=== PATIENT | female | born 1940 | race Caucasian/White ===

== ENCOUNTER 2018-09-21 09:15 | Outpatient (RCR) | payer MEDICARE, SELFPAY ==
[2018-07-20 11:05] VITALS: BMI 21.4
--- NOTE | 2018-12-14 12:04 | HP.SP.DC_ITS ---
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 The Patient participated in intervention sessions consisting of training and implementation of a Trismus based exercise program to promote improved (karin-irradiation) and sustained (post-irradiation) mandibular functioning; diet texture management; training, implementation of a home oral care protocol to reduce the effects of xerostomia and improve / maintain the integrity of the oral mucosa reducing the risk of aspiration related pulmonary complications; and Patient / caregiver education regarding karin and post- irradiation dysphagia and associated symptomology. The Patient demonstrated excellent comprehension and insight into the above mentioned intervention targets, with a high likelihood for compliance regarding all therapeutic recomm endations. Will discharge from the skilled speech-language pathology caseload at this time, as all intervention goals have been achieved, though would gladly re- initiate intervention as needed moving forward.
--- OUTSIDE RECORDS SUMMARY | 2018-12-17 18:46 | XMS RPT_ITS ---
:1940 Author Organization OHIP Support Name Relationship Address Phone TASNEEM ROTH Unavailable Unavailable + JOHN RTOH Unavailable [address] + [place] [address] ARNRACH TASNEEM Unavailable Unavailable + R Unavailable Unavailable Unavailable ARNOLD, TASNEEM Unavailable Unavailable + R Unavailable Unavailable Unavailable ARNOLD, TASNEEM Unavailable Unavailable + ARNOLD, TASNEEM Unavailable Unavailable + ARNOLD, TASNEEM Unavailable Unavailable + R Unavailable Unavailable Unavailable ARNOLD, TASNEEM Unavailable Unavailable + R Unavailable Unavailable Unavailable ARNOLD, TASNEEM Unavailable Unavailable + R Unavailable Unavailable Unavailable ARNOLD, TASNEEM Unavailable Unavailable + R Unavailable Unavailable Unavailable ARNOLD, TASNEEM Unavailable Unavailable + R Unavailable Unavailable Unavailable ARNOLD, TASNEEM Unavailable Unavailable + R Unavailable Unavailable Unavailable ARNOLD, TASNEEM Unavailable Unavailable + R Unavailable Unavailable Unavailable ARNOLD, TASNEEM Unavailable Unavailable + ARNOLD, TASNEEM Unavailable Unavailable + R Unavailable Unavailable Unavailable ARNOLD, TASNEEM Unavailable Unavailable + R Unavailable Unavailable Unavailable ARNOLD, TASNEEM Unavailable Unavailable Unavailable ARNOLD, TASNEEM Unavailable Unavailable + R Unavailable Unavailable Unavailable ARNOLD, TASNEEM Unavailable Unavailable + R Unavailable Unavailable Unavailable ARNOLD, TASNEEM Unavailable Unavailable + ARNOLD, TASNEEM Unavailable Unavailable Unavailable ARNOLD, TASNEEM Unavailable Unavailable + BILL ROTHW Unavailable [address] + [place] [address] BILL ROTHW Unavailable [address] + [place] [address] ARNOLD, TASNEEM Unavailable Unavailable + ARNOLD, TASNEEM Unavailable Unavailable + ARNOLD, TASNEEM Unavailable Unavailable + ARNOLD, TASNEEM Unavailable Unavailable + ARNOLD, TASNEEM Unavailable Unavailable + ARNOLD, TASNEEM Unavailable Unavailable + ARNOLD, TASNEEM Unavailable Unavailable + ARNOLD, TASNEEM Unavailable Unavailable Unavailable BILL ROTHW Unavailable [address] + [place] [address] ARNOLD, TASNEEM Unavailable Unavailable Unavailable JOHN ROTH Unavailable [address] + [place] [address] IRA, JOHN Unavailable [address] + [place] [address] Care Team Providers Name Role Phone Wayne Garcia Attending Unavailable Radha, Wayne Referring Unavailable GIN RYDER Primary Care Unavailable Radha, Wayne Attending Unavailable Lopez, Sharad Referring Unavailable GIN RYDER Primary Care Unavailable Radha, Wayne Attending Unavailable Lopez, Sharad Referring Unavailable GIN RYDER Primary Care Unavailable Radha, Wayne Consulting Unavailable Radha, Wayne Attending Unavailable Lopez, Sharad Referring Unavailable GIN RYDER Primary Care Unavailable Radha, Wayne Consulting Unavailable Radha, Wayne Attending Unavailable Lopez, Sharad Referring Unavailable GIN RYDER Primary Care Unavailable Radha, Wayne Consulting Unavailable Radha, Wayne Attending Unavailable Radha, Wayne Referring Unavailable Radha, Wayne Attending Unavailable Radha, Wayne Referring Unavailable Radha, Wayne Attending Unavailable Lopez, Sharad Referring Unavailable GIN RYDER Primary Care Unavailable Radha, Wayne Consulting Unavailable Radha, Wayne Attending Unavailable Lopez, Sharad Referring Unavailable GIN RYDER Primary Care Unavailable Radha, Wayne Consulting Unavailable Radha, Wayne Attending Unavailable Lopez, Sharad Referring Unavailable GIN RYDER Primary Care Unavailable Radha, Wayne Consulting Unavailable Radha, Wayne Attending Unavailable Lopez, Sharad Referring Unavailable GIN RYDER Primary Care Unavailable Radha, Wayne Consulting Unavailable Radha, Wayne Attending Unavailable Lopez, Sharad Referring Unavailable GIN RYDER Primary Care Unavailable Radha, Wayne Consulting Unavailable Radha, Wayne Attending Unavailable Lopez, Sharad Referring Unavailable GIN RYDER Primary Care Unavailable Radha, Wayne Consulting Unavailable Donna, Dr. Ileana Seymour Admitting Unavailable Exten, Dr. Ileana Seymour Attending Unavailable Alvarez, Arcadio K Admitting Unavailable Alvarez, Arcadio K Attending Unavailable Alvarez, Arcadio K Admitting Unavailable Alvarez, Arcadio K Attending Unavailable Exten, Dr. Ileana Seymour Admitting Unavailable Exten, Dr. Ileana Seymour Attending Unavailable Miscellaneous, Doctor Admitting Unavailable Miscellaneous, Doctor Attending Unavailable Kelli Kim Admitting Unavailable Kelli Kim Attending Unavailable ILEANA THOMPSON Attending Unavailable ALVAREZ, ARCADIO K Primary Care Unavailable DIPTI DUMAS Attending Unavailable EXTENILEANA Referring Unavailable ALVAREZ, ARCADIO K Primary Care Unavailable EXTENILEANA Attending Unavailable ALVAREZ, ARCADIO K Primary Care Unavailable EXTENILEANA Attending Unavailable ALVAREZ, ARCADIO K Primary Care Unavailable John Pedraza Admitting Unavailable John Pedraza Attending Unavailable No Doctor Assigned, Nodr Primary Care Unavailable Lopez, Sharad Admitting Unavailable Lopez, Sharad Attending Unavailable Alvarez, Arcadio K Primary Care Unavailable GHAZOUL, THOMAS Attending Unavailable SELF, SELF Referring Unavailable GHAZOUL, THOMAS Admitting Unavailable GHAZOUL, THOMAS Attending Unavailable GHAZOUL, THOMAS Referring Unavailable GHAZOUL, THOMAS Attending Unavailable GHAZOUL, THOMAS Referring Unavailable GHAZOUL, THOMAS Attending Unavailable SELF, SELF Referring Unavailable GHAZOUL, THOMAS Attending Unavailable SELF, SELF Referring Unavailable ABHISHEKAZOUL, THOMAS Attending Unavailable ILEANA THOMPSON JR. Referring Unavailable Dr. Sharad Lopez Attending Unavailable John Pedraza Sr Referring Unavailable ALVAREZ, ARCADIO L Primary Care Unavailable Lopez, Dr. Sharad Rapp Attending Unavailable ALVAREZ, ARCADIO L Primary Care Unavailable Lopez, Dr. Sharad Rapp Attending Unavailable ALVAREZ, ARCADIO L Primary Care Unavailable Lopez, Dr. Sharad Rapp Attending Unavailable Lopez, Dr. Sharad Rapp Referring Unavailable ALVAREZ, ARCADIO L Primary Care Unavailable Santoyo, Ms. Kiarra Carnes Attending Unavailable Francis, Dr. Kelli Benjamin Referring Unavailable ALVAREZ, ARCADIO L Primary Care Unavailable Francis, Dr. Kelli Benjamin Attending Unavailable Lopez, Dr. Sharad Rapp Referring Unavailable ALVAREZ, ARCADIO L Primary Care Unavailable Lopez, Dr. Sharad Rapp Admitting Unavailable Lopez, Dr. Sharad Rapp Attending Unavailable Ileana Thompson Referring Unavailable ALVAREZ, ARCADIO L Primary Care Unavailable Lopez, Dr. Sharad Rapp Attending Unavailable Lopez, Dr. Sharad Rapp Referring Unavailable ALVAREZ, ARCAIDO L Primary Care Unavailable ALVAREZ, ARCADIO L Primary Care Unavailable Lopez, Dr. Sharad Rapp Attending Unavailable Lopez, Dr. Sharad Rapp Referring Unavailable ALVAREZ, ARCADIO L Primary Care Unavailable Francis, Dr. Kelli Benjamin Attending Unavailable ALVAREZ, ARCADIO L Referring Unavailable ALVAREZ, ARCADIO L Primary Care Unavailable Lopez, Dr. Sharad Rapp Attending Unavailable Lopez, Dr. Sharad Rapp Referring Unavailable ALVAREZ, ARCADIO L Primary Care Unavailable Lopez, Dr. Sharad Rapp Attending Unavailable Lopez, Dr. Sharad Rapp Referring Unavailable ALVAREZ, ARCADIO L Primary Care Unavailable PROBLEMS PROBLEMS DATE TYPE CONDITION / CODE ATTENDING STATUS SOURCE Unknown Z51.0 - Encounter for Wayne Garcia antineoplastic Community radiation therapy / Hospital Z51.0(ICD-10) Repository Unknown C44.320 - Squamous Wayne Garcia cell carcinoma of skin Community of unspecified parts Hospital of face / Repository C44.320(ICD-10) Unknown C44.300 - Unspecified Radha, Wayne Active [facility] malignant neoplasm of Community skin of unspecified Hospital part of face / Repository C44.300(ICD-10) Unknown R25.2 - Cramp and Wayne Garcia Active [facility] spasm / R25.2(ICD-10) Community Hospital Repository Unknown K12.33 - Oral Radha Wayne Active [facility] mucositis (ulcerative) Community due to radiation / Hospital K12.33(ICD-10) Repository Unknown C44.92 - Squamous cell Radha Wayne Active [place] 8 carcinoma of skin, Community unspecified / Hospital C44.92(ICD-10) Repository Admitting Basal cell carcinoma Dr. Jessica [facility] 8 diagnosis skin/ r ear and [facility] external auric canal / [facility] Repository C44.212(ICD-10) Final Basal cell carcinoma Dr. Jessica [facility] 8 diagnosis skin/ r ear and [facility] (discharge) external auric canal / [facility] Repository C44.212(ICD-10) Final Malignant neoplasm of Dr. Jessica [facility] 8 diagnosis parotid gland / [facility] (discharge) C07(ICD-10) [facility] Repository Final Personal history of Dr. Jessica [facility] 8 diagnosis [facility] / Z85.72(ICD-10) [facility] Repository Final Personal history of Dr. Jessica [facility] 8 diagnosis irradiation / [facility] (dis[facility]) Z92.3(ICD-10) [facility] Repository Final Unspecified hearing Dr. Jessica [facility] 8 diagnosis loss, right ear / [facility] (discharge) H91.91(ICD-10) [facility] Repository Final Essential (primary) Dr. Jessica Active [place] 8 diagnosis hypertension / [facility] (discharge) I10(ICD-10) [facility] Repository Final Hyperlipidemia, Dr. Jessica Active [place] 8 diagnosis unspecified / [facility] (discharge) E78.5(ICD-10) [facility] Repository Final Gastro-esophageal Dr. [facility] 8 diagnosis reflux disease without [facility] (discharge) esophagitis / [facility] Repository K21.9(ICD-10) Final Snsrnrl hear loss, [place], Ms. [place] [address] diagnosis uni, l ear, with [facility] (discharge) rstrcd hear cntra side Repository / H90.A22(ICD-10) Final Mix cndct/snrl hear Santoyo, Ms. [place] [address] diagnosis loss,uni,r ear w [facility] (discharge) rstrcd hear cntra side Repository / H90.A31(ICD-10) Final Encounter for other Dr. Jessica [place] [address] diagnosis preprocedural [facility] (discharge) examination / [facility] Repository Z01.818(ICD-10) Final Basal cell carcinoma Dr. 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, lymph nodes [facility] of multiple sites / Repository C83.38(ICD-10) Admitting Neoplasm of uncertain [facility] [place] [address] Diagnosis behavior of skin / [facility] ([place]) D48.5(ICD-10) Repository Admitting Personal history of GHAZOUL, [facility] 8 Diagnosis other malignant [facility] neoplasm of skin / Repository Z85.828(ICD-10) PROCEDURES PROCEDURES DATE CODE DESCRIPTION STATUS SOURCE 06/20/2018 [id number](ICD10- [id number] [facility] Repository 06/20/2018 [id number](ICD10- [id number] Completed [facility] Hospitals Repository 06/20/2018 [id number](ICD10- [id number] Completed [facility] Hospitals Repository 06/20/2018 [id number](ICD10- [id number] Completed [facility] Hospitals Repository 06/20/2018 [id number](ICD10- 07MN0JX Completed [facility] Hospitals Repository 06/20/2018 [id number](ICD10- 49L957B Completed [facility] Hospitals Repository 06/20/2018 [id number](ICD10- [id number] Completed [facility]) Hospitals Repository RESULTS RESULTS ESTABLISHED VISIT Observed: 12/10/2018 Status: UNK Source: [place] (OTOLARYNGOLOGY) 11:11 PM HOSPITALS REPOSITORY Chief Complaint cancer follow up History of Present Illness Ms. 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 She completed adjuvant radiation therapy 09/21/18. Right facial nerve weakness continues t o improve with full eye closure. Overall she is continuing to improve. She is tolerating regular diet. Denies odynophagia, dysphagia or otalgia. Denies weight loss. No fevers/chills. No night sweats. 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 Pedraza +BCC 06/20/18: S/p radical resection of her right facial skin, measuring 6 x 4.5cm, right parotidectomy with facial nerve dissection and preservation, right submental island flap, complex facial closure measu ring 20 cm, mastoid obliteration, right partial auriculectomy, right-sided lateral temporal bone excision with Dr. Kim and myself. Final pathology with +inv SCCa negative but close margin. 07/31/18: PET scan with 1.2cm nodule within the parotid space (SUV 2.5), no FDG avid lymph node metastasis or distant metastasis 08/10/18: Started postoperative adjuvant radiation 09/21/18: completed radiation therapy at [facility] with Dr. Garcia SH: Tob: Never ETOH: Denies Here with son Review of Systems ENT and Constitutional systems have been reviewed and are negative for complaint except what is stated in the HPI and/or Past Medical History. all other systems have been reviewed and are negative for complaint. 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) Past Medical History History of BPH (V13.89) (Z87.438) History of gastroesophageal reflux (GERD) (V12.79) (Z87.19) History of high cholesterol (V12.29) (Z86.39) Surgical History History of Craniotomy Excision Of Benign Cranial Bone Tumor History of Tonsillectomy Social History Caffeine use (V49.89) (Z78.9) Never a smoker No alcohol use No illicit drug use Person living alone (V60.3) (Z60.2) Retired (V61.07) (Z63.4) Allergies No Known Drug Allergies Recorded By: Tracey Kaur; 05/10/2018 1:48:36 PM Egg White Recorded By: Tracey Kaur; 05/10/2018 1:47:45 PM Current Meds TraMADol HCl - 50 MG Oral Tablet; TAKE 1 TABLET EVERY 4 TO 6 HOURS NEEDED FOR PAIN; Therapy: [id number] to (Evaluate:[id number]); Last Rx:[id number] Ordered Rx By: Kelli Kim; Dispense: 5 Days ; #:30 Tablet; Refill: 0;For: Pain, cancer; NILESH = N; Print Rx AmLODIPine Besylate 5 MG Oral Tablet; Therapy: 20Sep2017 to Recorded Dispense: 90 Days ; #:90; Refill: 0; NILESH = N; Record; Last Updated By: Tracey aKur; 05/10/2018 1:42:29 PM Artificial Tears 0.1-0.3 % Ophthalmic Solution; Therapy: 03Jul2018 to Recorded Dispense: 0 Days ; #: Sufficient ML; Refill: 0; NILESH = N; Record; Last Updated By: Gifty Chacon; 07/03/2018 1:49:26 PM Cmfzfxl-Litvkjzl-Gzfhixvgi-HC 1 % Ophthalmic Ointment; Therapy: 03Jul2018 to Recorded Dispense: 0 Days ; #: Sufficient GM; Refill: 0; NILESH = N; Record; Last Updated By: Gifty Chacon; 07/03/2018 1:49:26 PM Gabapentin 300 MG Oral Capsule; Therapy: 15Aug2017 to Recorded Dispense: 90 Days ; #:90; Refill: 0; NILESH = N; Record; Last Updated By: Tracey Kaur; 05/10/2018 1:42:50 PM Gemfibrozil 600 MG Oral Tablet; Therapy: 26Jul2017 to Recorded Dispense: 90 Days ; #:180; Refill: 0; NILESH = N; Record; Last Updated By: Tracey Kaur; 05/10/2018 1:43:23 PM Omeprazole 20 MG Oral Capsule Delayed Release; Therapy: 26Jul2017 to Recorded Dispense: 90 Days ; #:90; Refill: 0; NILESH = N; Record; Last Updated By: Tracey Kaur; 05/10/2018 1:43:35 PM Rosuvastatin Calcium 5 MG Oral Tablet; Therapy: 23Sep2017 to Recorded Dispense: 90 Days ; #:90; Refill: 0; NILESH = N; Record; Last Updated By: Tracey Kaur; 05/10/2018 1:44:09 PM Vitals Vital Signs Recorded: 04Dec2018 02:12PM Rybpwcgacfv89.6 F [id number] Zidtndiwe14 Height5 ft 9 in Rooxlz800 lb BMI Dyhawbjxpq33.15 BSA Calculated1.83 Physical Exam Constitutional: General appearance: Appears stated age, well-nourished, well groomed. No acute distress. Much improved right facial weakness. Strong midface movement. She does have complete eye closure on the right. Sh e is weak over the forehead and corner of the mouth but improved compared to previous Communication: Normal communication without aids or christian education director, normal voice quality. No hoarseness, stridor or stertor. Psychiatric: Oriented to person, place and time. Normal mood and affect. Neurologic: Cranial nerves II-XII grossly intact and symmetric bilaterally except for her right facial nerve which is HBII, she has complete eye closure now with no asymmetry at rest, no lagophthalmos Head and Face: Head: Atraumatic with no masses, lesions or scarring. Face: Abnormal, +asymmetry s/p right radical facial resection with partial auriculectomy and submental flap reconstruction but her appearance is much improved and more symmetric. The submental island fl ap is healthy and pink. Viable with good capillary refill. All incisions well healed. Right cheek edema is consistent with lymphedema and is soft to palpation. Salivary glands: S/p right parotidectomy with submental island flap reconstruction. TMJ: Normal, no trismus. Eyes: Right eye much improved. Full eye closure. No erythema or injection. No epiphora or erythema. Left conjunctiva not edematous or erythematous Ears: Submental island flap overlying right ear very healthy, pink, soft and good capillary refill. Remaining right helix intact without evidence of hematoma or necrosis. Preauricular area soft, nontender. Nose: External inspection of nose: No nasal lesions, lacerations or scars. Septum midline. No inferior turbinate hypertrophy. Patent with good air entry bilaterally. Oral Cavity/Mouth: No masses, lesions or ulcers along the lips, gingival or buccal mucosa. Floor of the mouth is soft without edema or masses. Teeth in fair condition. No masses, lesions or ulcers along the tongue. Hypoglossal weakness improved on the right. Oral cavity and oropharynx mucosa moist. Hard and soft palate intact and symmetric with no masses or lesions. Posterior oropharynx patent. Palate , posterior pharyngeal bee and tonsils normal, symmetric with no masses, lesions or ulcers. Neck: Right neck incision clean, dry and intact. Neck has right sided lymphedema collecting in the right cheek and jowl. Soft without fluctuance or hematoma. Submental incision well healed. Lymphatic: No palpable cervical lymphadenopathy, no submandibular lymphadenopathy, no supraclavicular lymphadenopathy. Cardiovascular: Examination of peripheral vascular system shows no clubbing or cyanosis. Respiratory: No respiratory distress increased work of breathing. Inspection of the chest with symmetric chest expansion and normal respiratory effort. 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 She is d oing well. Her facial nerve continues to improve on the right. She has mild xerostomia. She is tolerating full po. Follow up in 1-2 months with 3 month post-tx PET scan. Signatures Electronically signed by : Sharad Lopez MD; Dec 10 2018 11:11PM EST (Author) CBC WITH DIFF Collected: 11/17/2018 Status: F Source: [facility] 11:10 AM [facility] REPOSITORY TYPE CODE TESTS RESULT OUT OF RANGE REFERENCE UNITS LAB WBC 3.4-10.6 K/mcL WBC Normal 3.7 LAB RBC 3.7-5.0 M/mcL RBC Normal 4.42 LAB HGB 11.6-15.4 g/dL Normal Hemoglobin 13.1 LAB HCT 34.4-44.8 % Normal Hematocrit 37.4 LAB MCV 82.6-98.9 FL MCV Normal 84.6 LAB MCH 27.9-33.9 pg MCH Normal 29.7 LAB MCHC 33.1-35.1 g/dL MCHC Normal 35.1 LAB RDW 10.0-14.4 % High RDW 16.2 LAB PLT 162-402 K/mcL Low Platelet Count 101 LAB MPV 7.0-10.6 FL MPV Normal 7.0 LAB NEUT# 1.2-6.9 K/mcL Normal Neutrophil # 2.3 LAB LYMPH# 1.0-3.7 K/mcL Low Lymphocyte # 0.9 LAB MONO# 0.1-0.6 K/mcL Monocyte Normal # 0.2 LAB EOS# 0-0.5 K/mcL Normal Eosinophil # 0.2 LAB BASO# 0-0.2 K/mcL Basophil Normal # 0.0 LAB SEGNEU% % Normal Segmented Neut % 62.4 LAB LYMP% % Normal Lymphocyte% 24.2 LAB MO% % Monocyte Normal % 6.3 LAB EO% % Normal Eosinophil % 6.1 LAB BA% % Basophil Normal % 1.0 Performed By: #### LIPID, CBCDIF, HEPF, CHEM8, TSH #### Unless otherwise noted, all testing performed by [place] [address] CLIA: [id number] Local Truck Driver: Alvino Chandler M.D. TSH Collected: 11/17/2018 Status: F Source: [facility] 11:10 AM [facility] TYPE CODE TESTS RESULT OUT OF RANGE REFERENCE UNITS LAB TSH 0.270-4.200 uIU/mL Normal TSH 3.29 Result Comment: Samples from patients routinely receiving high dose biotin therapy (100-300 mg/day) may show falsely decreased results. Please correlate clinically. Please note reference range change as of 09/12/18. Performed By: #### LIPID, CBCDIF, HEPF, CHEM8, TSH #### Unless otherwise noted, all testing performed by [place] [address] CLIA: [id number] Local Truck Driver: Alvino Chandler M.D. HEPATIC FUNCTION Collected: 11/17/2018 Status: F Source: [facility] PANEL 11:10 AM [facility] REPOSITORY TYPE CODE TESTS RESULT OUT OF RANGE REFERENCE UNITS LAB AST 0-45 U/L Normal AST 14 (SGOT) Result Comment: This test result might be falsely depressed or falsely elevated on samples drawn from patients taking Sulfasalazine and Sulfapyridine. Venipuncture should occur prior to taking either of these drugs. LAB ALT 14-65 U/L Normal ALT (SGPT) 24 Result Comment: This test result might be falsely depressed or falsely elevated on samples drawn from patients taking Sulfasalazine and Sulfapyridine. Venipuncture should occur prior to taking either of these drugs. LAB ALKP 40-150 U/L Normal Alkaline Phosphatase 66 LAB BILIT 0.3-1.2 mg/dL Normal Bilirubin,Total 0.6 LAB BILID 0.0-0.4 mg/dL Normal Bilirubin, Direct 0.2 LAB PROT 6.0-8.0 g/dL Normal Protein, Total 6.6 LAB ALB 3.2-5.2 g/dL Normal Albumin 3.6 Performed By: #### LIPID, CBCDIF, HEPF, CHEM8, TSH #### Unless otherwise noted, all testing performed by [facility] [address]. [place], [place] [address] CLIA: [id number] Local Truck Driver: Alvino Chandler M.D. BASIC METABOLIC PANEL Collected: 11/17/2018 Status: F Source: [facility] 11:10 AM [facility] REPOSITORY TYPE CODE TESTS RESULT OUT OF REFERENCE UNITS RANGE LAB GLU 70-99 mg/dL High Glucose 103 Result Comment: This test result might be falsely depressed or falsely elevated on samples drawn from patients taking Sulfasalazine and Sulfapyridine. Venipuncture should occur prior to taking either of these drugs. LAB BUN 8-25 mg/dL BUN High 29 LAB CREA 0.60-1.20 mg/dL Creatinine 0.92 LAB eGFR >60 ml/min/1.73s Low q.m eGFR,NonAfrican-Am erican 59 Result Comment: Non- GFR Calc eGFR is an estimated Glomerular Filtration Rate based on the value of the patient's serum creatinine. In outpatients, eGFR should be used as a helpful tool in screening for CKD. In inpatients or patients with acute renal failure, eGFR represents the GFR at the moment of the draw and should be used with caution. LAB eGFRB ml/min/1.73sq.m eGFR, -Romanian >=60 Result Comment: GFR Calc LAB CALCM 8.4-10.2 mg/dL Calcium 8.4 LAB NA 135-145 mmol/L Sodium 140 LAB K 3.5-5.1 mmol/L Potassium 3.9 LAB CL 98-108 mmol/L Chloride 107 LAB CO2 21-32 mmol/L CO2 27 Performed By: #### LIPID, CBCDIF, HEPF, CHEM8, TSH #### Unless otherwise noted, all testing performed by [address] [address] CLIA: [id number] Local Truck Driver: Alvino Chandler M.D. LIPID PANEL Collected: 11/17/2018 Status: F Source: [facility] 11:10 AM [facility] REPOSITORY TYPE CODE TESTS RESULT OUT OF REFERENCE UNITS RANGE LAB CHOL 100-199 mg/dL Cholesterol Normal 170 LAB TRIG 30-150 mg/dL Triglycerides High 172 LAB HDL 40-59 mg/dL HDL Normal 55 LAB LDL 10-150 mg/dL LDL Normal 80 LAB VLDL 5-40 mg/dL VLDL Normal 34 LAB CHOL/HDL 3.2-5.0 Low CHOL/HDL Ratio 3.1 Result Comment: Female Coronary Heart Disease Risk Factor (CHDRF): Average risk= 4.4 1/2 Average risk= 3.3 2 times Average risk= 7.1 Performed By: #### LIPID, CBCDIF, HEPF, CHEM8, TSH #### Unless otherwise noted, all testing performed by [address] [address] CLIA: [id number] Local Truck Driver: Alvino Chandler M.D. ONCOLOGY FOLLOW-UP Observed: 10/19/2018 Status: F Source: [facility] 10:44 AM [facility] REPOSITORY [facility] Medical Records Department [address] [place] [address] Oncology Follow-Up Visit 10/19/18 1028 MR#: [id number] Acct: [id number] Name: ARCADIO ROTH Rep #: [id number] : 1940 78 From: Wayne Garcia DO PCP: OUT OF TOWN DOCTOR Status: REG RCR Y Location: [facility] Date of Service: 10/19/18 Last Clinic Visit: 09/21/18 Diagnosis: Arcadio Roth is a 77-year-old female who was previously diagnosed with non-Hodgkin's lymphoma treated with surgery, chemotherapy, and radiation therapy (2001) then again with chemotherapy for lymphoma recurrence (2011). She was then diagnosed with a basal cell carcinoma of the right cheek which was resected (12/09/16) and then in March 2018 she developed a firm mass in the previously resected area and she underwent a radical resection of the facial skin on the right measuring 6 x 4.5 cm, right parotidectomy with facial nerve dissection and preservation in a right submental eyelid flap with complex facial closure, mastoid obliteration, and right harsh auriculectomy (06/20/18) with pathology revealing high-grade squamous cell carcinoma. She completed adjuvant radiation therapy from 07/29/18 - 09/21/18. History of Present Illness: 2001: Patient had a tonsillectomy was diagnosed with non-Hodgkin's lymphoma. 05/08/2002: Patient completed 8 cycles of chemotherapy for large cell lymphoma -07/2002: Patient received adjuvant radiation therapy which included 4140 cGy in 23 fractions delivered to the tonsillar area and upper neck with a wedge pair technique using 3D conformal planning and a supraclavicular area was treated with a left anterior oblique field calculated to 3 cm depth. Treatment ports were then cone down to the primary tumor and right upper cervical lymph node areas with the same wedge pair technique and she received 900 centigray in 5 fractions. Examination at that time showed residual lymph nodes in the right upper neck and she received an 9 MeV electron boost consisting of 800 cGy in 2 fractions bringing the total dose to 5840 cGy in 30 fractions in 6 weeks. On August 29, 2002 she return for reevaluation in the right cervical mass was still palpable, it was decided to add 600 cGy delivered into fractions using 9 MeV electrons bringing the total dose up to 6440 cGy in 32 fractions over a total of 52 days. 2011: Patient had a recurrence of lymphoma and was treated with chemotherapy alone 12/09/2016: Patient underwent excision of the right cheek lesion with intermediate closure due to there being an ulcerated lesion involving the right cheek. Pathology demonstrated basal cell carcinoma with negative margins, deep margin is 0.1 cm. 10/31/2017: CT neck, chest, abdomen, and pelvis with IV and oral contrast was performed. 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 No adenopathy is noted in the chest, abdomen, or pelvis. No abnormalities noted. When reviewed by radiology in March 2018 it was noted that the CT scan (10/31/17) of the neck demonstrated a 1.3 x 1.0 x 1.2 cm subcutaneous heterogeneous nodule with ill-defined margins near the external ear canal and superior portion of the parotid gland. 03/08: Patient presented with increased right-sided facial pain as well as having a preauricular mass. 04/06/2018: CT neck was performed which demonstrated a right neck subcutaneous heterogeneous nodule with ill-defined margins abutting the anterior margin of the external ear, lateral margin of the temporomandibular joint, and superior margin of the parotid gland. This lesion measures about 3 x 2.1 x 1.4 cm. When compared to the previous examination dated October 2017 this lesion has clearly increased in size. There is hypoplastic appearance to the right thyroid. Otherwise no abnormalities are noted. 05/01/2018: Biopsy of the right preauricular mass was performed and pathology demonstrated incompletely excised basal cell carcinoma with inked margins positive for involvement. 05/10/2018: Evaluated by ENT and recommended to undergo surgical resection with reconstruction. 06/20/2018: Patient underwent radical resection of the right facial skin measuring 6 x 4.5 cm, right parotidectomy with facial nerve dissection and preservation, right submental island flap, complex fascial closure measuring 20 cm, mastoid obliteration, and right harsh auriculectomy. Also completed was right sided lateral temporal bone excision with preservation of the facial nerve. Pathology demonstrated within the right facial skin excision and parotidectomy and EAC resection there was invasive poorly differentiated squamous cell carcinoma with a maximal depth of invasion of 2.6 cm with carcinoma invading cartilage. Invasive carcinoma is present at the superior medial, inferior medial, and superior lateral margins with a section from the shaved inferior lateral margin showing a focus of invasive carcinoma and deemed her permanent sections but not in the original frozen section indicating the carcinoma is likely less than 1 mm from the margin in this area. The bony and deep soft tissue margins are uninvolved. Additional medial margins were re-excised and not shown to have any malignancy, additional lateral superior margins also re-excised with no evidence of malignancy. From 07/29/18 - 09/21/18: received 6996 cGy to the mildly PET avid nodule within the surgical region, 6600 cGy of 6 MV photons to the area of concern for very close margin, and 6000 cGy of 6 MV photons to the remaining post-op bed. All those regions were treated concurrently in 33 fractions using a simultaneous integrated boost technique with a VMAT plan. 09/21/2018: patient completed [employer] OPERATOR management for PO intake and mild trismus. Instructions provided for further self management and will contact [employer]OR[employer] CRANE OPERATOR if any new problems arise. Radiation Treatment History: 1) : Patient received adjuvant radiation therapy which included 4140 cGy in 23 fractions delivered to the tonsillar area and upper neck with a wedge pair technique using 3D conformal planning and a supraclavicular area was treated with a left anterior oblique field calculated to 3 cm depth. Treatment ports were then cone down to the primary tumor and right upper cervical lymph node areas with the same wedge pair technique and she received 900 centigray in 5 fractions. Examination at that time showed residual lymph nodes in the right upper neck and she received an 9 MeV electron boost consisting of 800 cGy in 2 fractions bringing the total dose to 5840 cGy in 30 fractions in 6 weeks. On August 29, 2002 she return for reevaluation in the right cervical mass was still palpable, it was decided to add 600 cGy delivered into fractions using 9 MeV electrons bringing the total dose up to 6440 cGy in 32 fractions over a total of 52 days. 2) From 07/29/18 - 09/21/18: received 6996 cGy to the mildly PET avid nodule within the surgical region, 6600 cGy of 6 MV photons to the area of concern for very close margin, and 6000 cGy of 6 MV photons to the remaining post-op bed. All those regions were treated concurrently in 33 fractions using a simultaneous integrated boost technique with a VMAT plan. Interval History: Patient returns for one-month follow-up after completing adjuvant radiation therapy to the right auricular region. She reports healing very well from treatment denies having current skin erythema or peeling. She reports dry mouth is at her baseline. Mouth opening is stable and she is able to swallow all foods except she struggles some with meats. With swallowing she has had choking one time but otherwise swallows without much difficulty. She has completed all speech therapy and has been discharged from their care. She reports sometimes doing the recommended exercises for swallowing and trismus prevention/treatment but does not do this consistently. She is consuming a mostly soft diet and is not using any supplemental nutrition at this time. She denies having pain in her oral cavity or pain with swallowing. She denies having current taste change. She reports no changes in left ear hearing and no changes in vision in either eye, right ear deafness present since surgery. She denies having alopecia or scalp irritation. She believes she has maintained her weight and is continuing to be active. She denies having any shortness of breath, chest pain, or extremity weakness/numbness. She completes all activities of daily living at home without any difficulty. I have reviewed the medical, surgical, and other pertinent history in details and have updated medication and allergy information in the electronic medical record. Review of Systems: A 12-point review of systems was completed and was negative except for what is noted in the HPI/Interval History and by the nurse. Height/Weight/BMI: Height: 5 ft 9 in Weight: 145.2 lbs (weight at end of treatment 143.9 lbs) Vital Signs Temperature 98.4 F 10/19/18 10:04 Temperature Source Oral 10/19/18 10:04 Pulse Rate 60 10/19/18 10:04 Respiratory Rate 16 10/19/18 10:04 Physical Exam: ECO KARNOFSKY SCORE: 90% CONSTITUTIONAL: Well-developed, well-nourished, and in no apparent distress. HEENT: Right facial droop very mild, mostly resolved. No facial numbness (other than post-surgical). Right eye closing completely without much difficulty. There is a well-healed flap involving the right preauricular and auricular region which measures approximately 6 cm x 4 cm. Partially resected external ear with the superior portion intact. There is no evidence of wound dehiscence or oozing, wound appears well-healed. No skin erythema or desquamation. Patient is edentulous. Two finger trismus present and stable. There are no lesions within the oral cavity or visualized oropharynx. Mucous membranes are moist and there is no thrush present. Pupils are equal, round, and reactive to light and accommodation. Extraocular movements are intact. Sclerae are anicteric. NECK: Supple,with no thyromegaly, and non-tender. Trachea midline. There is a firm nodular mass noted in the right level 2-3 lymph node region in the neck from previous surgery. No evidence for cervical adenopathy is appreciated. CARDIAC: Regular rate and rhythm. Normal S1, S2. No murmurs, rubs, or gallops. PULMONARY/CHEST: Lungs are clear to auscultation and percussion bilaterally. No wheezes, rhonchi, or crackles noted. No increased work of breathing. ABDOMINAL: Abdomen soft, non-tender, non-distended. No hepatomegaly. Normoactive bowel sounds in all four quadrants. No guarding, rebound. BACK: Straight and aligned. No CVA tenderness. Axial skeleton non-tender to percussion. EXTREMITIES: Full range of motion in all four extremities, with normal strength equally and symmetrically. No evidence of edema. No clubbing. NEUROLOGICAL EXAM: Alert and oriented x 3. Cranial nerves II through XII are grossly intact. Speech is fluent. Muscle strength is 5/5 in all muscle groups. Gait and posture are steady. PSYCHIATRIC: Appropriate mood and affect for the clinical situation. Imaging: As per HPI Laboratory Data: No new labs to review Assessment/Plan: Arcadio Roth is a 77-year-old female who was previously diagnosed with non-Hodgkin's lymphoma treated with surgery, chemotherapy, and radiation therapy (2001) then again with chemotherapy for lymphoma recurrence (2011). She was then diagnosed with a basal cell carcinoma of the right cheek which was resected (12/09/16) and then in March 2018 she developed a firm mass in the previously resected area and she underwent a radical resection of the facial skin on the right measuring 6 x 4.5 cm, right parotidectomy with facial nerve dissection and preservation in a right submental eyelid flap with complex facial closure, mastoid obliteration, and right harsh auriculectomy (06/20/18) with pathology revealing high-grade squamous cell carcinoma. She completed adjuvant radiation therapy from 07/29/18 - 09/21/18. Patient returns for a one-month follow-up after completing adjuvant radiation therapy to the right auricular region. She has healed very well from all radiation related toxicities. I reviewed skin care recommendations including lotion use in the treated area as well as sun protection. There is no evidence for disease recurrence on exam and clinically the patient is doing very well. She has stable swallowing and mild trismus and has been discharged from speech therapy, I recommended that she continue the exercises provided by speech therapy. Recommend completing PET scan for disease surveillance in 2 months (3 months post treatment) and I will discuss this with her ENT physician whom she saw last week. I will have her follow-up in clinic following the PET scan and she was instructed to call with any further questions or concerns in the interim. Wayne Garcia DO, MS [employer], Department of Radiation Oncology [facility] 10/19/18 1044 <Electronically signed by Wayne Garcia DO> Date Wayne Garcia DO CC: Sharad Lopez MD Signed ESTABLISHED VISIT Observed: 10/02/2018 Status: UNK Source: [facility] ([facility]NGOLOG[facility]) 2:31 PM [facility]ALS REPOSITORY Chief Complaint cancer follow up History of Present Illness Ms. 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 She completed adjuvant radiation therapy 09/21/18. Right facial nerve weakness continues t o improve. She now has full eye closure. No more issues drooling and she has restored oral competence on the right. She feels there is still some cheek swelling on the right. She is tolerating regular d iet. Denies odynophagia, dysphagia or otalgia. Denies weight loss. No fevers/chills. No night sweats. 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 Pedraza +BCC 06/20/18: S/p radical resection of her right facial skin, measuring 6 x 4.5cm, right parotidectomy with facial nerve dissection and preservation, right submental island flap, complex facial closure measu ring 20 cm, mastoid obliteration, right partial auriculectomy, right-sided lateral temporal bone excision with Dr. Kim and myself. Final pathology with +inv SCCa negative but close margin. 08/10/18: Started postoperative adjuvant radiation 09/21/18: completed radiation therapy at [facility] with Dr. Garcia SH: Tob: Never ETOH: Denies Here with son Review of Systems ENT and Constitutional systems have been reviewed and are negative for complaint except what is stated in the HPI and/or Past Medical History. all other systems have been reviewed and are negative for complaint. 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) Past Medical History History of BPH (V13.89) (Z87.438) History of gastroesophageal reflux (GERD) (V12.79) (Z87.19) History of high cholesterol (V12.29) (Z86.39) Surgical History History of Craniotomy Excision Of Benign Cranial Bone Tumor History of Tonsillectomy Social History Caffeine use (V49.89) (Z78.9) Never a smoker No alcohol use No illicit drug use Person living alone (V60.3) (Z60.2) Retired (V61.07) (Z63.4) Allergies No Known Drug Allergies Recorded By: Tracey Kaur; 05/10/2018 1:48:36 PM Egg White Recorded By: Tracey Kaur; 05/10/2018 1:47:45 PM Current Meds TraMADol HCl - 50 MG Oral Tablet; TAKE 1 TABLET EVERY 4 TO 6 HOURS NEEDED FOR PAIN; Therapy: [id number] to (Evaluate:[id number]); Last Rx:[id number] Ordered Rx By: Kelli Kim; Dispense: 5 Days ; #:30 Tablet; Refill: 0;For: Pain, cancer; NILESH = N; Print Rx AmLODIPine Besylate 5 MG Oral Tablet; Therapy: 20Sep2017 to Recorded Dispense: 90 Days ; #:90; Refill: 0; NILESH = N; Record; Last Updated By: Tracey Kaur; 05/10/2018 1:42:29 PM Artificial Tears 0.1-0.3 % Ophthalmic Solution; Therapy: 03Jul2018 to Recorded Dispense: 0 Days ; #: Sufficient ML; Refill: 0; NILESH = N; Record; Last Updated By: Gifty Chacon; 07/03/2018 1:49:26 PM Lgrrjga-Lbrklygn-Xwvytnnnb-HC 1 % Ophthalmic Ointment; Therapy: 03Jul2018 to Recorded Dispense: 0 Days ; #: Sufficient GM; Refill: 0; NILESH = N; Record; Last Updated By: Gifty Chacon; 07/03/2018 1:49:26 PM Gabapentin 300 MG Oral Capsule; Therapy: 15Aug2017 to Recorded Dispense: 90 Days ; #:90; Refill: 0; NILESH = N; Record; Last Updated By: Tracey Kaur; 05/10/2018 1:42:50 PM Gemfibrozil 600 MG Oral Tablet; Therapy: 26Jul2017 to Recorded Dispense: 90 Days ; #:180; Refill: 0; NILESH = N; Record; Last Updated By: Tracey Kaur; 05/10/2018 1:43:23 PM Omeprazole 20 MG Oral Capsule Delayed Release; Therapy: 26Jul2017 to Recorded Dispense: 90 Days ; #:90; Refill: 0; NILESH = N; Record; Last Updated By: Tracey Kaur; 05/10/2018 1:43:35 PM Rosuvastatin Calcium 5 MG Oral Tablet; Therapy: 23Sep2017 to Recorded Dispense: 90 Days ; #:90; Refill: 0; NILESH = N; Record; Last Updated By: Tracey Kaur; 05/10/2018 1:44:09 PM Vitals Vital Signs Recorded: 02Oct2018 01:55PM Heart Rate66 Ojcsnibtwip36 Hxpzqieo319 Apaotcyhw34 Height5 ft 9 in Nhkusj276 lb 12.00 oz BMI Ijyqmtjwgz63.23 BSA Calculated1.8 Physical Exam Constitutional: General appearance: Appears stated age, well-nourished, well groomed. No acute distress. Much improved right facial weakness. Strong midface movement. She does have complete eye closure on the right. Sh e is weak over the forehead and corner of the mouth but improved compared to previous Communication: Normal communication without aids or christian education director, normal voice quality. No hoarseness, stridor or stertor. Psychiatric: Oriented to person, place and time. Normal mood and affect. Neurologic: Cranial nerves II-XII grossly intact and symmetric bilaterally except for her right facial nerve which is HBII, she has complete eye closure now with no asymmetry at rest, no lagophthalmos Head and Face: Head: Atraumatic with no masses, lesions or scarring. Face: Abnormal, +asymmetry s/p right radical facial resection with partial auriculectomy and submental flap reconstruction but her appearance is much improved and more symmetric. The submental island fl ap is healthy and pink. Viable with good capillary refill. All incisions well healed. Right cheek edema is consistent with lymphedema and is soft to palpation. Salivary glands: S/p right parotidectomy with submental island flap reconstruction. TMJ: Normal, no trismus. Eyes: Right eye much improved. Full eye closure. No erythema or injection. No epiphora or erythema. Left conjunctiva not edematous or erythematous Ears: Submental island flap overlying right ear very healthy, pink, soft and good capillary refill. Remaining right helix intact without evidence of hematoma or necrosis. Preauricular area soft, nontender. Nose: External inspection of nose: No nasal lesions, lacerations or scars. Septum midline. No inferior turbinate hypertrophy. Patent with good air entry bilaterally. Oral Cavity/Mouth: No masses, lesions or ulcers along the lips, gingival or buccal mucosa. Floor of the mouth is soft without edema or masses. Teeth in fair condition. No masses, lesions or ulcers along the tongue. Hypoglossal weakness improved on the right. Oral cavity and oropharynx mucosa moist. Hard and soft palate intact and symmetric with no masses or lesions. Posterior oropharynx patent. Palate , posterior pharyngeal bee and tonsils normal, symmetric with no masses, lesions or ulcers. Neck: Right neck incision clean, dry and intact. Neck has right sided lymphedema collecting in the right cheek and jowl. Soft without fluctuance or hematoma. Submental incision well healed. Lymphatic: No palpable cervical lymphadenopathy, no submandibular lymphadenopathy, no supraclavicular lymphadenopathy. Cardiovascular: Examination of peripheral vascular system shows no clubbing or cyanosis. Respiratory: No respiratory distress increased work of breathing. Inspection of the chest with symmetric chest expansion and normal respiratory effort. 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 She is d oing well. Her facial nerve continues to improve on the right. Her hypoglossal weakness is now resolved. She has mild xerostomia. She is tolerating full po although with taste disturbance as expected. Follow up in 8 weeks. PET scan 12/22/17. Patient Discussion/Summary Dr. Lopez evaluated you today. Your care plan is outlined below: -- Follow up with Dr. Lopez in 2 months. This appointment was scheduled at the end of your visit today. If you need to reschedule, please call the office at [phone]. Please keep in mind that last minute cancellations often result in delayed follow-up appointments. Dr. Lopez makes every effort to run on time for your appointments. Therefore, if you are more than 30 minutes late for your appointment, unrelated to a scan or another appointment such as chemotherapy or radiation, your appointment will need to be rescheduled to another day. We appreciate your understanding. Signatures Electronically signed by : Sharad Lopez MD; Oct 02 2018 2:31PM EST (Author) ESTABLISHED VISIT Observed: 09/27/2018 Status: UNK Source: [facility] ([facility]) 4:12 PM HOSPITALS REPOSITORY Chief Complaint 1. Right-sided lateral temporal bone excision with preservation of the facial nerve. 2. Facial nerve monitoring. 3. Microsurgical add-on. History of Present Illness 78 year old woman here today post op s/p Right-sided lateral temporal bone excision with preservation of the facial nerve. She denies any dizziness. She has been completing facial physical therapy and repots improvement of facial nerve paralysis. Review of Systems ENT and Constitutional systems have been reviewed and are negative for complaint except what is stated in the HPI and/or Past Medical History. 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) Past Medical History History of BPH (V13.89) (Z87.438) History of gastroesophageal reflux (GERD) (V12.79) (Z87.19) History of high cholesterol (V12.29) (Z86.39) Surgical History History of Craniotomy Excision Of Benign Cranial Bone Tumor History of Tonsillectomy Social History Caffeine use (V49.89) (Z78.9) Never a smoker No alcohol use No illicit drug use Person living alone (V60.3) (Z60.2) Retired (V61.07) (Z63.4) Allergies No Known Drug Allergies Recorded By: Tracey Kaur; 05/10/2018 1:48:36 PM Egg White Recorded By: Tracey Kaur; 05/10/2018 1:47:45 PM Current Meds TraMADol HCl - 50 MG Oral Tablet; TAKE 1 TABLET EVERY 4 TO 6 HOURS NEEDED FOR PAIN; Therapy: [id number] to (Evaluate:[id number]); Last Rx:[id number] Ordered Rx By: Kelli Kim; Dispense: 5 Days ; #:30 Tablet; Refill: 0;For: Pain, cancer; NILESH = N; Print Rx AmLODIPine Besylate 5 MG Oral Tablet; Therapy: [id number] to Recorded Dispense: 90 Days ; #:90; Refill: 0; NILESH = N; Record; Last Updated By: Tracey Kaur; 05/10/2018 1:42:29 PM Artificial Tears 0.1-0.3 % Ophthalmic Solution; Therapy: [id number] to Recorded Dispense: 0 Days ; #: Sufficient ML; Refill: 0; NILESH = N; Record; Last Updated By: Gifty Chacon; 07/03/2018 1:49:26 PM Irdtehb-Sxpvfnmg-Qomdextzp-HC 1 % Ophthalmic Ointment; Therapy: [id number] to Recorded Dispense: 0 Days ; #: Sufficient GM; Refill: 0; NILESH = N; Record; Last Updated By: Gifty Chacon; 07/03/2018 1:49:26 PM Gabapentin 300 MG Oral Capsule; Therapy: [id number] to Recorded Dispense: 90 Days ; #:90; Refill: 0; NILESH = N; Record; Last Updated By: Tracey Kaur; 05/10/2018 1:42:50 PM Gemfibrozil 600 MG Oral Tablet; Therapy: 26Jul2017 to Recorded Dispense: 90 Days ; #:180; Refill: 0; NILESH = N; Record; Last Updated By: Tracey Kaur; 05/10/2018 1:43:23 PM Omeprazole 20 MG Oral Capsule Delayed Release; Therapy: 26Jul2017 to Recorded Dispense: 90 Days ; #:90; Refill: 0; NILESH = N; Record; Last Updated By: Tracey Kaur; 05/10/2018 1:43:35 PM Rosuvastatin Calcium 5 MG Oral Tablet; Therapy: 23Sep2017 to Recorded Dispense: 90 Days ; #:90; Refill: 0; NILESH = N; Record; Last Updated By: Tracey Kaur; 05/10/2018 1:44:09 PM Physical Exam Constitutional General appearance: Healthy-appearing, well-nourished, well groomed, in no acute distress. Ability to communicate: Normal communication without aids, normal voice quality. Head and face: Atraumatic. Grade 2 radiation skin burn. Submental island flap healing well. 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 Ears Otoscopic examination:[] No right ear canal. Auricle looks good. External inspection of ears: Ears normally formed and free of lesions. Nose: Dorsum symmetric with no visible or palpable deformities. External inspection of nose: No nasal lesions, lacerations, or scars. Nasal tip symmetrical with normal nasal valves. 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 She is here today s/p Right-sided lateral temporal bone excision with preservation of the facial nerve. On exam her submental island flap is healing well. 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 No right ear canal. Auricle looks good. - She is not interested in any hearing devices that were offered at any time. - RTC as needed, follow up with Dr. Lopez with head and neck cancer Patient Discussion/Summary Welcome to Dr. Nunn clinic. We are here to assist you through your ENT care at [facility]. Dr. Kim is an Ear surgeon. This means that she specializes in taking care of patients with complex ear problems. Dr. Kim's office number is [phone]. While you may see her at a satellite office, she has a team committed to help meet your healthcare needs at [facility]'s main campus. This number is t he most direct way to communicate with the office. Cindi is Dr. Nunn secretary to the vice president and she answers the office phone from 8am-4pm Tue-Tue. She can help you with many general questions and information. Questions that she cannot answer will be directed to [facility] appropriate staff. You may need to leave a message. In this case, someone from the team will call you back. Donna is Dr. Nunn primary nurse and can be reached by calling the office. Donna is in clinic with Dr. Nunn on Mondays, Tuesdays, most Wednesdays, and . Non-urgent calls will be returned o n non-clinic days typically Fridays. Sometimes, other team members will also be involved in your care. These people may include dieticians, social workers, speech therapists, fish hatchery supervisor, neurologist, and physical therapist. Dr. Kim will provide these referrals as needed. Please let her know if you would like to request a specific referral. For your convenience, Dr. Kim sees patients at several [facility] locations including [facility], [facility], and [facility] at the main [facility]. While we try to make your appointments as convenient as possible, occasionally a visit to another location may be necessary to provide the best care for you. We look forward to working with you to meet your healthcare goals. Dr. Kim makes every effort to run on time for your appointments. Therefore, if you are more than 30 minutes late unrelated to a scan or another appointment such therapy or audio This note is prepared by Rochelle Givens acting as Kelli Kim MD. All medical record entries made by the Scribe were at my direction and personally dictated by me. I have reviewed the chart and agree that the record accurately reflects my personal performance of the h istory, physical exam, assessment, plan, and diagnosis. I have also personally directed, reviewed, and agree with the discharge instructions. Kelli Kim MD. Signatures Electronically signed by : Kelli Kim MD; Sep 27 2018 4:12PM EST (Author) D/C SUMMARY- SP Observed: 09/21/2018 Status: F Source: [place] 6:44 PM [facility] REPOSITORY [facility] Speech Pathology [facility] 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 The Patient participated in intervention sessions targeting training and implementation of a Trismus based exercise program to promote improved (karin-irradiation) and sustained (post-irradiation) mandibular functioning; diet texture management; training, implementation of a home oral care protocol to reduce the effects of xerostomia and improve / maintain the integrity of the oral mucosa reducing the risk of aspiration related pulmonary complications; and Patient / caregiver education regarding karin and post- irradiation dysphagia and associated symptomology. The Patient is currently placed on a soft textured, thin liquid diet with the following recommended aspiration precautions in place: reduced bolus volume, multiple smaller meals as currently implemented, seated upright at 90 degrees during PO intake, frequent oral care and hydration maintenance; with no issues regarding diet texture tolerance reported, overall sustained intake levels. With the Patient appearing to manage PO intake and both home based oral care and recommended mandibular range of motion stretching and exercise / trismus program without complication, it is appropriate to proceed with discharge from the skilled speech-language caseload. Both the Patient and the Patient's family were encouraged to contact her medical team if any changes arise necessitating further skilled speech-language intervention. <Electronically signed by Lance Arshad M.A., CFY-MONORAIL CRANE OPERATOR> 09/21/18 1844 CC: Sharad Lopez MD; OUT OF TOWN DOCTOR; Wayne Garcia DO [facility] Signed END OF TREATMENT Observed: 09/21/2018 Status: F Source: [place] SUMMARY 3:13 PM [facility] REPOSITORY [facility] [address] [place] [address] End of Treatment Summary Date of Service: 09/21/18 1450 MR#: [id number] Acct: [id number] Name: ARCADIO ROTH Rep #: [id number] : 1940 From: Wayne Garcia DO Age/Sex: 78/F Location: [facility] Status: Signed End of Treatment Summary: Diagnosis: Arcadio Roth is a 77-year-old female who was previously diagnosed with non-Hodgkin's lymphoma treated with surgery, chemotherapy, and radiation therapy (2001) then again with chemotherapy for lymphoma recurrence (2011). She was then diagnosed with a basal cell carcinoma of the right cheek which was resected (12/09/16) and then in March 2018 she developed a firm mass in the previously resected area and she underwent a radical resection of the facial skin on the right measuring 6 x 4.5 cm, right parotidectomy with facial nerve dissection and preservation in a right submental eyelid flap with complex facial closure, mastoid obliteration, and right harsh auriculectomy (06/20/18) with pathology revealing high-grade squamous cell carcinoma. Oncologic History: 2001: Patient had a tonsillectomy was diagnosed with non-Hodgkin's lymphoma. 05/08/2002: Patient completed 8 cycles of chemotherapy for large cell lymphoma : Patient received adjuvant radiation therapy which included 4140 cGy in 23 fractions delivered to the tonsillar area and upper neck with a wedge pair technique using 3D conformal planning and a supraclavicular area was treated with a left anterior oblique field calculated to 3 cm depth. Treatment ports were then cone down to the primary tumor and right upper cervical lymph node areas with the same wedge pair technique and she received 900 centigray in 5 fractions. Examination at that time showed residual lymph nodes in the right upper neck and she received an 9 MeV electron boost consisting of 800 cGy in 2 fractions bringing the total dose to 5840 cGy in 30 fractions in 6 weeks. On August 29, 2002 she return for reevaluation in the right cervical mass was still palpable, it was decided to add 600 cGy delivered into fractions using 9 MeV electrons bringing the total dose up to 6440 cGy in 32 fractions over a total of 52 days. 2011: Patient had a recurrence of lymphoma and was treated with chemotherapy alone 12/09/2016: Patient underwent excision of the right cheek lesion with intermediate closure due to there being an ulcerated lesion involving the right cheek. Pathology demonstrated basal cell carcinoma with negative margins, deep margin is 0.1 cm. 10/31/2017: CT neck, chest, abdomen, and pelvis with IV and oral contrast was performed. 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 No adenopathy is noted in the chest, abdomen, or pelvis. No abnormalities noted. When reviewed by radiology in March 2018 it was noted that the CT scan (10/31/17) of the neck demonstrated a 1.3 x 1.0 x 1.2 cm subcutaneous heterogeneous nodule with ill-defined margins near the external ear canal and superior portion of the parotid gland. 03/08: Patient presented with increased right-sided facial pain as well as having a preauricular mass. 04/06/2018: CT neck was performed which demonstrated a right neck subcutaneous heterogeneous nodule with ill-defined margins abutting the anterior margin of the external ear, lateral margin of the temporomandibular joint, and superior margin of the parotid gland. This lesion measures about 3 x 2.1 x 1.4 cm. When compared to the previous examination dated October 2017 this lesion has clearly increased in size. There is hypoplastic appearance to the right thyroid. Otherwise no abnormalities are noted. 05/01/2018: Biopsy of the right preauricular mass was performed and pathology demonstrated incompletely excised basal cell carcinoma with inked margins positive for involvement. 05/10/2018: Evaluated by ENT and recommended to undergo surgical resection with reconstruction. 06/20/2018: Patient underwent radical resection of the right facial skin measuring 6 x 4.5 cm, right parotidectomy with facial nerve dissection and preservation, right submental island flap, complex fascial closure measuring 20 cm, mastoid obliteration, and right harsh auriculectomy. Also completed was right sided lateral temporal bone excision with preservation of the facial nerve. Pathology demonstrated within the right facial skin excision and parotidectomy and EAC resection there was invasive poorly differentiated squamous cell carcinoma with a maximal depth of invasion of 2.6 cm with carcinoma invading cartilage. Invasive carcinoma is present at the superior medial, inferior medial, and superior lateral margins with a section from the shaved inferior lateral margin showing a focus of invasive carcinoma and deemed her permanent sections but not in the original frozen section indicating the carcinoma is likely less than 1 mm from the margin in this area. The bony and deep soft tissue margins are uninvolved. Additional medial margins were re-excised and not shown to have any malignancy, additional lateral superior margins also re-excised with no evidence of malignancy. Radiation History: 1) -07/2002: Patient received adjuvant radiation therapy which included 4140 cGy in 23 fractions delivered to the tonsillar area and upper neck with a wedge pair technique using 3D conformal planning and a supraclavicular area was treated with a left anterior oblique field calculated to 3 cm depth. Treatment ports were then cone down to the primary tumor and right upper cervical lymph node areas with the same wedge pair technique and she received 900 centigray in 5 fractions. Examination at that time showed residual lymph nodes in the right upper neck and she received an 9 MeV electron boost consisting of 800 cGy in 2 fractions bringing the total dose to 5840 cGy in 30 fractions in 6 weeks. On August 29, 2002 she return for reevaluation in the right cervical mass was still palpable, it was decided to add 600 cGy delivered into fractions using 9 MeV electrons bringing the total dose up to 6440 cGy in 32 fractions over a total of 52 days. Due to having many high risk pathologic features following surgery including recurrent disease, 2.6 cm depth of invasion, cartilage and bone invasion, high- grade disease, angiolymphatic invasion, and very close margins, plan was made to complete adjuvant radiation therapy and this treatment was delivered for curative intent. Treatment was given according to the following parameters: ARCADIO ROTH received 6996 cGy of 6 MV photons to the mildly PET avid nodule within the surgical region, 6600 cGy of 6 MV photons to the area of concern for very close margin, and 6000 cGy of 6 MV photons to the remaining post-op bed. All those regions were treated concurrently in 33 fractions using a simultaneous integrated boost technique with a VMAT plan consisting of [address] beam [address] imaging was used for image guidance. The patient did not receive concurrent chemotherapy. Date of First Treatment: 08/08/18 Date of Last Treatment: 09/21/18 Total Elapsed Days (including weekend and holidays): 44 Missed Treatments: none Response and Tolerance: The patient tolerated this course of radiotherapy well overall. The following radiation related toxicities developed during the course of radiation therapy: * Grade 2 skin erythema with patchy dry desquamation which was treated with Remedy and Aquaphor * Grade 1 fatigue * Patient had trismus at baseline and was continually evaluated by MONORAIL CRANE OPERATOR, provided instructions on various exercises to continue to improve opening. * Mild Dysgeusia * Diet consisted of more soft foods and supplements as appetite decreased Total weight change during therapy: 5 lbs weight loss At the end of therapy the physical examination showed no evidence visible or palpable disease. Disposition: The patient tolerated the planned course of radiation therapy well without unexpected toxicity in an appropriate time course. I will have the patient follow- up in about 4 weeks for a routine visit to assess resolution of radiation toxicity. The patient will maintain scheduled follow-up visits with the other providers. Patient was instructed to call with any further questions or concerns in the interim. If we can provide any further information on this patient's course of care, please do not hesitate to ask. We would like to thank you very much for allowing us to participate in the care of this patient. Sincerely, Wayne Garcia DO, MS Roadway Designer, Department of Radiation Oncology [facility] 09/21/18 3223 <Electronically signed by Wayne Garcia DO> Date Wayne Garcia DO Cosigner Signature: Date (if applicable) CC: Sharad Lopez MD; OUT OF TOWN DOCTOR RADIATION ONCOLOGY Observed: 09/20/2018 Status: F Source: [place] VISIT 10:11 AM [facility] [address] [place] [id number] OFFICE VISIT Date of Service: 09/20/18 1008 MR#: [id number] Acct: [id number] Name: ARCADIO ROTH Rep #: [id number] : 1940 From: Wayne Garcia DO Age/Sex: 78/F Location: [facility] Status: Signed Date of Service: 09/20/18 Diagnosis: Arcadio Roth is a 77-year-old female who was previously diagnosed with non-Hodgkin's lymphoma treated with surgery, chemotherapy, and radiation therapy (2001) then again with chemotherapy for lymphoma recurrence (2011). She was then diagnosed with a basal cell carcinoma of the right cheek which was resected (12/09/16) and then in March 2018 she developed a firm mass in the previously resected area and she underwent a radical resection of the facial skin on the right measuring 6 x 4.5 cm, right parotidectomy with facial nerve dissection and preservation in a right submental eyelid flap with complex facial closure, mastoid obliteration, and right harsh auriculectomy (06/20/18) with pathology revealing high-grade squamous cell carcinoma. Due to the very high risk of local regional recurrence and concern by her surgeon plan was made to complete adjuvant radiation therapy consisting of 6996 cGy to the small nodule in the resection cavity demonstrated on the PET scan, 6600 cGy delivered to the areas of concern for very close or positive margin and 6000 cGy delivered to the entire remaining portion of the postop bed. All treatment will be completed within 33 fractions using simultaneous integrated boost technique. Treatment Data: Treatment Site: Right preauricular region and neck Current total dose/Total dose planned: 6784 cGy / 6996 cGy Fraction number: Chemotherapy: None Subjective: Doing well overall Edema: mild Pain: 2-3 Swallowing: no odynophagia or dysphagia Diet: more soft foods Mucositis: mild on right lateral cheek Skin: mild erythema right preauricular area and neck, patchy desquamation Energy: stable Hearing: deaf in right, normal in left Eye: closing well, no conjunctival irritation Taste: decreased Xerostomia: denies Mouth Opening: mild decrease and stiffness/soreness, eating softer foods Height/Weight/BMI: Height: 5 ft 9 in Weight: Baseline: 145 lbs, 08/09/18: 148.1 lbs, 08/16/18: 146.8 lbs, 08/23/18: 147.2 lbs, 08/30/18: 144.4 lbs, 09/06/18: 145 lbs, 09/13/18: 145.3 lbs, 09/20/18: 143.9 lbs) Vital Signs Temperature 98 F 09/20/18 10:01 Temperature Source Oral 09/20/18 10:01 Pulse Rate 74 09/20/18 10:01 Respiratory Rate 16 09/20/18 10:01 Objective: Gen: NAD ENT: Right Auricular flap healed well, no evidence of disease. Continued difficulty closing right eye but improving and can completely close, no conjunctival erythema. Mild Trismus. Edentulous, no mucositis or oral lesions. Skin: mild erythema involving pre-auricular/parotid area. patchy dry desquamation Assessment: Tolerating treatment well overall. All treatment related imaging has been reviewed and approved Skin: Grade 2 erythema Mild trismus at baseline Plan: Continue radiation therapy as planned, will finish tomorrow Skin: will use aquaphor Continue MMW. Continue soft diet, increase supplements as needed to maintain weight MONORAIL CRANE OPERATOR evaluating to prevent worsening trismus, exercises given. Recommended using baking soda/salt rinses and green tea rinses Follow-up in one month or sooner if needed. Thank you for allowing me to participate in the management and care of your patient. If I may answer any questions in the interim, please do not hesitate to contact me at any time. Wayne Garcia DO, MS Roadway Designer, Department of Radiation Oncology [facility] 09/20/18 1011 <Electronically signed by Wayne Garcia DO> Date Wayne Garcia DO [facility] Signature: Date (if applicable) CC: RADIATION ONCOLOGY Observed: 09/13/2018 Status: F Source: [place] VISIT 10:21 AM [facility] REPOSITORY [facility] [place] [address] OFFICE VISIT Date of Service: 09/13/18 1018 MR#: [id number] Acct: [id number] Name: ARCADIO RTOH Rep #: [id number] : 1940 From: Wayne Garcia DO Age/Sex: 78/F Location: [facility] Status: Signed Date of Service: 09/13/18 Diagnosis: Arcadio Roth is a 77-year-old female who was previously diagnosed with non-Hodgkin's lymphoma treated with surgery, chemotherapy, and radiation therapy (2001) then again with chemotherapy for lymphoma recurrence (2011). She was then diagnosed with a basal cell carcinoma of the right cheek which was resected (12/09/16) and then in March 2018 she developed a firm mass in the previously resected area and she underwent a radical resection of the facial skin on the right measuring 6 x 4.5 cm, right parotidectomy with facial nerve dissection and preservation in a right submental eyelid flap with complex facial closure, mastoid obliteration, and right harsh auriculectomy (06/20/18) with pathology revealing high-grade squamous cell carcinoma. Due to the very high risk of local regional recurrence and concern by her surgeon plan was made to complete adjuvant radiation therapy consisting of 6996 cGy to the small nodule in the resection cavity demonstrated on the PET scan, 6600 cGy delivered to the areas of concern for very close or positive margin and 6000 cGy delivered to the entire remaining portion of the postop bed. All treatment will be completed within 33 fractions using simultaneous integrated boost technique. Treatment Data: Treatment Site: Right preauricular region and neck Current total dose/Total dose planned: 5724 cGy / 6996 cGy Fraction number: Chemotherapy: None Subjective: Doing well overall Edema: mild Pain: 2-3 / 10 Swallowing: no odynophagia or dysphagia Diet: normal Mucositis: mild on right lateral cheek Skin: mild erythema right preauricular area and neck Energy: stable Hearing: deaf in right, normal in left Eye: closing well, no conjunctival irritation Taste: decreased Xerostomia: denies Mouth Opening: mild decrease and stiffness/soreness, eating softer foods Height/Weight/BMI: Height: 5 ft 9 in Weight: Baseline: 145 lbs, 08/09/18: 148.1 lbs, 08/16/18: 146.8 lbs, 08/23/18: 147.2 lbs, 08/30/18: 144.4 lbs, 09/06/18: 145 lbs, 09/13/18: 145.3 lbs Vital Signs Temperature 97.8 F 09/13/18 09:50 Temperature Source Oral 09/13/18 09:50 Pulse Rate 73 09/13/18 09:50 Respiratory Rate 16 09/13/18 09:50 Objective: Gen: NAD ENT: Right Auricular flap healed well, no evidence of disease. Continued difficulty closing right eye but improving and can completely close, no conjunctival erythema. Mild Trismus. Edentulous, no mucositis or oral lesions. Skin: mild erythema involving pre-auricular/parotid area. No desquamation Assessment: Tolerating treatment well overall. All treatment related imaging has been reviewed and approved Skin: Grade 1 erythema Mild trismus at baseline Plan: Continue radiation therapy as planned Skin: Continue remedy twice daily Continue MMW. Continue soft diet, increase supplements as needed to maintain weight MONORAIL CRANE OPERATOR evaluating to prevent worsening trismus, exercises given. Recommended using baking soda/salt rinses and green tea rinses Follow-up next week or sooner if needed. Thank you for allowing me to participate in the management and care of your patient. If I may answer any questions in the interim, please do not hesitate to contact me at any time. Wayne Garcia DO, MS Roadway Designer, Department of Radiation Oncology [facility] 09/13/18 1021 <Electronically signed by Wayne Garcia DO> Date Wayne Garcia DO Cosigner Signature: Date (if applicable) CC: ADULT EVALUATION - SP Observed: 09/06/2018 Status: F Source: HILL 4:33 PM [facility] REPOSITORY [facility] Speech [facility] [address] [place] [address]. [address] [place], [place] [id number] Fax REHABILITATION SERVICES INITIAL EVALUATION MR#: [id number] Acct: [id number] Name: ARCADIO ROTH Rep #: [id number] : 1940 78 From: Lance Arshad M.A., CFY-MONORAIL CRANE OPERATOR Referring Dr.: Wayne Garcia DO Status: REG RCR Insurance: [employer]ARE PPO SELF PAY INSURANCE History - History Date of Eval: 09/06/18 Medical Diagnosis (from RX): Basal cell carcinoma of the skin (C44.41); radiation therapy (z51.0) Date of Onset of Diagnosis: May 2018 Previous speech therapy: No Smoking Status: Never smoker - Pain Is pain an issue with your current prescribed condition?: No - Personal Right Hearing Abillity: Deaf Left Hearing Abillity: Normal Patients Living Arrangements: Alone Patient Allergies - Allergies Allergies EGGS Allergy (Uncoded 09/06/18 10:55) Nausea HAYFEVER Allergy (Uncoded 09/06/18 10:55) Itching Subjective Dysphagia - Comments REASON FOR REFERRAL: -: The Patient is a 78 year old female referred for an outpatient speech-language evaluation due to progressive difficulties with mandibular functioning secondary to adjuvant radiation therapy for high-grade squamous cell carcinoma. The Patient reports symptoms initially appeared after 06/20/2018 radical resection of the right facial skin with facial nerve dissection and initiation of adjuvant radiation therapy to the right preauricular region and neck, with reported difficulties with masticatory power and endurance, necessitating placement on a soft textured diet. The Patient reports very mild changes in weight (no more than 4lbs, with supplementation assisting to re-gain 2lbs this week), with a slight decrease in appetite since initiation of adjuvant radiation therapy (denies early satiety); further reports reduced intake durations, though has combated this with increased meal frequency (small meals at least every 2 hours). The Patient reports persistent xerostomia along with dysgeusia with development of a metallic taste to a majority of foods (with the exception of chocolate) treated with Magic mouthwash , intermittent diurnal and nocturnal sialorrhea (associated with structural changes following facial nerve dissection). Denies odynophagia, globus sensation, and substernal discomfort. All deny any prior issues with PO intake, deny any prior diet texture alterations, and deny any objective workup targeting dysphagia. The Patient is fully ambulatory with maintained cognition / orientation, lives at home, is independent for all ADL s and IADL s. PAST MEDICAL HISTORY: -: Non-Hodgkin's lymphoma status post-surgical intervention, chemotherapy, and radiation therapy (2001) with recurrence (2011) treated with chemotherapy; basal cell carcinoma of the right cheek status post radical resection of the right facial skin (12/09/2016) and right parotidectomy with facial nerve dissection and preservation, mastoid obliteration, and right harsh auriculectomy (06/20/2018) with resulting right facial paresis and right sided hearing loss (deaf), status post benign brain tumor resection (11/21/1997), history of shingles, status post tonsillectomy (2001). ORAL MOTOR ASSESSMENT AND MODIFIED CRANIAL NERVE ASSESSMENT: -: CNVII impaired; right facial asymmetry at rest / upon contraction; right labial asymmetry at rest and upon retraction / protrusion; insufficient labial seal; CNIX impaired; left palatal asymmetry with uvula deviated to the right; CNXII impaired; mild right lingual drift; CNV and X appear grossly within functional limits. Suboptimal mandibular range of motion (trismus, see below for further details). Upper / lower dentures in place, easily displaced. Xerostomia (dry mouth) with slight redness to the oral mucosa, cheilitis (dry / cracked lips), dry lingual surface without geographic appearance. Sufficient volitional cough intensity. OBJECTIVE DYSPHAGIA ASSESSMENT RESULTS: -: Repetitive Saliva Swallowing Test (RSST): Pass; > 2 dry swallows within 30 seconds; MASA Dysphagia Severity Score: 168 (Mild); MASA Aspiration Severity Score: 168 (Mild); MASA Dysphagia Risk Rating: Probable; moderate evidence for disorder requiring intervention or further investigation; Performance Status Scale for Head AND Neck Cancer Patients (PSS-HN): (250/300); Total Dysphagia Risk Score (TDRS): 11 intermediate risk (TDRS = 10 18) SUPPLEMENTARY DYSPHAGIA ASSESSMENT RESULTS: -: Sialorrhea Scoring Scale (SSS): 4 moderate, occasionally wet on the lips and chin; Malnutrition Screening Tool (MST): 2 at risk (currently managed by medical team) SUBJECTIVE AND OBJECTIVE TRISMUS ASSESSMENT RESULTS: -: Inter-incisor Distance (IID): 2.7 - Grade 2 (between 2.9 and 2 cm); Mandibular Function Impairment Questionnaire (MFIQ): sum score 42; functional impairment rating 3 (moderate) ORAL PREPARATORY PHASE FINDINGS: -: Oral preparatory phase marked by mastication inefficiency with prolonged mastication with reduced mandibular movement (grade II trismus (lockjaw) ORAL TRANSITIONAL PHASE FINDINGS: -: Oral transit phase marked by impaired anterior oral containment with intermittent right sided anterior bolus loss; sufficient oral clearance post deglutition; competent bolus manipulation without fragmented swallowing (piecemeal deglutition), though self-imposed reduction in bolus volume noted (appropriate); no lingual discoordination (no tremor / undulations) noted upon digital palpation; no signs of premature posterior bolus loss. PHARYNGEAL PHASE FINDINGS: -: Pharyngeal phase marked by mild reductions in hyolaryngeal excursion and duration upon digital palpation that may suggest suboptimal laryngeal vestibule closure / pressure / duration, though in isolation this may lack clinical significance; no signs of pharyngeal dyssynchrony; no signs or symptoms of pharyngeal dysmotility or velopharyngeal insufficiency; no signs or symptoms of penetration / aspiration throughout trials. DIET TEXTURE RECOMMENDATIONS: -: Will recommend continued soft textured, thin liquid diet with the following recommended aspiration precautions in place: reduced bolus volume, multiple smaller meals as currently implemented, seated upright at 90 degrees during PO intake, frequent oral care and hydration maintenance. Subjective Voice - Weight Weight:: 65.771 kg Plan - Plan Plan: Patient presents with mild oral dysphagia with grade II trismus (IID 2.7 cm). Cannot definitively rule out silent aspiration at bedside; would consider objective assessment of the oropharyngeal swallow function if silent aspiration is suspected (no current clinical suspicions). Patient would be considered at higher risk of malnutrition and dehydration throughout the irradiation process, though appears to be maintaining weight at current juncture despite changes in appetite and dysgeusia; medical team aware with supplemental approaches effective to date. Provided extensive Patient and family education regarding recommended mandibular range of motion stretching and exercise to reduce the effects of trismus and facilitate improved / maintained mandibular functioning, with handouts provided; further training is indicated. Provided Patient and family education regarding the importance of oral care throughout the irradiation process and post-irradiation, with recommendations for an aggressive oral care program that includes pre-rinse use prior to water intake; routine oral care / denture care in the a.m., prior to oral intake, after oral intake, and prior to bed via toothbrush / swab / rinse; frequent dental checkups post-irradiation. The Patient requires intensive skilled speech-language intervention 1-2x per week for 4 weeks targeting training and implementation of a Trismus based exercise program to promote improved (karin-irradiation) and sustained (post-irradiation) mandibular functioning; diet texture management; training, implementation of a home oral care protocol to reduce the effects of xerostomia and improve / maintain the integrity of the oral mucosa reducing the risk of aspiration related pulmonary complications; and Patient / caregiver education regarding karin and post-irradiation dysphagia and associated symptomology. - Prognosis Prognosis: Excellent - Goal #1-5 Goal #1: The Patient will tolerate the least restrictive means of nutrition to facilitate adequate hydration/nutrition with optimum safety and efficiency of the Patient s swallowing function during P.O. intake without overt signs and symptoms of aspiration across 3 consecutive sessions Goal #2: The Patient will demonstrate and utilize recommended mandibular range of motion stretching and exercise within the Patients clinical and home based program to improve and maintain overall mandibular functioning and oral preparatory functioning reducing the effects of trismus, with minimal cueing and prompting provide by the clinician, across 2 out of 3 sessions. Goal #3: The Patient will participate in a home based oral care program established during intervention sessions to facilitate improved and maintained integrity of the oral mucosa throughout the irradiation process with complete independence. Goal #4: Goal adjustment as needed. Education - Patient has Indicated that the Following Identified Educational Needs: None, Hearing/Vision/Speech Impaired The Patient has indicated that they have no educational or learning abilities that may effect their care.: Yes - Patient Instruction Patient Education: Diagnosis, Treatment Plan, Goals, Home Exercise Program Person Taught: Patient, Family Teaching Method: Discussion, Demonstration, Handout, Teach back Response to teaching: Return demonstration, Verbalize understanding, Reinforcement needed <Electronically signed by Lance Arshad M.A., CFY-MONORAIL CRANE OPERATOR> 09/06/18 1633 CC: Sharad Lopez MD; OUT OF TOWN DOCTOR; Wayne Garcia DO [facility] Signed For Medicare only, by signing this I certify the plan of care. Physicians Signature Date RADIATION ONCOLOGY Observed: 09/06/2018 Status: F Source: HILL VISIT 10:59 AM [facility] REPOSITORY [facility] [place] [address] OFFICE VISIT Date of Service: 09/06/18 1055 MR#: [id number] Acct: [id number] Name: ARCADIO ROTH Rep #: [id number] : 1940 From: Wayne Garcia DO Age/Sex: 78/F Location: OMD Status: Signed Date of Service: 09/06/18 Diagnosis: Arcadio Roth is a 77-year-old female who was previously diagnosed with non-Hodgkin's lymphoma treated with surgery, chemotherapy, and radiation therapy (2001) then again with chemotherapy for lymphoma recurrence (2011). She was then diagnosed with a basal cell carcinoma of the right cheek which was resected (12/09/16) and then in March 2018 she developed a firm mass in the previously resected area and she underwent a radical resection of the facial skin on the right measuring 6 x 4.5 cm, right parotidectomy with facial nerve dissection and preservation in a right submental eyelid flap with complex facial closure, mastoid obliteration, and right harsh auriculectomy (06/20/18) with pathology revealing high-grade squamous cell carcinoma. Due to the very high risk of local regional recurrence and concern by her surgeon plan was made to complete adjuvant radiation therapy consisting of 6996 cGy to the small nodule in the resection cavity demonstrated on the PET scan, 6600 cGy delivered to the areas of concern for very close or positive margin and 6000 cGy delivered to the entire remaining portion of the postop bed. All treatment will be completed within 33 fractions using simultaneous integrated boost technique. Treatment Data: Treatment Site: Right preauricular region and neck Current total dose/Total dose planned: 4664 cGy / 6996 cGy Fraction number: Chemotherapy: None Subjective: Doing well overall Edema: mild Pain: 2-3 / 10 Swallowing: no odynophagia or dysphagia Diet: normal Mucositis: mild on right lateral cheek Skin: mild erythema right preauricular area and neck Energy: stable Hearing: deaf in right, normal in left Eye: closing well, no conjunctival irritation Taste: decreased Xerostomia: denies Mouth Opening: mild decrease and stiffness/soreness, eating softer foods Height/Weight/BMI: Height: 5 ft 9 in Weight: Baseline: 145 lbs, 08/09/18: 148.1 lbs, 08/16/18: 146.8 lbs, 08/23/18: 147.2 lbs, 08/30/18: 144.4 lbs, 09/06/18: 145 lbs Vital Signs Temperature 97.7 F L 09/06/18 10:30 Temperature Source Oral 09/06/18 10:30 Pulse Rate 78 09/06/18 10:30 Respiratory Rate 16 09/06/18 10:30 Objective: Gen: NAD ENT: Right Auricular flap healed well, no evidence of disease. Continued difficulty closing right eye but improving and can completely close, no conjunctival erythema. Mild Trismus. Edentulous, no mucositis or oral lesions. Skin: mild erythema involving pre-auricular/parotid area. No desquamation Assessment: Tolerating treatment well overall. All treatment related imaging has been reviewed and approved Skin: Grade 1 erythema Mild trismus at baseline Plan: Continue radiation therapy as planned Skin: Continue remedy twice daily Continue MMW. Continue soft diet, increase supplements as needed to maintain weight Evaluated by MONORAIL CRANE OPERATOR today to provide further instructions about trismus Recommended using baking soda/salt rinses and green tea rinses Follow-up next week or sooner if needed. Thank you for allowing me to participate in the management and care of your patient. If I may answer any questions in the interim, please do not hesitate to contact me at any time. Wayne Garcia DO, MS Roadway Designer, Department of Radiation Oncology [facility] 09/06/18 1059 <Electronically signed by Wayne Garcia DO> Date Wayne [facility] DO [facility] Signature: Date (if applicable) CC: RADIATION ONCOLOGY Observed: 08/30/2018 Status: F Source: HILL VISIT 10:24 AM [facility] REPOSITORY [facility] [address] [place] [address]. [place] [address] OFFICE VISIT Date of Service: 08/30/18 1020 MR#: [id number] Acct: [id number] Name: ARCADIO ROTH Crow Rep #: [id number] : 1940 From: Wayne Garcia DO Age/Sex: 78/F Location: OMD Status: Signed Date of Service: 08/30/18 Diagnosis: Arcadio Roth is a 77-year-old female who was previously diagnosed with non-Hodgkin's lymphoma treated with surgery, chemotherapy, and radiation therapy (2001) then again with chemotherapy for lymphoma recurrence (2011). She was then diagnosed with a basal cell carcinoma of the right cheek which was resected (12/09/16) and then in March 2018 she developed a firm mass in the previously resected area and she underwent a radical resection of the facial skin on the right measuring 6 x 4.5 cm, right parotidectomy with facial nerve dissection and preservation in a right submental eyelid flap with complex facial closure, mastoid obliteration, and right harsh auriculectomy (06/20/18) with pathology revealing high-grade squamous cell carcinoma. Due to the very high risk of local regional recurrence and concern by her surgeon plan was made to complete adjuvant radiation therapy consisting of 6996 cGy to the small nodule in the resection cavity demonstrated on the PET scan, 6600 cGy delivered to the areas of concern for very close or positive margin and 6000 cGy delivered to the entire remaining portion of the postop bed. All treatment will be completed within 33 fractions using simultaneous integrated boost technique. Treatment Data: Treatment Site: Right preauricular region and neck Current total dose/Total dose planned: 3604 cGy / 6996 cGy Fraction number: Chemotherapy: None Subjective: Doing well overall Edema: mild Pain: 2-3 / 10 Swallowing: no odynophagia or dysphagia Diet: normal Mucositis: mild on right lateral cheek, has small sore in right lateral cheek which was present prior to XRT Skin: no irritation Energy: stable Hearing: deaf in right, normal in left Eye: closing well, no conjunctival irritation Taste: decreased Xerostomia: denies Mouth Opening: mild decrease and stiffness/soreness, eating softer foods Height/Weight/BMI: Height: 5 ft 9 in Weight: Baseline: 145 lbs, 08/09/18: 148.1 lbs, 08/16/18: 146.8 lbs, 08/23/18: 147.2 lbs, 08/30/18: 144.4 lbs Vital Signs Temperature 97.5 F L 08/30/18 09:55 Temperature Source Oral 08/30/18 09:55 Pulse Rate 68 08/30/18 09:55 Respiratory Rate 16 08/30/18 09:55 Objective: Gen: NAD ENT: Right Auricular flap healed well, no evidence of disease. Continued difficulty closing right eye but improving and can completely close, no conjunctival erythema. Mild Trismus. Edentulous, no mucositis or oral lesions. Skin: mild erythema involving pre-auricular/parotid area. No desquamation Assessment: Tolerating treatment well overall. All treatment related imaging has been reviewed and approved Skin: Grade 1 erythema Plan: Continue radiation therapy as planned Skin: Continue remedy twice daily MMW instructions provided. Continue soft diet, increase supplements to maintain weight Recommended using baking soda/salt rinses and green tea rinses Follow-up next week or sooner if needed. Thank you for allowing me to participate in the management and care of your patient. If I may answer any questions in the interim, please do not hesitate to contact me at any time. Wayne Garcia DO, MS Roadway Designer, Department of Radiation Oncology [facility] 08/30/18 1024 <Electronically signed by Wayne Garcia DO> Date Wayne [facility] DO [facility] Signature: Date (if applicable) CC: RADIATION ONCOLOGY Observed: 08/23/2018 Status: F Source: HILL VISIT 10:37 AM [facility] REPOSITORY [facility] [address] [place], [place] [address], [place] [address] OFFICE VISIT Date of Service: 08/23/18 1033 MR#: [id number] Acct: [id number] Name: ARCADIO ROTH Rep #: [id number] : 1940 From: Wayne Garcia DO Age/Sex: 78/F Location: OMD Status: Signed Date of Service: 08/23/18 Diagnosis: Arcadio Roth is a 77-year-old female who was previously diagnosed with non-Hodgkin's lymphoma treated with surgery, chemotherapy, and radiation therapy (2001) then again with chemotherapy for lymphoma recurrence (2011). She was then diagnosed with a basal cell carcinoma of the right cheek which was resected (12/09/16) and then in March 2018 she developed a firm mass in the previously resected area and she underwent a radical resection of the facial skin on the right measuring 6 x 4.5 cm, right parotidectomy with facial nerve dissection and preservation in a right submental eyelid flap with complex facial closure, mastoid obliteration, and right harsh auriculectomy (06/20/18) with pathology revealing high-grade squamous cell carcinoma. Due to the very high risk of local regional recurrence and concern by her surgeon plan was made to complete adjuvant radiation therapy consisting of 6996 cGy to the small nodule in the resection cavity demonstrated on the PET scan, 6600 cGy delivered to the areas of concern for very close or positive margin and 6000 cGy delivered to the entire remaining portion of the postop bed. All treatment will be completed within 33 fractions using simultaneous integrated boost technique. Treatment Data: Treatment Site: Right preauricular region Current total dose/Total dose planned: 2544 cGy / 6996 cGy Fraction number: Chemotherapy: None Subjective: Doing well overall Edema: mild Pain: 2-3 / 10 Swallowing: no odynophagia or dysphagia Diet: normal Mucositis: mild on right lateral cheek, has small sore in right lateral cheek which was present prior to XRT Skin: no irritation Energy: stable Hearing: deaf in right, normal in left Eye: closing well, no conjunctival irritation Taste: no changes Xerostomia: denies Height/Weight/BMI: Height: 5 ft 9 in Weight: Baseline: 145 lbs, 08/09/18: 148.1 lbs, 08/16/18: 146.8 lbs, 08/23/18: 147.2 lbs Vital Signs Temperature 97.5 F L 08/23/18 09:55 Temperature Source Oral 08/23/18 09:55 Pulse Rate 66 08/23/18 09:55 Respiratory Rate 16 08/23/18 09:55 Objective: Gen: NAD ENT: Right Auricular flap healed well, no evidence of disease. Continued difficulty closing right eye but improving and can completely close, no conjunctival erythema. No Trismus. Edentulous, no mucositis or oral lesions. Skin: no erythema or desquamation Assessment: Tolerating treatment well overall. All treatment related imaging has been reviewed and approved Reviewed potential treatment related toxicities and their management Mucositis on right Plan: Continue radiation therapy as planned Skin: Continue remedy twice daily MMW Rx and instructions provided. Recommended continued normal diet, recommended using baking soda/salt rinses and green tea rinses Follow-up next week or sooner if needed. Thank you for allowing me to participate in the management and care of your patient. If I may answer any questions in the interim, please do not hesitate to contact me at any time. Wayne Garcia DO, MS Roadway Designer, Department of Radiation Oncology [facility] 08/23/18 1037 <Electronically signed by Wayne Garcia DO> Date Wayne Garcia DO Cosigner Signature: Date (if applicable) CC: RADIATION ONCOLOGY Observed: 08/16/2018 Status: F Source: HILL VISIT 10:32 AM [facility] REPOSITORY [facility] [address] [place] [address] OFFICE VISIT Date of Service: 08/16/18 1028 MR#: [id number] Acct: [id number] Name: ARCADIO ROTH Rep #: [id number] : 1940 From: Wayne Garcia DO Age/Sex: 78/F Location: OMD Status: Signed Date of Service: 08/16/18 Diagnosis: Arcadio Roth is a 77-year-old female who was previously diagnosed with non-Hodgkin's lymphoma treated with surgery, chemotherapy, and radiation therapy (2001) then again with chemotherapy for lymphoma recurrence (2011). She was then diagnosed with a basal cell carcinoma of the right cheek which was resected (12/09/16) and then in March 2018 she developed a firm mass in the previously resected area and she underwent a radical resection of the facial skin on the right measuring 6 x 4.5 cm, right parotidectomy with facial nerve dissection and preservation in a right submental eyelid flap with complex facial closure, mastoid obliteration, and right harsh auriculectomy (06/20/18) with pathology revealing high-grade squamous cell carcinoma. Due to the very high risk of local regional recurrence and concern by her surgeon plan was made to complete adjuvant radiation therapy consisting of 6996 cGy to the small nodule in the resection cavity demonstrated on the PET scan, 6600 cGy delivered to the areas of concern for very close or positive margin and 6000 cGy delivered to the entire remaining portion of the postop bed. All treatment will be completed within 33 fractions using simultaneous integrated boost technique. Treatment Data: Treatment Site: Right preauricular region Current total dose/Total dose planned: 1484 cGy / 6996 cGy Fraction number: Chemotherapy: None Subjective: Doing well overall Edema: mild Pain: 0 / 10 Swallowing: no odynophagia or dysphagia Diet: normal Mucositis: none, has small sore in right lateral cheek which was present prior to XRT Skin: no irritation Energy: stable Hearing: deaf in right, normal in left Eye: closing well, no conjunctival irritation Height/Weight/BMI: Height: 5 ft 9 in Weight: Baseline: 145 lbs, 08/09/18: 148.1 lbs, 08/16/18: 146.8 lbs Vital Signs Temperature 98.4 F 08/16/18 10:05 Temperature Source Temporal Artery 08/16/18 10:05 Pulse Rate 68 08/16/18 10:05 Respiratory Rate 16 08/16/18 10:05 Objective: Gen: NAD ENT: Right Auricular flap healed well, no evidence of disease. Continued difficulty closing right eye but improving and can completely close, no conjunctival erythema. No Trismus. Edentulous, no mucositis or oral lesions. Skin: no erythema or desquamation Assessment: Tolerating treatment well overall. All treatment related imaging has been reviewed and approved Reviewed potential treatment related toxicities and their management Plan: Continue radiation therapy as planned Skin: Continue remedy twice daily Recommended continued normal diet, recommended using baking soda/salt rinses and green tea rinses Follow-up next week or sooner if needed. Thank you for allowing me to participate in the management and care of your patient. If I may answer any questions in the interim, please do not hesitate to contact me at any time. Wayne Garcia DO, MS [employer]way Designer, Department of Radiation Oncology [facility] 08/16/18 1032 <Electronically signed by Wayne Garcia DO> Date Wayne Garcia DO Cosigner Signature: Date (if applicable) CC: ESTABLISHED VISIT Observed: 08/14/2018 Status: UNK Source: [place] (OTOLARYNGOLOGY) 2:22 PM [facility]OSPITALS REPOSITORY Chief Complaint cancer follow up History of Present Illness Ms. ARCADIO ROTH, is a 78 year old female following up today s/p radical resection of her right facial skin, measuring 6 x 4.5cm, right parotidectomy with facial nerve dissection and preservation, right submental island flap, complex facial closure measuring 20 cm, mastoid obliteration, right partial auriculectomy, right-sided lateral temporal bone excision with Dr. Kim and myself on 06/20/2018. Overall, she is doing well. She just finished radiation treatments today. She has a weakness of the facial nerve on the right. She is continuing to use ointment in the right eye; however, she would like to stop using it as it makes her vision blurry. She has issues drooling and oral competence on the right. She is concerned above swelling over her right cheek. 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 Pedraza +BCC 06/20/18: S/p radical resection of her right facial skin, measuring 6 x 4.5cm, right parotidectomy with facial nerve dissection and preservation, right submental island flap, complex facial closure measu ring 20 cm, mastoid obliteration, right partial auriculectomy, right-sided lateral temporal bone excision with Dr. Kim and myself. Final pathology with negative but possible close margin. 08/10/18: Started postoperative adjuvant radiation SH: Tob: Never ETOH: Denies Here with family member Review of Systems ENT and Constitutional systems have been reviewed and are negative for complaint except what is stated in the HPI and/or Past Medical History. all other systems have been reviewed and are negative for complaint. 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) Past Medical History History of BPH (V13.89) (Z87.438) History of gastroesophageal reflux (GERD) (V12.79) (Z87.19) History of high cholesterol (V12.29) (Z86.39) Surgical History History of Craniotomy Excision Of Benign Cranial Bone Tumor History of Tonsillectomy Social History Caffeine use (V49.89) (Z78.9) Never a smoker No alcohol use No illicit drug use Person living alone (V60.3) (Z60.2) Retired (V61.07) (Z63.4) Allergies No Known Drug Allergies Recorded By: Tracey Karu; 05/10/2018 1:48:36 PM Egg White Recorded By: Tracey Kaur; 05/10/2018 1:47:45 PM Current Meds TraMADol HCl - 50 MG Oral Tablet; TAKE 1 TABLET EVERY 4 TO 6 HOURS NEEDED FOR PAIN; Therapy: [id number] to (Evaluate:[id number]); Last Rx:[id number] Ordered Rx By: Kelli Kim; Dispense: 5 Days ; #:30 Tablet; Refill: 0;For: Pain, cancer; NILESH = N; Print Rx AmLODIPine Besylate 5 MG Oral Tablet; Therapy: 20Sep2017 to Recorded Dispense: 90 Days ; #:90 TABS; Refill: 0; NILESH = N; Record; Last Updated By: Tracey Kaur; 05/10/2018 1:42:29 PM Artificial Tears 0.1-0.3 % Ophthalmic Solution; Therapy: 03Jul2018 to Recorded Dispense: 0 Days ; #: Sufficient ML; Refill: 0; NILESH = N; Record; Last Updated By: Gifty Chacon; 07/03/2018 1:49:26 PM Qwrbmlk-Umrabzrm-Cteocwuko-HC 1 % Ophthalmic Ointment; Therapy: 03Jul2018 to Recorded Dispense: 0 Days ; #: Sufficient GM; Refill: 0; NILESH = N; Record; Last Updated By: Gifty Chacon; 07/03/2018 1:49:26 PM Gabapentin 300 MG Oral Capsule; Therapy: 15Aug2017 to Recorded Dispense: 90 Days ; #:90 CAPS; Refill: 0; NILESH = N; Record; Last Updated By: Tracey Kaur; 05/10/2018 1:42:50 PM Gemfibrozil 600 MG Oral Tablet; Therapy: 26Jul2017 to Recorded Dispense: 90 Days ; #:180 TABS; Refill: 0; NILESH = N; Record; Last Updated By: Tracey Kaur; 05/10/2018 1:43:23 PM Omeprazole 20 MG Oral Capsule Delayed Release; Therapy: 26Jul2017 to Recorded Dispense: 90 Days ; #:90 CPDR; Refill: 0; NILESH = N; Record; Last Updated By: Tracey Kaur; 05/10/2018 1:43:35 PM Rosuvastatin Calcium 5 MG Oral Tablet; Therapy: 23Sep2017 to Recorded Dispense: 90 Days ; #:90 TABS; Refill: 0; NILESH = N; Record; Last Updated By: Tracey Kaur; 05/10/2018 1:44:09 PM Vitals Vital Signs Recorded: 14Aug2018 01:04PM Heart Rate68 Qsdcfudcjhl76 Lrbaquwv005 Qqmhofbuh12 Height5 ft 9 in Lzcgdm451 lb BMI Rkgcsqktny58.86 BSA Calculated1.82 Physical Exam Constitutional: General appearance: Appears stated age, well-nourished, well groomed. No acute distress. Stable right facial weakness. Strong midface movement. She does have complete eye closure on the right. She is we ak over the forehead and corner of the mouth. Communication: Normal communication without aids or christian education director, normal voice quality. No hoarseness, stridor or stertor. Psychiatric: Oriented to person, place and time. Normal mood and affect. Neurologic: Cranial nerves II-XII grossly intact and symmetric bilaterally except for her right facial nerve which is HBIII, she has complete eye closure but there is asymmetry at rest, +lagophthalmos ( mild) with pooling of tears as well as deviation of her tongue to the right consistent with right hypoglossal nerve weakness. Head and Face: Head: Atraumatic with no masses, lesions or scarring. Face: Abnormal, +asymmetry s/p right radical facial resection with partial auriculectomy and submental flap reconstruction with current FN weakness in all divisions. The submental island flap is erythem atous with good capillary refill. There is no drainage or dehiscence. All incisions intact. There is good blanching with palpation. No surrounding erythema. No seroma or hematoma. Right cheek edema is c onsistent with lymphedema and is soft to palpation. Salivary glands: S/p right parotidectomy with submental island flap reconstruction. TMJ: Normal, no trismus. Eyes: Right eye with visible asymmetry at rest, +lagophthalmos but full eye closure. No erythema or injection. No epiphora or erythema. Left conjunctiva not edematous or erythematous Ears: Submental island flap overlying right ear mildly erythematous, soft and good capillary refill. Remaining right helix intact without evidence of hematoma or necrosis. Preauricular area soft, nontender. Nose: External inspection of nose: No nasal lesions, lacerations or scars. Septum midline. No inferior turbinate hypertrophy. Patent with good air entry bilaterally. Oral Cavity/Mouth: No masses, lesions or ulcers along the lips, gingival or buccal mucosa. Floor of the mouth is soft without edema or masses. Teeth in fair condition. No masses, lesions or ulcers along the tongue. There is weakness of hypoglossal on the right. Oral cavity and oropharynx mucosa moist. Hard and soft palate intact and symmetric with no masses or lesions. Posterior oropharynx patent. Pal ate, posterior pharyngeal bee and tonsils normal, symmetric with no masses, lesions or ulcers. Neck: Right neck incision clean, dry and intact. Neck has right sided lymphedema collecting in the right cheek and jowl. Soft without fluctuance or hematoma. Submental incision well healed. Lymphatic: No palpable cervical lymphadenopathy, no submandibular lymphadenopathy, no supraclavicular lymphadenopathy. Cardiovascular: Examination of peripheral vascular system shows no clubbing or cyanosis. Respiratory: No respiratory distress increased work of breathing. Inspection of the chest with symmetric chest expansion and normal respiratory effort. Skin: No rashes in the head or neck Results/Data I personally reviewed available pathology with my findings as documented above in the HPI. 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 ARCADIO ROTH, is s/p radical resection of her right facial skin, measuring 6 x 4.5cm, right parotidectomy with facial nerve dissection and preservation, right submental island flap, complex facial c losure measuring 20 cm, mastoid obliteration. right partial auriculectomy, right- sided lateral temporal bone excision with Dr. Kim and myself on 06/20/2018 for basal cell carcinoma. - I recommend the patient continue to use the eye drops in her right eye as well as the opthalmic ointment at night. Patient okay to cut back on ointment use. However, she is aware she needs to use the ointment more frequently if she experiences any dryness or foreign body sensation. - We discussed that all of the branches of the facial nerve were intact after surgery, and the function of the face will return with time but can be delayed due to her radiation therapy. - Education was provided regarding incision care and lymphedema including massage, elevation, and moisturization. - I have recommended she direct food towards the left side or use a straw while eating. - Patient to follow up 1 week post treatment or sooner if any concerns. End of Encounter Meds AmLODIPine Besylate 5 MG Oral Tablet; Therapy: 20Sep2017 to Recorded Artificial Tears 0.1-0.3 % Ophthalmic Solution; Therapy: [id number] to Recorded Uyglyuj-Emojxsuj-Sueinknsx-HC 1 % Ophthalmic Ointment; Therapy: 46Kpb7011 to Recorded Gabapentin 300 MG Oral Capsule; Therapy: 15Aug2017 to Recorded Gemfibrozil 600 MG Oral Tablet; Therapy: 26Jul2017 to Recorded Omeprazole 20 MG Oral Capsule Delayed Release; Therapy: 26Jul2017 to Recorded Rosuvastatin Calcium 5 MG Oral Tablet; Therapy: 23Sep2017 to Recorded TraMADol HCl - 50 MG Oral Tablet; TAKE 1 TABLET EVERY 4 TO 6 HOURS NEEDED FOR PAIN; Therapy: [id number] to (Evaluate:[id number]); Last Rx:[id number] Ordered Signatures Electronically signed by : Sharad Lopez MD; Aug 14 2018 2:22PM EST (Author) RADIATION ONCOLOGY Observed: 08/09/2018 Status: F Source: [place] V[facility] 2:34 PM [facility] REPOSITORY [facility] [address] [place] [address] OFFICE VISIT Date of Service: 08/09/18 1347 MR#: [id number] Acct: [id number] Name: ARCADIO ROTH Rep #: [id number] : 1940 From: Wayne Garcia DO Age/Sex: 78/F Location: OMD Status: Signed Date of Service: 08/09/18 Diagnosis: Arcadio Roth is a 77-year-old female who was previously diagnosed with non-Hodgkin's lymphoma treated with surgery, chemotherapy, and radiation therapy (2001) then again with chemotherapy for lymphoma recurrence (2011). She was then diagnosed with a basal cell carcinoma of the right cheek which was resected (12/09/16) and then in March 2018 she developed a firm mass in the previously resected area and she underwent a radical resection of the facial skin on the right measuring 6 x 4.5 cm, right parotidectomy with facial nerve dissection and preservation in a right submental eyelid flap with complex facial closure, mastoid obliteration, and right harsh auriculectomy (06/20/18) with pathology revealing high-grade squamous cell carcinoma. Due to the very high risk of local regional recurrence and concern by her surgeon plan was made to complete adjuvant radiation therapy consisting of 6996 cGy to the small nodule in the resection cavity demonstrated on the PET scan, 6600 cGy delivered to the areas of concern for very close or positive margin and 6000 cGy delivered to the entire remaining portion of the postop bed. All treatment will be completed within 33 fractions using simultaneous integrated boost technique. Treatment Data: Treatment Site: Right preauricular region Current total dose/Total dose planned: 424 cGy / 6996 cGy Fraction number: Chemotherapy: None Subjective: Doing well overall Edema: mild Pain: 0 / 10 Swallowing: no odynophagia or dysphagia Diet: normal Mucositis: none Skin: no irritation Energy: stable Hearing: deaf in right, normal in left Height/Weight/BMI: Height: 5 ft 9 in Weight: Baseline: 145 lbs Vital Signs Temperature 96.7 F L 08/09/18 12:45 Temperature Source Axillary 08/09/18 12:45 Pulse Rate 61 08/09/18 12:45 Respiratory Rate 16 08/09/18 12:45 Objective: Gen: NAD ENT: Right Auricular flap healed well, no evidence of disease. Continued difficulty closing right eye, no conjunctival erythema. No Trismus. Edentulous, no mucositis or oral lesions. Skin: no erythema or desquamation Assessment: Tolerating treatment well overall. All treatment related imaging has been reviewed and approved Reviewed potential treatment related toxicities and their management Plan: Continue radiation therapy as planned Skin: Continue remedy twice daily Recommended continued normal diet, recommended using baking soda/salt rinses and green tea rinses Follow-up next week or sooner if needed. Thank you for allowing me to participate in the management and care of your patient. If I may answer any questions in the interim, please do not hesitate to contact me at any time. Wayne Garcia DO, MS [employer]way Designer, Department of Radiation Oncology [facility] 08/09/18 1977 <Electronically signed by Wayne Garcia DO> Date Wayne Garcia DO Cosigner Signature: Date (if applicable) CC: PET/CT TUMOR BASE Observed: 07/31/2018 Status: F Source: [facility] -THIGH INIT 11:20 AM [facility] REPOSITORY [facility] Imaging Services [address] [address] PET/CT Tumor Base -Thigh Init MR#: [id number] Acct: [id number] Name: ARCADIO ROTH Rep #: [id number] : 1940 F 77 From: Nicolas Lund DO PCP: OUT OF TOWN DOCTOR Status: REG RCR Study: PET/CT Tumor Base -Thigh Init Date of Exam: 07/31/18 Exam# [id number] Ordering Dr: Wayne Garcia DO EXAMINATION: FDG PET CT INDICATIONS: A 77-year-old female with history of head and neck carcinoma presenting for initial staging examination, status post resection and remote history of lymphoma. COMPARISON EXAMINATION: None available. INDEX LESION SIZE SUV INTERPRETATION Right lateral neck, parotid space nodular component 12.1 mm (frame 303) 2.5 Fulfills quantitative criteria for viable neoplasm TECHNIQUE: Following the intravenous administration of 14.27 mCi of F-18 deoxyglucose via the MediPort, multiplanar image acquisitions of the neck, chest, abdomen and pelvis to level of mid thigh, obtained at one hour post radiopharmaceutical administration contemporaneously interpreted with the current CT of the neck, chest, abdomen and pelvis to level of mid thigh, dated 07/31/18 via coregistration reveal: SERUM GLUCOSE LEVEL: 101 mg/dl. HEIGHT: 69 inches. WEIGHT: 148 lbs. FINDINGS: 1. There is no quantitative scintigraphic evidence of abnormal increased glucose metabolism on meticulous inspection of whole body acquisitions to include all three axis reconstructions. 2. A circumferential increase in glucose concentration noted in the right lateral neck-anatomic parotid space with a nodular component superiorly generating a calculated maximum standard uptake value of 2.5. The maximal axial diameter of the nodular abnormality is approximately 12.1 mm. 3. Normal physiologic distribution of the radiopharmaceutical is apparent in the hepatic (3.3) and splenic parenchyma, both renal units, bladder and visualized intestinal tract. There is uniform distribution of the radiopharmaceutical concentration defined in the visualized cerebellar hemispheres and cerebral cortical structures.? Diffuse intestinal tract activity is noted throughout all four quadrants of the abdominal-pelvic retroperitoneum, mesentery consistent with normal physiologic distribution of the radiopharmaceutical. Prominent glucose metabolism is noted in the anterior neck, laryngeal structures, which appear contiguous to the cricopharyngeus musculature most consistent with physiologic distribution of the radiopharmaceutical. Prominent glucose concentration is observed in the descending thoracic, as well as abdominal aorta. Pertinent CT findings are as follows. CHEST: Mais-B-Wfxt-MediPort placement is noted. Atherosclerotic calcification is defined in the thoracic aorta without evidence of dilatation, aneurysm formation. Bilateral subcentimeter axillary soft tissue densities are non-glucose avid. There are no parenchymal densities-nodules noted in the right-left hemithorax demonstrating discernible increased glucose metabolism. A calcified parenchymal density noted in the right lower lateral lung zone is ametabolic. ABDOMEN AND PELVIS: Atherosclerotic calcification is defined in the abdominal aorta without evidence of dilatation, aneurysm formation. Pelvic arterial calcification is observed. A uterine pessary device is defined. Dense calcification and/or postsurgical change are manifest in the bilateral lower hemipelvis. A fat-containing right inguinal hernia is noted. Right-left inguinal soft tissue densities demonstrate no evidence of increased glucose metabolism. Colonic diverticulosis is defined. SKELETAL: Degenerative changes defined in the cervical, thoracic and lumbar spine demonstrate no evidence for glucose hypermetabolism. PET/PET/CT Tumor Base -Thigh Init IMPRESSION: 1. ABNORMAL EXAMINATION INDICATIVE OF MALIGNANT VIABLE NEOPLASM. 2. Increased circumferential-ovoid glucose concentration noted in the right lateral neck, parotid space fulfills quantitative criteria for viable neoplasm at the level of the superior border, which appears to correspond to the positive margin defined on the surgical specimen histologic examination dated 06/20/18. 3. No other quantitatively significant hypermetabolic abnormalities are noted. There is no definitive scintigraphic evidence of distant metastatic disease. 4. Prominent glucose concentration observed in the descending thoracic, as well as abdominal aorta is commensurate with activated leukocytes associated with atherosclerotic plaque formation. (Haniff et al, Clinical Nuclear Medicine 29:93, 2004). Electronic Signature Nicolas Lund D.O. Electronically Signed: Nicolas Lund DO at 23:31 EDT Tel , Service support , CC: OUT OF TOWN DOCTOR; Wayne Garcia DO Station Attendant: Signed CBC WITH DIFF Collected: 07/28/2018 Status: F Source: [facility] 11:37 [facility] REPOSITORY TYPE CODE TESTS RESULT OUT OF RANGE REFERENCE UNITS LAB WBC 3.4-10.6 K/mcL WBC Normal 3.6 LAB RBC 3.7-5.0 M/mcL RBC Normal 4.30 LAB HGB 11.6-15.4 g/dL Normal Hemoglobin 12.6 LAB HCT 34.4-44.8 % Normal Hematocrit 37.0 LAB MCV 82.6-98.9 FL MCV Normal 86.0 LAB MCH 27.9-33.9 pg MCH Normal 29.2 LAB MCHC 33.1-35.1 g/dL MCHC Normal 33.9 LAB RDW 10.0-14.4 % High RDW 14.6 LAB PLT 162-402 K/mcL Low Platelet Count 140 LAB MPV 7.0-10.6 FL MPV Normal 7.6 LAB NEUT# 1.2-6.9 K/mcL Normal Neutrophil # 2.3 LAB LYMPH# 1.0-3.7 K/mcL Low Lymphocyte # 0.9 LAB MONO# 0.1-0.6 K/mcL Monocyte Normal # 0.2 LAB EOS# 0-0.5 K/mcL Normal Eosinophil # 0.1 LAB BASO# 0-0.2 K/mcL Basophil Normal # 0.0 LAB SEGNEU% % Normal Segmented Neut % 64.2 LAB LYMP% % Normal Lymphocyte% 25.5 LAB MO% % Monocyte Normal % 6.9 LAB EO% % Normal Eosinophil % 2.6 LAB BA% % Basophil Normal % 0.8 Performed By: #### LIPID, CBCDIF, TSH, HEPF, CHEM8 #### Unless otherwise noted, all testing performed by [facility] [address] [place], [place] [address] CLIA: [id number] Local Truck Driver: Alvino Chandler M.D. BASIC METABOLIC PANEL Collected: 07/28/2018 Status: F Source: [facility] 11:37 AM [facility] REPOSITORY TYPE CODE TESTS RESULT OUT OF RANGE REFERENCE UNITS LAB GLU 70-99 mg/dL Normal Glucose 98 Result Comment: This test result might be falsely depressed or falsely elevated on samples drawn from patients taking Sulfasalazine and Sulfapyridine. Venipuncture should occur prior to taking either of these drugs. LAB BUN 8-25 mg/dL Normal BUN 18 LAB CREA 0.60-1.20 mg/dL Normal Creatinine 0.87 LAB eGFR ml/min/1.73s Normal q.m eGFR,NonAfrican-A merican >=60 Result Comment: Non- GFR Calc eGFR is an estimated Glomerular Filtration Rate based on the value of the patient's serum creatinine. In outpatients, eGFR should be used as a helpful tool in screening for CKD. In inpatients or patients with acute renal failure, eGFR represents the GFR at the moment of the draw and should be used with caution. LAB eGFRB ml/min/1.73sq.m eGFR, Normal -Romanian >=60 Result Comment: GFR Calc LAB CALCM 8.4-10.2 mg/dL Low Calcium 8.0 LAB NA 135-145 mmol/L Sodium Normal 141 LAB K 3.5-5.1 mmol/L Normal Potassium 3.8 LAB CL 98-108 mmol/L Chloride Normal 107 LAB CO2 21-32 mmol/L CO2 Normal 27 Performed By: #### LIPID, CBCDIF, TSH, HEPF, CHEM8 #### Unless otherwise noted, all testing performed by [facility] [address] [place], [place] [address] CLIA: [id number] Local Truck Driver: Alvino Chandler M.D. TSH Collected: 07/28/2018 Status: F Source: [facility] 11:37 AM [facility] REPOSITORY TYPE CODE TESTS RESULT OUT OF RANGE REFERENCE UNITS LAB TSH 0.320-5.000 uIU/mL Normal TSH 3.09 Result Comment: Samples from patients routinely receiving high dose biotin therapy (100-300 mg/day) may show falsely decreased results. Please correlate clinically. Performed By: #### LIPID, CBCDIF, TSH, HEPF, CHEM8 #### Unless otherwise noted, all testing performed by [place] [address] CLIA: [id number] Local Truck Driver: Alvino Chandler M.D. HEPATIC FUNCTION Collected: 07/28/2018 Status: F Source: [facility] 11:37 AM [facility] REPOSITORY TYPE CODE TESTS RESULT OUT OF RANGE REFERENCE UNITS LAB AST 0-45 U/L Normal AST 20 (SGOT) Result Comment: This test result might be falsely depressed or falsely elevated on samples drawn from patients taking Sulfasalazine and Sulfapyridine. Venipuncture should occur prior to taking either of these drugs. LAB ALT 14-65 U/L Normal ALT (SGPT) 22 Result Comment: This test result might be falsely depressed or falsely elevated on samples drawn from patients taking Sulfasalazine and Sulfapyridine. Venipuncture should occur prior to taking either of these drugs. LAB ALKP 40-150 U/L Normal Alkaline Phosphatase 65 LAB BILIT 0.3-1.2 mg/dL Normal Bilirubin,Total 0.5 LAB BILID 0.0-0.4 mg/dL Normal Bilirubin, Direct 0.2 LAB PROT 6.0-8.0 g/dL Normal Protein, Total 6.5 LAB ALB 3.2-5.2 g/dL Normal Albumin 3.5 Performed By: #### LIPID, CBCDIF, TSH, HEPF, CHEM8 #### Unless otherwise noted, all testing performed by [place] [address] CLIA: [id number] Local Truck Driver: Alvino Chandler M.D. LIPID PANEL Collected: 07/28/2018 Status: F Source: [facility] 11:37 AM [facility] TYPE CODE TESTS RESULT OUT OF REFERENCE UNITS RANGE LAB CHOL 100-199 mg/dL Cholesterol Normal 154 LAB TRIG 25-120 mg/dL Triglycerides High 123 LAB HDL 40-59 mg/dL HDL Normal 51 LAB LDL 10-150 mg/dL LDL Normal 79 LAB VLDL 5-40 mg/dL VLDL Normal 25 LAB CHOL/HDL 3.2-5.0 Low CHOL/HDL Ratio 3.0 Result Comment: Female Coronary Heart Disease Risk Factor (CHDRF): Average risk= 4.4 1/2 Average risk= 3.3 2 times Average risk= 7.1 Performed By: #### LIPID, CBCDIF, TSH, HEPF, CHEM8 #### Unless otherwise noted, all testing performed by [facility] [address]. [place], [place] [address] CLIA: [id number] Local Truck Driver: Alvino Chandler M.D. SERUM CREATININE AND Collected: 07/26/2018 Status: F Source: [facility] 11:00 AM [facility] REPOSITORY TYPE CODE TESTS RESULT OUT OF RANGE REFERENCE UNITS LAB L501.1100 0.55-1.02 mg/dL Normal 1.00 CREAT,SERUM Result Comment: The validity of the calculated GFR AND GFRAA in patients over 70 years has not been determined. Clinical correlation is essential. LAB L501.1110 >60 mL/min Low EST GFR 57 Result Comment: Non- GFR Calc LAB L501.1115 >60 mL/min Normal EST GFR - AA 69 Result Comment: GFR Calc LAB L501.1255 ml/min Normal Estimated CRCL 49.90 Performed By: #### L501.1105 #### [facility] [address] [place], [address] CONSULTATION Observed: 07/20/2018 Status: F Source: [place] 2:48 PM [facility] REPOSITORY [facility] Medical Records Department [address] [place] [address] Consultation 07/20/18 1348 MR#: [id number] Acct: [id number] Name: ARCADIO ROTH Rep #: [id number] : 1940 77 From: Wayne Garcia DO PCP: OUT OF TOWN DOCTOR Status: REG RCR Y Location: [facility] Date of Service: 07/20/18 Referring Provider: Sharad Lopez MD Diagnosis: Arcadio Roth is a 77-year-old female who was previously diagnosed with non-Hodgkin's lymphoma treated with surgery, chemotherapy, and radiation therapy (2001) then again with chemotherapy for lymphoma recurrence (2011). She was then diagnosed with a basal cell carcinoma of the right cheek which was resected (12/09/16) and then in March 2018 she developed a firm mass in the previously resected area and she underwent a radical resection of the facial skin on the right measuring 6 x 4.5 cm, right parotidectomy with facial nerve dissection and preservation in a right submental eyelid flap with complex facial closure, mastoid obliteration, and right harsh auriculectomy (06/20/18) with pathology revealing high-grade squamous cell carcinoma. History of Present Illness: 2001: Patient had a tonsillectomy was diagnosed with non-Hodgkin's lymphoma. 05/08/2002: Patient completed 8 cycles of chemotherapy for large cell lymphoma : Patient received adjuvant radiation therapy which included 4140 cGy in 23 fractions delivered to the tonsillar area and upper neck with a wedge pair technique using 3D conformal planning and a supraclavicular area was treated with a left anterior oblique field calculated to 3 cm depth. Treatment ports were then cone down to the primary tumor and right upper cervical lymph node areas with the same wedge pair technique and she received 900 centigray in 5 fractions. Examination at that time showed residual lymph nodes in the right upper neck and she received an 9 MeV electron boost consisting of 800 cGy in 2 fractions bringing the total dose to 5840 cGy in 30 fractions in 6 weeks. On August 29, 2002 she return for reevaluation in the right cervical mass was still palpable, it was decided to add 600 cGy delivered into fractions using 9 MeV electrons bringing the total dose up to 6440 cGy in 32 fractions over a total of 52 days. 2011: Patient had a recurrence of lymphoma and was treated with chemotherapy alone 12/09/2016: Patient underwent excision of the right cheek lesion with intermediate closure due to there being an ulcerated lesion involving the right cheek. Pathology demonstrated basal cell carcinoma with negative margins, deep margin is 0.1 cm. 10/31/2017: CT neck, chest, abdomen, and pelvis with IV and oral contrast was performed. 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 No adenopathy is noted in the chest, abdomen, or pelvis. No abnormalities noted. When reviewed by radiology in March 2018 it was noted that the CT scan (10/31/17) of the neck demonstrated a 1.3 x 1.0 x 1.2 cm subcutaneous heterogeneous nodule with ill-defined margins near the external ear canal and superior portion of the parotid gland. 03/08: Patient presented with increased right-sided facial pain as well as having a preauricular mass. 04/06/2018: CT neck was performed which demonstrated a right neck subcutaneous heterogeneous nodule with ill-defined margins abutting the anterior margin of the external ear, lateral margin of the temporomandibular joint, and superior margin of the parotid gland. This lesion measures about 3 x 2.1 x 1.4 cm. When compared to the previous examination dated October 2017 this lesion has clearly increased in size. There is hypoplastic appearance to the right thyroid. Otherwise no abnormalities are noted. 05/01/2018: Biopsy of the right preauricular mass was performed and pathology demonstrated incompletely excised basal cell carcinoma with inked margins positive for involvement. 05/10/2018: Evaluated by ENT and recommended to undergo surgical resection with reconstruction. 06/20/2018: Patient underwent radical resection of the right facial skin measuring 6 x 4.5 cm, right parotidectomy with facial nerve dissection and preservation, right submental island flap, complex fascial closure measuring 20 cm, mastoid obliteration, and right harsh auriculectomy. Also completed was right sided lateral temporal bone excision with preservation of the facial nerve. Pathology demonstrated within the right facial skin excision and parotidectomy and EAC resection there was invasive poorly differentiated squamous cell carcinoma with a maximal depth of invasion of 2.6 cm with carcinoma invading cartilage. Invasive carcinoma is present at the superior medial, inferior medial, and superior lateral margins with a section from the shaved inferior lateral margin showing a focus of invasive carcinoma and deemed her permanent sections but not in the original frozen section indicating the carcinoma is likely less than 1 mm from the margin in this area. The bony and deep soft tissue margins are uninvolved. Additional medial margins were re-excised and not shown to have any malignancy, additional lateral superior margins also re-excised with no evidence of malignancy. Radiation Treatment History: : Patient received adjuvant radiation therapy which included 4140 cGy in 23 fractions delivered to the tonsillar area and upper neck with a wedge pair technique using 3D conformal planning and a supraclavicular area was treated with a left anterior oblique field calculated to 3 cm depth. Treatment ports were then cone down to the primary tumor and right upper cervical lymph node areas with the same wedge pair technique and she received 900 centigray in 5 fractions. Examination at that time showed residual lymph nodes in the right upper neck and she received an 9 MeV electron boost consisting of 800 cGy in 2 fractions bringing the total dose to 5840 cGy in 30 fractions in 6 weeks. On August 29, 2002 she return for reevaluation in the right cervical mass was still palpable, it was decided to add 600 cGy delivered into fractions using 9 MeV electrons bringing the total dose up to 6440 cGy in 32 fractions over a total of 52 days. (information taken from outside documentation of the radiation therapy given). Interval History: Patient presents for initial consultation. She reports that in March of this year she developed a firm nodule in the right preauricular area but otherwise was fairly asymptomatic. She reports that she has healed well since completing surgery and reconstruction on 06/20/2018. She has residual right facial droop and has some difficulty completely closing the right eye but she reports that this has gradually improved. She uses eyedrops and eye gel at night for ocular moisturization. She believes that in 2001 she received about 30 radiation treatments. 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 She denies having dry mouth, taste changes, difficulty swallowing, choking with swallowing. She has lost about 7-8 pounds during her recovery but reports eating a regular diet at this time without difficulty. The patient lives alone in [facility] and can completely take care of all of her activities of daily living without any difficulty. She denies having any other medical concerns and does not take medication for other medical problems. She denies having headache, vision changes, focal weakness/numbness, shortness of breath, cough, hemoptysis, chest pain, nausea/vomiting, decreased appetite or weight loss, fatigue, or pain or adenopathy anywhere else in her body. She denies having any other problems or concerns this time. Family History (Last Updated 07/20/18 @ 11:15 by Candelaria Pollock RN) Mother Breast cancer Medical History (Last Updated 07/20/18 @ 11:16 by Candelaria Pollock RN) History of shingles (Acute) Lymphoma (Acute) removal of brain tumor (Acute 11/21/97) benign removal of head and neck tumor (Acute) Surgical History (Last Updated 07/20/18 @ 11:17 by Candelaria Pollock RN) Hx of tonsillectomy (Acute) Social History - Tobacco Smoking Status Never smoker Social History - Substance Drug use: No Alcohol use: No Social History - Living Arrangements Patients Living Arrangements Alone Home Medications Medication Instructions Recorded Amlodipine [Norvasc] 5 mg PO DAILY 07/20/18 Bacitracin-Polymyxin Eye Oint OP QHS 07/20/18 Gabapentin [Neurontin] 300 mg PO DAILY 07/20/18 Allergy/AdvReac Type Severity Reaction Status Date / Time EGGS Allergy Nausea Uncoded 07/20/18 10:59 HAYFEVER Allergy Itching Uncoded 07/20/18 10:59 Health Maintenance Do you regularly see your Yes primary care physician? Have you ever had a Yes colonoscopy? Date of last colonoscopy: 11/21/12 I have reviewed the medical, surgical, and other pertinent history in details and have updated medication and allergy information in the electronic medical record. Review of Systems: A 12-point review of systems was completed and was negative except for what is noted in the HPI/Interval History and by the nurse. Height/Weight/BMI: Height: 5 ft 9 in Weight: 66.043 kg BMI: 21.4 Vital Signs Temperature 97.4 F L 07/20/18 11:05 Temperature Source Oral 07/20/18 11:05 Physical Exam: ECO KARNOFSKY SCORE: 90-100% CONSTITUTIONAL: Well-developed, well-nourished, and in no apparent distress. HEENT: Right facial droop present. No facial numbness. Weakness in right eye closing but complete closure is achieved. There is a well-healed flap involving the right preauricular and auricular region which measures approximately 6 cm x 4 cm. Partially resected external ear with the superior portion intact. There is no evidence of wound dehiscence or oozing, wound appears well-healed. Patient is edentulous. There are no lesions within the oral cavity or visualized oropharynx. Mucous membranes are moist and there is no thrush present. There is a firm nodular mass noted in the right level 2-3 lymph node region in the neck. No evidence for cervical adenopathy is appreciated. Right neck is thinned likely due to previous radiation therapy. Normal neck range of motion. No trismus. Tongue deviates slightly to the right upon exiting the mouth. Pupils are equal, round, and reactive to light and accommodation. Extraocular movements are intact. Sclerae are anicteric. CARDIAC: Regular rate and rhythm. Normal S1, S2. No murmurs, rubs, or gallops. PULMONARY/CHEST: Lungs are clear to auscultation and percussion bilaterally. No wheezes, rhonchi, or crackles noted. No increased work of breathing. ABDOMINAL: Abdomen soft, non-tender, non-distended. No hepatomegaly. Normoactive bowel sounds in all four quadrants. No guarding, rebound. BACK: Straight and aligned. No CVA tenderness. Axial skeleton non-tender to percussion. EXTREMITIES: Full range of motion in all four extremities, with normal strength equally and symmetrically. No evidence of edema. No clubbing. SKIN: Skin is warm and dry. No rashes or lesions evident. NEUROLOGICAL EXAM: Alert and oriented x 3. Cranial nerves II through XII are grossly intact. No focal neurological deficit. Speech is fluent. There is no upper or lower extremity sensory deficit or motor deficit. Muscle strength is 5/5 in all muscle groups. Gait and posture are steady. PSYCHIATRIC: Appropriate mood and affect for the clinical situation. Imaging: As per HPI Laboratory Data: No labs available for review Assessment: Arcadio Roth is a 77-year-old female who was previously diagnosed with non-Hodgkin's lymphoma treated with surgery, chemotherapy, and radiation therapy (2001) then again with chemotherapy for lymphoma recurrence (2011). She was then diagnosed with a basal cell carcinoma of the right cheek which was resected (12/09/16) and then in March 2018 she developed a firm mass in the previously resected area and she underwent a radical resection of the facial skin on the right measuring 6 x 4.5 cm, right parotidectomy with facial nerve dissection and preservation in a right submental eyelid flap with complex facial closure, mastoid obliteration, and right harsh auriculectomy (7/31/18) with pathology revealing high-grade squamous cell carcinoma. Clinically the patient is well healed from the preauricular surgical resection. Her clinical performance status is excellent and she has very few comorbidities. Plan: I did detailed discussion with the patient regarding the use of adjuvant radiation therapy for squamous cell carcinoma involving the skin. I reviewed that typically pathologic features found at the time of surgery help to guide the judicious use of this adjuvant treatment. After full review of her pathology and discussion with her surgeon I do believe that she has many high risk features and these include recurrent disease, 2.6 cm depth of invasion, cartilage and bone invasion, high-grade disease, angiolymphatic invasion, and very close margins. I do believe that this puts her at a very high risk for having a local regional recurrence of his squamous cell carcinoma. I reviewed the option of completing adjuvant radiation therapy to the areas of concern in order to reduce the risk of recurrence and improve disease-free survival. She underwent fairly extensive neck and tonsil irradiation in 2001 and does display some chronic side effects including loss of neck fat and skin thinning but otherwise does not show evidence of toxicity. I reviewed with her that because of this previous radiation therapy that any further radiation to the right face or neck could come with higher rates of toxicity. Factors in this case that could reduce this higher risk of severe reirradiation toxicity include no severe late effects from previous radiation, 16 year interval between radiation therapy courses, large resection of some possibly previous irradiated tissue and now new vascularized tissue transferred and also healing very well. I discussed the logistics of external beam radiation therapy including simulation for radiation therapy planning followed by daily treatment for approximately 6.5 weeks. The side effects of radiation therapy, including but not limited to, acute side effects in the form of skin reactions (redness or darkening or desquamation), irritation/sores in the mouth and throat causing pain while swallowing, loss of facial hair (or hair around the auricular area), hoarseness, dryness of mouth, loss of taste sensation and late side effects in the form of persistent dryness of the mouth, loss of taste sensation, fibrosis/thickening of the skin in the treated area, decrease in jaw mobility, damage to neck blood vessels, carotid blowout and possible , damage to brachial plexus, radionecrosis, dental complications (edentulous), difficulty healing after future surgery, hearing decrease and rare chance of spinal cord damage, were also explained to the patient. She was also informed that it would be very unlikely for her to have difficulty swallowing to such a degree that she would have to have a PEG tube placed for feeding. I discussed the importance of coming for all treatments without missing any doses for the efficacy of the radiation therapy. Following her discussion the patient was inclined to pursue adjuvant radiation therapy and we will plan to pursue a PET scan to ensure there is no evidence for disease spread. She will return for CT simulation on 06/25/2018 we will plan to start radiation therapy shortly thereafter. Patient was instructed to call if she has any questions or concerns in the interim. Thank you for allowing me to participate in the management and care of your patient. If I may answer any questions in the interim, please do not hesitate to contact me at any time. Wayne Garcia DO, MS [employer], Department of Radiation Oncology [facility] 07/20/18 6303 <Electronically signed by Wayne Garcia DO> Date Wayne Garcia DO Cosigner Signature (if applicable): Date CC: Sharad Lopez MD; OUT OF TOWN DOCTOR Signed TUMOR BOARD NOTE-HEAD Observed: 07/07/2018 Status: UNK Source: [facility] 10:52 AM [facility] REPOS[facility] Note: Tumor Board Note ARCADIO ROTH was presented at Head and Neck Tumor Board Conference on 07-Jul-[address] Sharad Lopez. Impression: Presented with basal cell carcinoma of preauricular area underwent surgical resection with positive margin, findings consistent with squamous cell carcinoma, T3 N0 M0. Recommendations: Radiation vs clinical trial. Disclaimer SCC tumor board recommendations represent the consensus opinion of physicians present at a weekly patient care conference. The treating [facility] physician is not always present, and many of the physicians formulating the recommendation have not personally seen or examined the patient under discussion. It is understood that the treating [facility] physician considers the expertise of the Tumor Board Recommendation in formulating his/her plan for the patient. However, in many situations, based on individualized patient considerations, a different plan is determined by the treating physician to be the optimal medical management. Electronic Signatures: Wilmer Wallace (N MGR) (Signed 07-Jul-2018 10:59) Authored: Tumor Board, Disclaimer Last Updated: 07-Jul-2018 10:59 by Wilmer Wallace (N MGR) ESTABLISHED VISIT Observed: 07/03/2018 Status: UNK Source: [place] (OTOLARYNGOLOGY) 6:24 PM [facility] REPOSITORY Chief Complaint post op DOS 06/20 History of Present Illness Ms. ARCADIO ROTH, is a 77 year old female following up today s/p radical resection of her right facial skin, measuring 6 x 4.5cm, right parotidectomy with facial nerve dissection and preservation, right submental island flap, complex facial closure measuring 20 cm, mastoid obliteration, right partial auriculectomy, right-sided lateral temporal bone excision with Dr. Kim and myself on 06/20/2018. Jonna ent states she is doing well. She is active around her yard and tolerating a diet. Her biggest complaint is the opthalmic ointment makes her vision blurry. Also notes right cheek swelling. Denies pain, drainage, fevers, and chills. Pathology report came back and had negative margins everywhere except the inferior lateral margin which could be within 1mm. History: Dx: Basal cell carcinoma right preauricular 1999: S/p tonsillectomy, received radiation for tonsillar non hodgkin's lymphoma 2 years ago preauricular basal cell carcinoma was excised (no information available regarding margins) 11/06: Right preauricular nodule/mass 1.3x1.0x1.2cm 03/08: Right sided facial pain/mass 04/06/18: CT neck with contrast [id number] heterogeneous mass with ill-defined margins, increased in size 05/01/18: Biopsy by Dr. Pedraza +BCC 06/20/18: S/p radical resection of her right facial skin, measuring 6 x 4.5cm, right parotidectomy with facial nerve dissection and preservation, right submental island flap, complex facial closure measu ring 20 cm, mastoid obliteration, right partial auriculectomy, right-sided lateral temporal bone excision with Dr. Kim and myself. Final pathology with negative but possible close margin. SH: Tob: Never ETOH: Denies Here with family member Review of Systems ENT and Constitutional systems have been reviewed and are negative for complaint except what is stated in the HPI and/or Past Medical History. all other systems have been reviewed and are negative for complaint. 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) (H90.A31) Pain, cancer (338.3) (G89.3) Sensorineural hearing loss (SNHL) of left ear with restricted hearing of right ear (389.22) (H90.A22) Past Medical History History of BPH (V13.89) (Z87.438) History of gastroesophageal reflux (GERD) (V12.79) (Z87.19) History of high cholesterol (V12.29) (Z86.39) Surgical History History of Craniotomy Excision Of Benign Cranial Bone Tumor History of Tonsillectomy Social History Caffeine use (V49.89) (Z78.9) Never a smoker No alcohol use No illicit drug use Person living alone (V60.3) (Z60.2) Retired (V61.07) (Z63.4) Allergies No Known Drug Allergies Recorded By: Tracey Kaur; 05/10/2018 1:48:36 PM Egg White Recorded By: Tracey Kaur; 05/10/2018 1:47:45 PM Current Meds TraMADol HCl - 50 MG Oral Tablet; TAKE 1 TABLET EVERY 4 TO 6 HOURS NEEDED FOR PAIN; Therapy: [id number] to (Evaluate:[id number]); Last Rx:[id number] Ordered Rx By: Kelli Kim; Dispense: 5 Days ; #:30 Tablet; Refill: 0;For: Pain, cancer; NILESH = N; Print Rx AmLODIPine Besylate 5 MG Oral Tablet; Therapy: [id number] to Recorded Dispense: 90 Days ; #:90 TABS; Refill: 0; NILESH = N; Record; Last Updated By: Tracey Kaur; 05/10/2018 1:42:29 PM Artificial Tears 0.1-0.3 % Ophthalmic Solution; Therapy: [id number] to Recorded Dispense: 0 Days ; #: Sufficient ML; Refill: 0; NILESH = N; Record; Last Updated By: Gifty Chacon; 07/03/2018 1:49:26 PM Cmijlmv-Jhbidwce-Plhefhddb-HC 1 % Ophthalmic Ointment; Therapy: 03Jul2018 to Recorded Dispense: 0 Days ; #: Sufficient GM; Refill: 0; NILESH = N; Record; Last Updated By: Gifty Chacon; 07/03/2018 1:49:26 PM Gabapentin 300 MG Oral Capsule; Therapy: 15Aug2017 to Recorded Dispense: 90 Days ; #:90 CAPS; Refill: 0; NILESH = N; Record; Last Updated By: Tracey Kaur; 05/10/2018 1:42:50 PM Gemfibrozil 600 MG Oral Tablet; Therapy: 26Jul2017 to Recorded Dispense: 90 Days ; #:180 TABS; Refill: 0; NILESH = N; Record; Last Updated By: Tracey Kaur; 05/10/2018 1:43:23 PM Omeprazole 20 MG Oral Capsule Delayed Release; Therapy: 26Jul2017 to Recorded Dispense: 90 Days ; #:90 CPDR; Refill: 0; NILESH = N; Record; Last Updated By: Tracey Kaur; 05/10/2018 1:43:35 PM Rosuvastatin Calcium 5 MG Oral Tablet; Therapy: 23Sep2017 to Recorded Dispense: 90 Days ; #:90 TABS; Refill: 0; NILESH = N; Record; Last Updated By: Tracey Kaur; 05/10/2018 1:44:09 PM Vitals Vital Signs Recorded: 17Isp2710 01:46PM Nnaokuyxqrf01.6 F Heart Rate6 Pwsisbzr511 Ctezslemj11 Height5 ft 9 in Hmwdwh216 lb BMI Qmxdhaavdx28.86 BSA Calculated1.82 Physical Exam Constitutional: General appearance: Appears stated age, well-nourished, well groomed. No acute distress. She has new onset right facial weakness compared to preop see below Communication: Normal communication without aids or christian education director, normal voice quality. No hoarseness, stridor or stertor. Psychiatric: Oriented to person, place and time. Normal mood and affect. Neurologic: Cranial nerves II-XII grossly intact and symmetric bilaterally except for her right facial nerve which is HBIII, she has complete eye closure but there is asymmetry at rest, +lagophthalmos (mild). Head and Face: Head: Atraumatic with no masses, lesions or scarring. Face: Abnormal, +asymmetry s/p right radical facial resection with partial auriculectomy and submental flap reconstruction with current FN weakness in all divisions. The submental island flap is erythem atous with good capillary refill. There is no drainage or dehiscence. All incisions intact. There is good blanching with palpation. No surrounding erythema. No seroma or hematoma. Right cheek edema is c onsistent with lymphedema and is soft to palpation. Salivary glands: S/p right parotidectomy with submental island flap reconstruction. TMJ: Normal, no trismus. Eyes: Right eye with visible asymmetry at rest, +lagophthalmos but full eye closure. No erythema or injection. No epiphora or erythema. Left conjunctiva not edematous or erythematous Ears: Submental island flap overlying right ear mildly erythematous, soft and good capillary refill. Remaining right helix intact without evidence of hematoma or necrosis. Preauricular area soft, nontender. Nose: External inspection of nose: No nasal lesions, lacerations or scars. Septum midline. No inferior turbinate hypertrophy. Patent with good air entry bilaterally. Oral Cavity/Mouth: No masses, lesions or ulcers along the lips, gingival or buccal mucosa. Floor of the mouth is soft without edema or masses. Teeth in fair condition. No masses, lesions or ulcers along the tongue. Oral cavity and oropharynx mucosa moist. Hard and soft palate intact and symmetric with no masses or lesions. Posterior oropharynx patent. Palate, posterior pharyngeal bee and tonsils nor mal, symmetric with no masses, lesions or ulcers. Neck: Right neck incision clean, dry and intact. Neck has right sided lymphedema collecting in the right cheek and jowl. Soft without fluctuance or hematoma. Submental incision CDI. Lymphatic: No palpable cervical lymphadenopathy, no submandibular lymphadenopathy, no supraclavicular lymphadenopathy. Cardiovascular: Examination of peripheral vascular system shows no clubbing or cyanosis. Respiratory: No respiratory distress increased work of breathing. Inspection of the chest with symmetric chest expansion and normal respiratory effort. Skin: No rashes in the head or neck Results/Data I personally reviewed available pathology with my findings as documented above in the HPI. Provider Impressions Ms. ARCADIO ROTH, is s/p radical resection of her right facial skin, measuring 6 x 4.5cm, right parotidectomy with facial nerve dissection and preservation, right submental island flap, complex facial c losure measuring 20 cm, mastoid obliteration. right partial auriculectomy, right- sided lateral temporal bone excision with Dr. Kim and myself on 06/20/2018 for basal cell carcinoma. We are planning to discuss the patient at tumor board this week to plan further treatment, which may include radiation. She does have a history of radiation to the tonsil for lymphoma (1999). Patient lives in [place] so we will look into potentially getting radiation done in [place]. I also will have to review the pathology with the pathologist to getter a better idea of what was seen at the lateral inferior margin. R ecommend the patient continue to use the eye drops in her right eye as well as the opthalmic ointment at night. Reassurance provided regarding return of facial nerve function and timeline for this. We d iscussed that all of the branches of the facial nerve were intact after surgery and the function of the face will return with time. Education provided regarding incision care including massage, moisturi zation and Vit E as well as the need for aggressive sunblock/sun protection for the first year. Follow up in 3-4 weeks, sooner if needed. Patient Discussion/Summary Dr. Lopez evaluated you today. She did not see anything concerning today. Your care plan is outlined below: -- Follow up with Dr. Lopez in 1 month. This appointment was scheduled at the end of your visit today. If you need to reschedule, please call the office at [phone]. Please keep in mind that last m inute cancellations often result in delayed follow-up appointments. Dr. Lopez makes every effort to run on time for your appointments. Therefore, if you are more than 20 minutes late for your appointment, unrelated to a scan or another appointment such as chemotherapy or radiation, your appointment will need to be rescheduled to another day. We appreciate your understanding. End of Encounter Meds AmLODIPine Besylate 5 MG Oral Tablet; Therapy: 20Sep2017 to Recorded Artificial Tears 0.1-0.3 % Ophthalmic Solution; Therapy: [id number] to Recorded Iwmdagk-Yrkasnue-Gimpspqde-HC 1 % Ophthalmic Ointment; Therapy: 67Nww0788 to Recorded Gabapentin 300 MG Oral Capsule; Therapy: 58Vgf1602 to Recorded Gemfibrozil 600 MG Oral Tablet; Therapy: 26Jul2017 to Recorded Omeprazole 20 MG Oral Capsule Delayed Release; Therapy: 26Jul2017 to Recorded Rosuvastatin Calcium 5 MG Oral Tablet; Therapy: 23Sep2017 to Recorded TraMADol HCl - 50 MG Oral Tablet; TAKE 1 TABLET EVERY 4 TO 6 HOURS NEEDED FOR PAIN; Therapy: 98Bee3608 to (Evaluate:46Epc0647); Last Rx:[id number] Ordered Signatures Electronically signed by : Sharad Lopez MD; Jul 03 2018 6:24PM EST (Author) Reviewed by : Kelli Kim MD; Jul 10 2018 1:01PM EST DISCHARGE SUMMARY Observed: 06/24/2018 Status: COMPLETED Source: [place] 7:18 [facility] Send Summary: Discharge Summary Providers: Provider RoleProvider Name ? ReferringExtenIleana ? [facility] HospitalArcadio seymour ? 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, EAC and parotid Dysphagia Procedures: Date: 20-Jun-2018 15:01:00 Procedure Name: right lateral temporal bone resection Date: 20-Jun-2018 18:20:00 Procedure Name: Radical resection of right facial malignancy/skin Right parotidectomy with facial nerve dissection and preservation Submental island flap Right mastoid obliteration Complex right facial closure 15cm Complex right ear reconstruction 7.5cm Condition at Discharge: Satisfactory Disposition at Discharge: .Home Hospital Course: 77 yr old female with Basal Cell Carcinoma of the scalp and neck with periauricular nodule s/p Wide Local Excision, Right Parotidectomy with facial nerve dissection, Right Submandibular flap, sleeve resection of R EAC with Right mastoidectomy on June 20, [address] Lopez and Dr[address] Kim. Please see operative report for full details. Patient tolerated the procedure well and recovered briefly in PACU before being transitioned to regular nursing floor. Post-op course was uncomplicated. Nutrition was consulted to give recommendations for supplements to help with healing. Diet was advanced as tolerated. IV medication transitioned to oral as diet advanced. The drains were monitored and once the output was less than 30mls in a 24hr time frame; they were removed accordingly. On the day of discharge, the pt was tolerating a diet, pain was controlled on PO pain medication, and they were ambulating and voiding spontaneously. They were discharged home in stable condition with instructions to follow up as outpatient. Discharge Information: and Continuing Care: Discharge Instructions: Activity: activity as tolerated. May shower.. May not return to school/work until follow-up visit with. Dr. Lopez May not drive while taking narcotics. No pushing, pulling, or lifting objects greater than 10 pounds. Weight-bearing Instructions: full weight bearing. Slowly increase your activity each day. No strenuous or vigorous exercising until cleared by your surgeon. Nutrition/Diet: regular Additional Orders: Additional Instructions: Call the office for signs of infection: sustained elevated temperature greater than 101 degrees, increased incisional pain, increased redness or swelling, tenderness to touch, or drainage along incision. Also call the office for persistent nausea or vomiting. Infectious Disease: PPD Status: not given MRSA: no VRE: no C. Diff: no Other Resistant Organism: no Isolation Type: none Follow Up Appointments: Follow-Up Appointment 01: Physician/Dept/Service: Dr. Sharad Lopez Reason for Referral: Flap Follow up Scheduled Date/Time: 03-Jul-2018 13:45 Location: [address] [address] with questions Follow-Up Appointment 02: Physician/Dept/Service: Dr. Kelli Kim Reason for Referral: Hospital Follow up Scheduled Date/Time: 31-Jul-2018 13:30 Location: [facility] [address] [facility] [place] [address] Discharge Medications: Home Medication amLODIPine 5 mg oral tablet - 1 tab(s) orally once a day gabapentin 300 mg oral tablet - orally once a day (at bedtime) gemfibrozil - 300 milligram(s) orally once a day omeprazole 20 mg oral delayed release tablet - 1 tab(s) orally once a day rosuvastatin 5 mg oral tablet - 1 tab(s) orally once a day (at bedtime) bacitracin-polymyxin B 500 units-10,000 units/g ophthalmic ointment - 0.5 inch(es) in the right eye 2 times a day Artificial Tears ophthalmic solution - 1 drop(s) in the right eye every 4 hours Colace 100 mg oral capsule - 1 cap(s) orally 2 times a day PRN Medication traMADol 50 mg oral tablet - 1 tab(s) orally every 6 hours x 7 days, As Needed -Pain acetaminophen 325 mg oral tablet - 2 tab(s) orally every 6 hours, As needed, Pain - Mild (1-3) Lab Results - Pending: Surgical Pathology Drawn at 20-Jun-2018 00:00:00 Radiology Results - Pending: None Signature/Cosignature/Attestation: Attending AttestationI saw and evaluated the patient. I personally obtained the chinchilla and critical portions of the history and physical exam or was physically present for chinchilla and critical portions performed by the resident/fellow. I reviewed the resident/fellow?s documentation and discussed the patient with the resident/fellow. I agree with the resident/fellow?s medical decision making as documented in the resident?s note. I personally evaluated the patient (as noted in the above attestation) on 24-Jun-2018 Electronic Signatures: Jessica DE LEON, Sharad Kiser (Otolaryngology) () (Signed 24-Jun-2018 13:12) Authored: Summary Content, Ongoing Care, Signature/Cosignature/Attestation Co-Signer: Send Summary, Summary Content, Ongoing Care, Signature/Cosignature/Attestation Jasvir Kohler (Resident)) (Signed 24-Jun-2018 07:20) Authored: Send Summary, Summary Content, Ongoing Care, Signature/Cosignature/Attestation Last Updated: 24-Jun-2018 13:12 by Madhu Lopez MDle M (Otolaryngology) () DAILY PROGRESS Observed: 06/24/2018 Status: COMPLETED Source: [facility]03 [facility]IT[facility] Service: ENT Subjective Data: ARCADIO ROTH is a 77 year old Female who is Hospital Day # 4 and POD #3 for Rigth radical resection skin and parotid;Facial nerve dissection and preservations ;Submental island flap;Right mastoid obliteration. Additional Information: S: No acute events overnight. No concerns from patient or nursing. O: AFVSS Gen - NAD, resting comfortably in bed Ears - External ears normal Nose - Anterior nares clear, no rhinorrhea OC/OP - No masses or lesions appreciated, normal salivary pool, OP without drainage Neck - No palpable LAD, incision c/d/i, drain in place with serosanguinous drainage and holding suction (stripped), Submental flap has good capillary refill, warm to touch Neuro - CN VII able to close eyes completely, lower lip symmetric at rest asymmetric with smile Ext - SCDs in place A/P: 77 yo female s/p wide local excision, R parotidectomy with facial nerve dissection and preservation, R submental island flap, sleeve resection of R EAC with R mastoidectomy with Dr. Lainez and Dr. Kim on 06/20. 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 - ID: Ancef x 4 days - Eyes: artificial tears and bacitracin/polymyxin ophthalmic to R eye - Drains: monitor, stripping per protocol, - Bacitracin to incisions TID until POD3 then switch to petroleum jelly/vaseline - Embolic PPx: SQH, SCDs while in bed - Dispo: [place] today [place] [id number] Objective Data: Objective Information: ---- Intake and Output ----- Mn/Dy/Year TimeIntakeOutputNet Jun 23, 2018 10:00 [id number] Jun 23, 2018 2:00 [id number] Jun 23, 2018 6:00 [id number] The Intake and Output Totals for the last 24 hours are: IntakeOuttsaile health centerNet [id number] Electronic Signatures: Jimmy Cat (Resident)) (Signed 24-Jun-2018 07:50) Authored: Subjective Data Jasvir Kohler (Resident)) (Signed 23-Jun-2018 22:05) Authored: Service, Subjective Data, Objective Data, Signature/Cosignature/Attestation Chavez Lainez) (Signed 27-Jun-2018 14:52) Authored: Signature/Cosignature/Attestation Co-Signer: Service, Subjective Data, Objective Data, Signature/Cosignature/Attestation Last Updated: 27-Jun-2018 14:52 by Chavez Lainez) CBC Collected: 06/24/2018 Status: F Source: [place] 4:26 [facility] REPOSITORY TYPE CODE TESTS RESULT OUT OF REFERENCE UNITS RANGE LAB WBCR(LOINC 4.4 - 11.3 x10E9/L ) WBC 5.0 LAB NRBC(LOINC 0.0-0.0 /100 WBC ) NUCLEATED RBC 0.0 LAB RBCCT(LOIN 4.00 - 5.20 x10E12/L C) Low RBC 3.87 LAB HGB(LOINC) 12.0 - 16.0 g/dL Low HGB 11.5 LAB HCT(LOINC) 36.0 - 46.0 % Low HCT 34.4 LAB MCV(LOINC) 80 - 100 fL MCV 89 LAB MCHC2(LOIN 32.0 - 36.0 g/dL C) MCHC 33.4 LAB PLTCT(LOIN 150 - 450 x10E9/L C) Low PLT 102 LAB RDWCV(LOIN 11.5 - 14.5 % C) RDW-CV 14.2 Performed By: #### CBC #### [facility] [address] [place] [address] MAGNESIUM Collected: 06/24/2018 Status: F Source: [place] 4:26 [facility] REPOSITORY TYPE CODE TESTS RESULT OUT OF REFERENCE UNITS RANGE LAB MG(LOINC) 1.60 - 2.40 mg/dL MAGNESIUM 2.33 Performed By: #### MG #### [facility] [address] [place] [address] RENAL FUNCTION PANEL Collected: 06/24/2018 Status: F Source: [place] 4:26 [facility] TYPE CODE TESTS RESULT OUT OF REFERENCE UNITS RANGE LAB GLU(LOINC) 74 - 99 mg/dL GLUCOSE High 107 LAB SOD(LOINC) 136 - 145 mmol/L SODIUM 140 LAB K(LOINC) 3.5 - 5.3 mmol/L POTASSIUM 3.8 LAB CHLOR(LOIN 98 - 107 mmol/L C) CHLORIDE 103 LAB BIC(LOINC) 21 - 32 mmol/L BICARBONATE 28 LAB ANGAP(LOIN 10 - 20 mmol/L C) ANION GAP 13 LAB UREA(LOINC 6 - 23 mg/dL ) UREA NITROGEN 23 LAB CREA(LOINC 0.50 - 1.05 mg/dL ) CREATININE 0.86 LAB GFRFN(LOIN >60 mL/min/1.7 C) 3m2 GFR-NON AM. >60 LAB GFRAA(LOIN >60 mL/min/1.7 C) 3m2 GFR- AM. >60 Result Comment: CALCULATIONS OF ESTIMATED GFR ARE PERFORMED USING THE MDRD STUDY EQUATION FOR THE IDMS-TRACEABLE CREATININE METHODS. CLIN CHEM 2007;53:766-72 LAB CA(LOINC) 8.6 - 10.6 mg/dL CALCIUM Low 8.2 LAB PHOS(LOINC) 2.5 - 4.9 mg/dL PHOSPHORUS Low 2.2 Result Comment: The performance characteristics of phosphorus testing in heparinized plasma have been validated by the individual laboratory site where testing is performed. Testing on heparinized plasma is not approved by the FDA; however, such approval is not necessary. LAB ALB(LOINC) 3.4 - 5.0 g/dL ALBUMIN 3.4 Performed By: #### RENAL #### [facility] [address] [place] [address] DISCHARGE PROFILE2 Observed: 06/23/2018 Status: UNK Source: [place] 9:17 [facility]IT[facility] Discharge Orders: Anticipated Discharge Date: ? Anticipated Discharge [id number] ? Anticipated Discharge Time11:00 Problem List: Admitting Dx: ? Basal cell carcinoma of neck: Catalog Name: Basal cell carcinoma of skin of scalp and neck Additional Dx: ? Primary parotid gland malignancy: Catalog Name: Malignant neoplasm of parotid gland Significant Events: Surgical Procedure: Clinical Events This Visit, 20-Jun-2018, Rigth radical resection skin and parotid;Facial nerve dissection and preservations ;Submental island flap;Right mastoid obliteration Surgical Procedure: Clinical Events This Visit, 20-Jun-2018, right lateral temporal bone resection Hospital Providers: Provider RoleProvider Name ? AttendingSharad Lopez MD (Otolaryngology) DNAR: ? DNAR Statusnone Activity: activity as tolerated. May shower. May not return to school/work until follow-up visit with Dr. Lopez Instructions: May not drive while taking narcotics. No pushing, pulling, or lifting objects greater than 10 pounds. Weight-bearing Instructions: full weight bearing. Other activity instructions: Slowly increase your activity each day. No strenuous or vigorous exercising until cleared by your surgeon. Diet: ? Dietregular Additional Orders: ? Additional Instructions Call the office for signs of infection: sustained elevated temperature greater than 101 degrees, increased incisional pain, increased redness or swelling, tenderness to touch, or drainage along incision. Also call the office for persistent nausea or vomiting. Call Provider If (Homegoing Patients): Breathing faster than normal. Breathing harder than normal or having retractions. Chills. 3 or more loose, watery bowel movements in 24 hours (diarrhea). Any new concerning symptoms. Otolaryngology: Incision Care: Facial/Neck Incision Care: Cleanse all facial/neck incisions twice daily with baby shampoo or mild soap and water. Apply petroleum jelly/vaseline to incision line twice daily until incision has healed. Hospital Course (Home Care/Gold Form): Hospital Course: ? Hospital Course: include significant abnormal lab values 77 yr old female with Basal Cell Carcinoma of the scalp and neck with periauricular nodule s/p Wide Local Excision, Right Parotidectomy with facial nerve dissection, Right Submandibular flap, sleeve resection of R EAC with Right mastoidectomy on June 20, [address] Lopez and Dr[address] Kim. Please see operative report for full details. Patient tolerated the procedure well and recovered briefly in PACU before being transitioned to regular nursing floor. Post-op course was uncomplicated. Nutrition was consulted to give recommendations for supplements to help with healing. Diet was advanced as tolerated. IV medication transitioned to oral as diet advanced. The drains were monitored and once the output was less than 30mls in a 24hr time frame; they were removed accordingly. On the day of discharge, the pt was tolerating a diet, pain was controlled on PO pain medication, and they were ambulating and voiding spontaneously. They were discharged home in stable condition with instructions to follow up as outpatient. Infectious Disease: ? PPD Statusnot given ? MRSAno ? VREno ? C. Diffno ? Other Resistant Organismno ? Isolation Typenone Provider FINAL REVIEW of Orders: Final Review: ? Final Review of Medication Reconciliation and Orders Completedby CONVOLUTE TUBE WINDER ? Reviewing ProviderKARLIE Pickett at 23-Jun-2018 16:51:59 Appointments: Follow-Up Appointment 01: ? Physician/Dept/ServiceDrLula Lopez ? Reason for ReferralFlap Follow up ? Scheduled Date/[id number] 13:45 ? [address] [address] ? Phone [phone] with questions ? CommentsPlease arrive 10-15 minutes early, bring photo ID, insurance information, and current list of medications. If unable to keep this appointment, please call to cancel at least 24 hours prior to appointment. Follow-Up Appointment 02: ? Physician/Dept/Service. Kelli Kim ? Reason for ReferralHospital Follow up ? Scheduled Date/[id number] 13:30 ? [place] [address] [address] [facility] [place] [address] ? Phone [phone] ? CommentsPlease arrive 10-15 minutes early, bring photo ID, insurance information, and current list of medications. If unable to keep this appointment, please call to cancel at least 24 hours prior to appointment. Electronic Signatures: Cherelle Wilson (MIKE-NUCLEAR PLANT EQUIPMENT OPERATOR) (Signed 23-Jun-2018 16:51) Authored: Discharge Orders, Otolaryngology, Hospital Course (Home Care/Gold Form), Provider FINAL REVIEW of Orders, Appointments, Gold Form - Gear Shaper Set Up Operator Summary Last Updated: 23-Jun-2018 16:51 by Walker, Cherelle M. (CONVOLUTE TUBE WINDER-NUCLEAR PLANT EQUIPMENT OPERATOR) CBC Collected: 06/23/2018 Status: F Source: [place] 6:14 [facility] REPOSITORY TYPE CODE TESTS RESULT OUT OF REFERENCE UNITS RANGE LAB WBCR(LOINC 4.4 - 11.3 x10E9/L ) WBC 5.3 LAB NRBC(LOINC 0.0-0.0 /100 WBC ) NUCLEATED RBC 0.0 LAB RBCCT(LOIN 4.00 - 5.20 x10E12/L C) RBC 4.03 LAB HGB(LOINC) 12.0 - 16.0 g/dL HGB 12.0 LAB HCT(LOINC) 36.0 - 46.0 % Low HCT 35.6 LAB MCV(LOINC) 80 - 100 fL MCV 88 LAB MCHC2(LOIN 32.0 - 36.0 g/dL C) MCHC 33.7 LAB PLTCT(LOIN 150 - 450 x10E9/L C) Low PLT 97 LAB RDWCV(LOIN 11.5 - 14.5 % C) RDW-CV 14.1 Performed By: #### CBC #### [facility] [address] [place] [address] MAGNESIUM Collected: 06/23/2018 Status: F Source: [place] 6:14 [facility] REPOSITORY TYPE CODE TESTS RESULT OUT OF REFERENCE UNITS RANGE LAB MG(LOINC) 1.60 - 2.40 mg/dL MAGNESIUM 2.08 Performed By: #### MG #### [facility] [address] [place] [address] RENAL FUNCTION PANEL Collected: 06/23/2018 Status: F Source: [place] 6:14 [facility] REPOSITORY TYPE CODE TESTS RESULT OUT OF REFERENCE UNITS RANGE LAB GLU(LOINC) 74 - 99 mg/dL GLUCOSE High 117 LAB SOD(LOINC) 136 - 145 mmol/L SODIUM 140 LAB K(LOINC) 3.5 - 5.3 mmol/L POTASSIUM 3.8 LAB CHLOR(LOIN 98 - 107 mmol/L C) CHLORIDE 104 LAB BIC(LOINC) 21 - 32 mmol/L BICARBONATE 26 LAB ANGAP(LOIN 10 - 20 mmol/L C) ANION GAP 14 LAB UREA(LOINC 6 - 23 mg/dL ) UREA NITROGEN 18 LAB CREA(LOINC 0.50 - 1.05 mg/dL ) CREATININE 0.75 LAB GFRFN(LOIN >60 mL/min/1.7 C) 3m2 GFR-NON AM. >60 LAB GFRAA(LOIN >60 mL/min/1.7 C) 3m2 GFR- AM. >60 Result Comment: CALCULATIONS OF ESTIMATED GFR ARE PERFORMED USING THE MDRD STUDY EQUATION FOR THE IDMS-TRACEABLE CREATININE METHODS. CLIN CHEM 2007;53:766-72 LAB CA(LOINC) 8.6 - 10.6 mg/dL CALCIUM 8.8 LAB PHOS(LOINC) 2.5 - 4.9 mg/dL PHOSPHORUS Low 2.1 Result Comment: The performance characteristics of phosphorus testing in heparinized plasma have been validated by the individual laboratory site where testing is performed. Testing on heparinized plasma is not approved by the FDA; however, such approval is not necessary. LAB ALB(LOINC) 3.4 - 5.0 g/dL ALBUMIN 3.6 Performed By: #### RENAL #### [facility] [address] [place] [address] DAILY PROGRESS Observed: Status: COMPLETED Source: [facility] NOTE-OTOLARYNGOLOGY 06/23/2018 5:06 AM [facility]ITALS REPOSITORY Service: Otolaryngology Subjective Data: ARCADIO ROTH is a 77 year old Female who is Hospital Day # 4 and POD #3 for Rigth radical resection skin and parotid;Facial nerve dissection and preservations ;Submental island flap;Right mastoid obliteration. Additional Information: S: No acute events overnight. No concerns from patient or nursing. O: AFVSS Gen - NAD, resting comfortably in bed Ears - External ears normal Nose - Anterior nares clear, no rhinorrhea OC/OP - No masses or lesions appreciated, normal salivary pool, OP without drainage Neck - No palpable LAD, incision c/d/i, drain in place with serosanguinous drainage and holding suction (stripped), Submental flap has good capillary refill, warm to touch Neuro - CN VII able to close eyes completely, lower lip symmetric at rest asymmetric with smile Ext - SCDs in place A/P: 77 yo female s/p wide local excision, R parotidectomy with facial nerve dissection and preservation, R submental island flap, sleeve resection of R EAC with R mastoidectomy with Dr. Lainez and Dr. Kim on 06/20. 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 - ID: Ancef x 4 days - Eyes: artificial tears and bacitracin/polymyxin ophthalmic to R eye - Drains: monitor, stripping per protocol, R neck drain pulled at bedside today - Bacitracin to incisions TID until POD3 then switch to petroleum jelly/vaseline - Embolic PPx: SQH, SCDs while in bed - Dispo: 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 ENT [id number] Objective Data: Objective Information: ---- Intake and Output ----- Mn/Dy/[facility] Jun 21, 2018 10:00 [id number] Jun 21, 2018 2:00 [id number] Jun 21, 2018 6:00 [id number] The Intake and Output Totals for the last 24 hours are: IntakeOutputNet [id number] ---- Intake and Output ----- [facility] Jun 23, 2018 6:00 [id number] Jun 22, 2018 10:00 [id number] Jun 22, 2018 2:00 [id number] The Intake and Output Totals for the last 24 hours are: [facility] [id number] Signature/Cosignature/Attestation: Attending AttestationI saw and evaluated the patient. I personally obtained the chinchilla and critical portions of the history and physical exam or was physically present for chinchilla and critical portions performed by the resident/fellow. I reviewed the resident/fellow?s documentation and discussed the patient with the resident/fellow. I agree with the resident/fellow?s medical decision making as documented in the resident?s note. I personally evaluated the patient (as noted in the above attestation) on 23-Jun-2018 Electronic Signatures: Shikha Marie ( (Resident)) (Signed 23-Jun-2018 05:07) Authored: Service, Subjective Data, Objective Data Kirit Amaral) (Signed 23-Jun-2018 18:53) Authored: Signature/Cosignature/Attestation Co-Signer: Subjective Data, Objective Data, Signature/Cosignature/Attestation Andrew Noel (Resident)) (Signed 23-Jun-2018 15:04) Authored: Subjective Data, Objective Data, Signature/Cosignature/Attestation Last Updated: 23-Jun-2018 18:53 by Kirit Amaral) NUTRITION THERAPY-EDUCATION Observed: 06/22/2018 Status: UNK Source: [place] 11:03 AM [facility] REPOSITORY Assessment Subjective/Objective: Note Type: Education Note Authored by: Registered Dietitian Tractor Trailer Operator Pager Number: [phone] Nutrition Note: The patient is a 77 year old Female who is Hospital Day # 3 and POD #2 for Rigth radical resection skin and parotid;Facial nerve dissection and preservations ;Submental island flap;Right mastoid obliteration. Met with pt at bedside this AM to discuss tips to help manage PO intake for home-going in setting of chewing difficulties s/p procedure. Soft diet edu provided. Diet Education: Nutrition Education: Provided pt with soft foods nutrition therapy handout, soft and moist high protein menu ideas, and high kcal high pro beverage recipes Nutrition Education was Provided for the Following Diet: Suggested pt to continue to choose soft foods while she is having difficulty chewing. Recommended eating 6 small meals daily and to choose nutrient dense foods. Suggested adding extra butter/oil/margarine to meals to increase calorie content. Reviewed high kcal high pro beverage recipes. Education Provided to: patient Understanding of Diet: good, able to select meals appropriately, patient/family voice understanding Anticipated Compliance: good Electronic Signatures: Miladis Powers (ERNA, BAILEE) (Signed 22-Jun-2018 11:06) Authored: Assessment Subjective/Objective, Diet Education Last Updated: 22-Jun-2018 11:06 by Miladis Powers (ERNA, BAILEE) CBC Collected: 06/22/2018 Status: F Source: [place] 4:50 AM [facility] REPOSITORY TYPE CODE TESTS RESULT OUT OF REFERENCE UNITS RANGE LAB WBCR(LOINC 4.4 - 11.3 x10E9/L ) WBC 5.9 LAB NRBC(LOINC 0.0-0.0 /100 WBC ) NUCLEATED RBC 0.0 LAB RBCCT(LOIN 4.00 - 5.20 x10E12/L C) Low RBC 3.77 LAB HGB(LOINC) 12.0 - 16.0 g/dL Low HGB 11.4 LAB HCT(LOINC) 36.0 - 46.0 % Low HCT 34.0 LAB MCV(LOINC) 80 - 100 fL MCV 90 LAB MCHC2(LOIN 32.0 - 36.0 g/dL C) MCHC 33.5 LAB PLTCT(LOIN 150 - 450 x10E9/L C) Low PLT 85 LAB RDWCV(LOIN 11.5 - 14.5 % C) RDW-CV 14.4 Performed By: #### CBC #### [facility] [id number] [place] [address] MAGNESIUM Collected: 06/22/2018 Status: F Source: [place] 4:50 [facility] REPOSITORY TYPE CODE TESTS RESULT OUT OF REFERENCE UNITS RANGE LAB MG(LOINC) 1.60 - 2.40 mg/dL MAGNESIUM 1.91 Performed By: #### MG #### [facility] [address] [place] [address] RENAL FUNCTION PANEL Collected: 06/22/2018 Status: F Source: [place] 4:50 [facility] REPOSITORY TYPE CODE TESTS RESULT OUT OF REFERENCE UNITS RANGE LAB GLU(LOINC) 74 - 99 mg/dL GLUCOSE High 115 LAB SOD(LOINC) 136 - 145 mmol/L SODIUM 139 LAB K(LOINC) 3.5 - 5.3 mmol/L POTASSIUM 3.9 LAB CHLOR(LOIN 98 - 107 mmol/L C) CHLORIDE 104 LAB BIC(LOINC) 21 - 32 mmol/L BICARBONATE 28 LAB ANGAP(LOIN 10 - 20 mmol/L C) ANION GAP 11 LAB UREA(LOINC 6 - 23 mg/dL ) UREA NITROGEN 17 LAB CREA(LOINC 0.50 - 1.05 mg/dL ) CREATININE 0.81 LAB GFRFN(LOIN >60 mL/min/1.7 C) 3m2 GFR-NON AM. >60 LAB GFRAA(LOIN >60 mL/min/1.7 C) 3m2 GFR- AM. >60 Result Comment: CALCULATIONS OF ESTIMATED GFR ARE PERFORMED USING THE MDRD STUDY EQUATION FOR THE IDMS-TRACEABLE CREATININE METHODS. CLIN CHEM 2007;53:766-72 LAB CA(LOINC) 8.6 - 10.6 mg/dL CALCIUM Low 8.4 LAB PHOS(LOINC) 2.5 - 4.9 mg/dL PHOSPHORUS Low 2.3 Result Comment: The performance characteristics of phosphorus testing in heparinized plasma have been validated by the individual laboratory site where testing is performed. Testing on heparinized plasma is not approved by the FDA; however, such approval is not necessary. LAB ALB(LOINC) 3.4 - 5.0 g/dL ALBUMIN 3.4 Performed By: #### RENAL #### [facility] [address] [place] [address] DAILY PROGRESS Observed: Status: COMPLETED Source: [facility]OTOLARYNGOLOGY 06/22/2018 4:49 AM [facility] REPOSITORY Service: Otolaryngology Subjective Data: ARCADIO ROTH is a 77 year old Female who is Hospital Day # 3 and POD #2 for Rigth radical resection skin and parotid;Facial nerve dissection and preservations ;Submental island flap;Right mastoid obliteration. Additional Information: S: No acute events overnight. No concerns from patient or nursing. O: AFVSS Gen - NAD, resting comfortably in bed Ears - External ears normal Nose - Anterior nares clear, no rhinorrhea OC/OP - No masses or lesions appreciated, normal salivary pool, OP without drainage Neck - No palpable LAD, incision c/d/i, drain in place with serosanguinous drainage and holding suction (stripped) Neuro - CN VII able to close eyes completely, lower lip symmetric at rest asymmetric with smile Ext - SCDs in place A/P: 77 yo female s/p wide local excision, R parotidectomy with facial nerve dissection and preservation, R submental island flap, sleeve resection of R EAC with R mastoidectomy with Dr. Lainez and Dr. Kim on 06/20. 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 HTN controlled GERD HLT History of tonsillar non-hodgkin lymphoma Plan: - Neuro: Tylenol and oxycodone for pain management, cont home gabapentin - Resp: wean O2 as able - CV: cont home amlodipine, atorvastatin, gemfibrozil - GI: advance diet as tolerated, boost pudding supplements - FEN: NS @75- HLIV when adequate PO, nutrition consult for possible supplementation - ID: Ancef x 4 days - Eyes: artificial tears and lacrilube to R eye - Wheeler pulled, void trial today - Drains: monitor, stripping per protocol - Bacitracin to incisions TID until POD3 then switch to petroleum jelly/vaseline - Embolic PPx: SQH, SCDs while in bed - Dispo: 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 I personally obtained the chinchilla and critical portions of the history and physical exam or was physically present for chinchilla and critical portions performed by the resident/fellow. I reviewed the resident/fellow?s documentation and discussed the patient with the resident/fellow. I agree with the resident/fellow?s medical decision making as documented in the resident?s note. I personally evaluated the patient (as noted in the above attestation) on 22-Jun-2018 Electronic Signatures: Shikha Marie ( (Resident)) (Signed 22-Jun-2018 04:51) Authored: Service, Subjective Data, Objective Data Elliot Valdivia (Resident)) (Signed 22-Jun-2018 14:55) Entered: Signature/Cosignature/Attestation Authored: Subjective Data, Objective Data, Signature/Cosignature/Attestation Kirit Amaral) (Signed 22-Jun-2018 16:28) Authored: Signature/Cosignature/Attestation Co-Signer: Subjective Data, Objective Data, Signature/Cosignature/Attestation Last Updated: 22-Jun-2018 16:28 by Kirit Amaral) DAILY PROGRESS Observed: Status: COMPLETED Source: [facility] NOTE-OTOLARYNGOLOGY 06/21/2018 12:29 PM [facility]OSPITALS REPOSITORY Service: Otolaryngology Subjective Data: ARCADIO ROTH is a 77 year old Female who is Hospital Day # 2 and POD #1 for Rigth radical resection skin and parotid;Facial nerve dissection and preservations ;Submental island flap;Right mastoid obliteration. Additional Information: S: No acute events overnight. She has been doing well and pain is controlled this morning. O: AFVSS Gen - NAD, resting comfortably in bed Ears - External ears normal Nose - Anterior nares clear, no rhinorrhea OC/OP - No masses or lesions appreciated, normal salivary pool, OP without drainage Neck - incision c/d/i, drain in place with serosanguinous drainage and holding suction (stripped) Neuro - CN VII able to close eyes completely on the right, right face 4/6 and left 5/6 Ext - SCDs in place A/P: 77 yo female s/p wide local excision, R parotidectomy with facial nerve dissection and preservation, R submental island flap, sleeve resection of R EAC with R mastoidectomy with Dr. Lopez and Dr. iKm on 06/20. 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 Anita Bryant MD, PGY-5 Department of Otolaryngology: Head & Neck Surgery ENT Adult Pager: [phone] ENT Peds Pager: [phone] Personal Pager: [phone] Objective Data: Objective Information: ---- Intake and Output ----- Mn/Dy/Year TimeIntakeOutputNet Jun 21, 2018 6:00 [id number] Jun 20, 2018 10:00 [id number] The Intake and Output Totals for the last 24 hours are: IntakeOutputNet [id number] T PRBPSpO2 [id number]/6797% Date/Time06/21 11: 11: 11: 11: 11:56 Range(36.2C - 37.2C ) (69 - 78 ) (16 - 18 ) (125 - 151 )/ (62 - 79 ) (94% - 100% ) Highest temp of 37.2 C was recorded at 06/21 4:09 Signature/Cosignature/Attestation: Attending AttestationI saw and evaluated the patient. I personally obtained the chinchilla and critical portions of the history and physical exam or was physically present for chinchilla and critical portions performed by the resident/fellow. I reviewed the resident/fellow?s documentation and discussed the patient with the resident/fellow. I agree with the resident/fellow?s medical decision making as documented in the resident?s note. I personally evaluated the patient (as noted in the above attestation) on 21-Jun-2018 Electronic Signatures: Anita Bryant (Resident)) (Signed 21-Jun-2018 12:47) Authored: Service, Subjective Data, Objective Data, Signature/Cosignature/Attestation Kelli Kim) (Signed 23-Jun-2018 10:20) Authored: Signature/Cosignature/Attestation Co-Signer: Service, Subjective Data, Objective Data, Signature/Cosignature/Attestation Last Updated: 23-Jun-2018 10:20 by Kelli Kim) NUTRITION THERAPY-ASSESSMENT Observed: 06/21/2018 Status: [facility] Source: [place] 11:30 AM [facility]ITALS REPOSITORY Assessment Subjective/Objective: Note Type: Assessment Note Authored by: Registered Dietitian Tractor Trailer Operator Pager Number: [phone] Nutrition Note: The patient is a 77 year old Female who is Hospital Day # 2 and POD #1 for Right radical resection skin and parotid;Facial nerve dissection and preservations ;Submental island flap;Right mastoid obliteration. HPI: A/P: 77 yo with malignant basal cell carcinoma of face and parotid, HTN, GERD, HLT, history of tonsillar non-hodgkin lymphoma admitted for procedure described above. --> Physician consult for nutrition assessment/ recommendation. Met with pt and family at bedside this AM. Pt reports that s/p procedure, it is difficult to chew foods. So far, pt has only tolerated applesauce on regular diet. RDN sent pt soft foods meal tray for lunch and pt agreeable to Boost Pudding supplement. Objective Information: ---- Intake and Output ----- Mn/Dy/Year TimeIntakeOutputNet Jun 21, 2018 6:00 [id number] Jun 20, 2018 10:00 [id number] The Intake and Output Totals for the last 24 hours are: IntakeOutputNet [id number] Intake Output IV Fluids 3900 mL Blood 100 mL Drain 58.5 mL BM: none yet documented Height/Weight: Height in cm: 175.2 centimeter(s) Weight (kg): 70.3 BMI (kg/m2): 22.902 square meter DBW (kg): 65.9 %DBW: 107 Weight history/ % weight change: Pt denies recent weight change. 05/29/18 71.4kg 06/06/18 69.1kg 06/21/18 70.3kg Significant Weight Change: no Recent Lab Results: Results: I have reviewed these laboratory results: Renal Function Panel 21-Jun-2018 04:51:00 ResultValue Glucose, Serum 120 H NA 139 K 3.8 CL 105 Bicarbonate, Serum 26 Anion Gap, Serum 12 BUN 21 CREAT 0.86 GFR-Non >60 GFR- >60 Calcium, Serum 8.5 L Phosphorus, Serum 2.5 ALB 3.3 L Complete Blood Count 21-Jun-2018 04:51:00 ResultValue White Blood Cell Count 8.6 Nucleated Erythrocyte Count 0.0 Red Blood Cell Count 3.72 L HGB 11.2 L HCT 33.5 L MCV 90 MCHC 33.4 PLT 103 L RDW-CV 14.1 Current Active Medications/PN: ceFAZolin 1 gram IVPB/ Premixed Soln 50 mL, (ANCEF) Every 8 Hours Recommended Infusion Time: 30 minute(s) Stop After 4 Days Clinician Notes: If there is a shortage of Unasyn, 20-Jun-2018 Docusate, Capsule (COLACE) DOSE = 100 mg Oral 2 Times a Day, 20-Jun-2018 Pantoprazole, Enteric Coated Tablet (PROTONIX) DOSE = 40 mg Oral Daily Notes from Pharmacy: Substitution for Omeprazole 20 mg Oral Capsule Daily, 20-Jun-2018 Nutrition Orders: May Participate in Room Service, Yes Order entered from Admission Screens., 20-Jun-2018 Diet, Regular, 20-Jun-2018 Oral Nutritional Supplements, Routine Boost Pudding, 3 Times a Day, 21-Jun-2018 Food/Nutrition Related History: Change in Oral Intake/Appetite: no change GI Symptoms: none Time Frame for GI Symptoms Greater Than 2 Weeks: not applicable Oral Problems: denies Mobility: normal activity, pt reports she frequently mows her lawn Food Allergies: Allergen/ProductAllergen TypeReactionStatus EggsFoodNausea/VomitingActive Nutritional Supplements: vitamin/mineral, gummy multivitamin Food/Nutrition Related History: Pt reports that [employer], she was eating well at home without issue. Pt denies n/v/d/c and recent changes in weight. Besides eggs, pt does not have any food allergies or intolerances. Pt reports that she frequently eats cottage cheese as a high protein snack. Pt says that during chemo, she drank oral nutrition supplements but dislikes the taste of these and declines offer. Nutrition Focused Physical Findings: Muscle Wasting: Muscle Comment: degree of age related wasting however overt wasting not noted Loss of Subcutaneous Fat: Eyes: no Perioral: no Triceps: no Chest: no Other Physical Findings: Hair: negative Eyes: negative Mouth: negative Nails: negative Skin: ear to neck to chin incision Edema: none Change in Metabolic Demand: yes Subjective Global Assessment Rating: malnutrition not present at this time Estimated Needs: kcals/day: 3302-1428 gms protein/day: 85+ mL fluid/day: 1ml/kcal or per MD Nutrition Diagnosis: Diagnosis1 new. Dx: Increased protein needs. related to basal cell carcinoma as evidenced by increased metabolic demand to promote healing and prevent catabolism. Diagnosis2 new. Dx: Biting/chewing difficulty. related to s/p procedure above as evidenced by pt report of difficulty tolerating PO intake. Additional Assessment Information: Pt eating well at baseline and does not present with significant weight loss - do not feel that pt presents with s/s malnutrition at this time. However, s/p procedure, pt reports that it is difficult to chew and has only been able to tolerate applesauce thus far. Pt to benefit from soft foods diet and oral nutrition supplements; pt agreeable to try Boost Pudding. Nutrition Interventions: Individualized Nutrition Prescription Provided for: diet Ordered Supplements: Boost Pudding TID (230kcal, 7g pro each) Coordination of Care with: ENT team, ID rounds Other Interventions: small, freq meals Nutrition Goals: Goals: Nutrition Therapy: oral intake greater than 50%, consume prescribed supplement, adequate po fluid intake, Blood Glucose 80-180 mg/dl, electrolytes within normal limits, maintain stable weight Outcomes Summary: Nutrition Therapy Outcome Summary: Nutritional Therapy: Increased protein needs, chewing/biting difficulties NUTRITION RECOMMENDATIONS: Recommendations: 1. Continue diet as ordered; encourage Boost Pudding TID 2. Add senior MVI Nutrition Therapy Recommendations: Nutrition Therapy Recommendations: Please see RDN note 8/ Dietitian Monitoring and Evaluation Plan: Monitoring and Evaluation Plan: po intake and tolerance, fluid intake/adequacy, weight trend, stool output, labs Diet Education: Nutrition Education was Provided for the Following Diet: Reviewed soft foods and liquids with pt and family - cottage cheese, yogurt, mashed potatoes, soup, broth, juice, applesauce, oatmeal/cream of wheat, etc. Reviewed benefit of oral nutrition supplements Electronic Signatures: Miladis Powers (ERNA, BAILEE) (Signed 21-Jun-2018 11:41) Authored: Assessment Subjective/Objective, Nutrition Focused Physical Findings, Estimated Needs, Nutrition Diagnosis, Nutrition Interventions, Nutrition Goals, Nutrition Recommendations, Dietitian Monitoring and Evaluation Plan, Diet Education Last Updated: 21-Jun-2018 11:41 by Miladis Powers (ERNA, BAILEE) CBC Collected: 06/21/2018 Status: F Source: [place] 4:51 AM [facility] REPOSITORY TYPE CODE TESTS RESULT OUT OF REFERENCE UNITS RANGE LAB WBCR(LOINC 4.4 - 11.3 x10E9/L ) WBC 8.6 LAB NRBC(LOINC 0.0-0.0 /100 WBC ) NUCLEATED RBC 0.0 LAB RBCCT(LOIN 4.00 - 5.20 x10E12/L C) Low RBC 3.72 LAB HGB(LOINC) 12.0 - 16.0 g/dL Low HGB 11.2 LAB HCT(LOINC) 36.0 - 46.0 % Low HCT 33.5 LAB MCV(LOINC) 80 - 100 fL MCV 90 LAB MCHC2(LOIN 32.0 - 36.0 g/dL C) MCHC 33.4 LAB PLTCT(LOIN 150 - 450 x10E9/L C) Low PLT 103 LAB RDWCV(LOIN 11.5 - 14.5 % C) RDW-CV 14.1 Performed By: #### CBC #### [facility] [address] [place] [id number] RENAL FUNCTION PANEL Collected: 06/21/2018 Status: F Source: [place] 4:51 AM [facility] REPOSITORY TYPE CODE TESTS RESULT OUT OF REFERENCE UNITS RANGE LAB GLU(LOINC) 74 - 99 mg/dL GLUCOSE High 120 LAB SOD(LOINC) 136 - 145 mmol/L SODIUM 139 LAB K(LOINC) 3.5 - 5.3 mmol/L POTASSIUM 3.8 LAB CHLOR(LOIN 98 - 107 mmol/L C) CHLORIDE 105 LAB BIC(LOINC) 21 - 32 mmol/L BICARBONATE 26 LAB ANGAP(LOIN 10 - 20 mmol/L C) ANION GAP 12 LAB UREA(LOINC 6 - 23 mg/dL ) UREA NITROGEN 21 LAB CREA(LOINC 0.50 - 1.05 mg/dL ) CREATININE 0.86 LAB GFRFN(LOIN >60 mL/min/1.7 C) 3m2 GFR-NON AM. >60 LAB GFRAA(LOIN >60 mL/min/1.7 C) 3m2 GFR- AM. >60 Result Comment: CALCULATIONS OF ESTIMATED GFR ARE PERFORMED USING THE MDRD STUDY EQUATION FOR THE IDMS-TRACEABLE CREATININE METHODS. CLIN CHEM 2007;53:766-72 LAB CA(LOINC) 8.6 - 10.6 mg/dL CALCIUM Low 8.5 LAB PHOS(LOINC) 2.5 - 4.9 mg/dL PHOSPHORUS 2.5 Result Comment: The performance characteristics of phosphorus testing in heparinized plasma have been validated by the individual laboratory site where testing is performed. Testing on heparinized plasma is not approved by the FDA; however, such approval is not necessary. LAB ALB(LOINC) 3.4 - 5.0 g/dL Low ALBUMIN 3.3 Performed By: #### RENAL #### [facility] [address] [place] [address] DAILY PROGRESS Observed: Status: COMPLETED Source: [facility] NOTE-OTOLARYNGOLOGY 06/21/2018 4:10 AM [facility] REPOSITORY Service: Otolaryngology Subjective Data: ARCADIO ROTH is a 77 year old Female who is Hospital Day # 2 and POD #1 for Rigth radical resection skin and parotid;Facial nerve dissection and preservations ;Submental island flap;Right mastoid obliteration. Additional Information: S: No acute events overnight. No concerns from patient or nursing. O: AFVSS Gen - NAD, resting comfortably in bed Ears - External ears normal Nose - Anterior nares clear, no rhinorrhea OC/OP - No masses or lesions appreciated, normal salivary pool, OP without drainage Neck - No palpable LAD, incision c/d/i, drain in place with serosanguinous drainage and holding suction (stripped) Neuro - CN VII able to close eyes completely, lower lip symmetric at rest asymmetric with smile Ext - SCDs in place A/P: 77 yo female s/p wide local excision, R parotidectomy with facial nerve dissection and preservation, R submental island flap, sleeve resection of R EAC with R mastoidectomy with Dr. Lainez and Dr. Kim on 06/20. 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 HTN controlled GERD HLT History of tonsillar non-hodgkin lymphoma Plan: - Neuro: Tylenol and oxycodone for pain management, cont home gabapentin - Resp: wean O2 as able - CV: cont home amlodipine, atorvastatin, gemfibrozil - GI: advance diet as tolerated - FEN: NS @75- HLIV when adequate PO, nutrition consult for possible supplementation - ID: Ancef x 4 days - Eyes: artificial tears and lacrilube to R eye - Wheeler pulled, void trial today - Drains: monitor, stripping per protocol - Bacitracin to incisions TID until POD3 then switch to petroleum jelly/vaseline - Embolic PPx: SQH, SCDs while in bed - Dispo: 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 [id number] Objective Data: Objective Information: T PRBPSpO2 [id number]/6696% Date/Time06/20 23: 23: 23: 23: 23:44 Range(36.2C - 36.9C ) (76 - 77 ) (18 - 18 ) (136 - 143 )/ (66 - 79 ) (94% - 96% ) Highest temp of 36.9 C was recorded at 06/20 20:54 Pain at Rest reported at 7/31 20:20: 0 SCIP Measures: Urinary Catheter Removed Post-Op Day 2: N/A, patient does not have urinary catheter Patient on Beta John Prior to Admission: no Prophylactic antibiotics scheduled to be discontinued with 24 hr of anesthesia end time (48 hr for cardiac surgery): no Reason to Continue Antibiotics: Rule out infection Signature/Cosignature/Attestation: Attending AttestationI saw and evaluated the patient. I personally obtained the chinchilla and critical portions of the history and physical exam or was physically present for chinchilla and critical portions performed by the resident/fellow. I reviewed the resident/fellow?s documentation and discussed the patient with the resident/fellow. I agree with the resident/fellow?s medical decision making as documented in the resident?s note. I personally evaluated the patient (as noted in the above attestation) on 21-Jun-2018 Electronic Signatures: Jessica DE LEON, Sharad Kiser (Otolaryngology) YENY) (Signed 24-Jun-2018 13:08) Authored: Signature/Cosignature/Attestation Co-Signer: Subjective Data, Signature/Cosignature/Attestation Shikha Marie ( (Resident)) (Signed 21-Jun-2018 04:18) Authored: Service, Subjective Data, Objective Data, SCIP Measures Andrew Noel ( (Resident)) (Signed 21-Jun-2018 10:02) Authored: Subjective Data, Signature/Cosignature/Attestation Last Updated: 24-Jun-2018 13:08 by Sharad Lopez MD (Otolaryngology) YENY) DISCHARGE PLANNING Observed: 06/20/2018 Status: UNK Source: [facility] NOTE 11:57 PM HOSPITALS REPOSITORY Discharge Needs Assessment: ? Discharge Planning Assessment [id number] ? Discharge Planning Assessment Completed byDESIRE Hawkins OB Information: ? Primary Support Person During Hospitalizationson tasneem ? Lives Withalone Patient Learning: ? Factors that Impact Ability to Learnnone(1) Other Factors: ? Functional Screen: In the recent/past 2-4 weeks, patient or family have noticedno issues that require a rehabilitation consult at this time(2) Discharge Needs: ? Type of Equipment Currently in the Homewalker/cane ? Equipment Needed After Dischargenone Discharge Planning: Discharge Planning: Discharge assessment; Patient states that she lives alone independently, pt denies the use of any assistive devices. Admission note; Patient arrived from PACU via cart, VSS with no s/s of distress. Patient oriented to room and call light. 06/21/18 @ 1546 Business Resiliency Manager: Interdisciplinary rounds completed at the bedside with the patient. Pt admitted sp R temporal bone rx, Rx parotid and skin and submental island flap. Plan of care and goals for discharge reviewed with the patient. Patient informed of tentative discharge date. Pt lives independently at home alone. Children live close by and check on pt daily. Pt states her granddaughter will stay with her after discharge. No home care prior to admission. Pt has a walker and cane at home, but she does not use them to ambulate. No transportation or financial concerns. Address/phone verified Pt has insurance, [employer]. PCP is Dr Alvarez and preferred pharmacy is [facility] in [place]. Assess discharge needs throughout stay. DESIRE Hawkins 06-23-2018 17:38 Discharge Planning Progress Note - AC 12:09pm: -IMM Letter delivered to patient, patient signed, dated, original to patient, copy to medical record. (Mohini Mccoy ) 06/24/18 @1100 Pt. understood all discharge teaching and instructions. Pt. given prescriptions, including Tramadol prescription. IVs removed; catheters intact. Pt. transported to vehicle of transportation via wheelchair by pt. transport. Pt. safely discharged home. Ericka Vee RN Electronic Signatures: Alia Gibson (CN) (Signed 21-Jun-2018 00:01) Authored: Discharge Planning Note Fanny Ruiz (CLIN COOR) (Signed 21-Jun-2018 15:51) Authored: Discharge Planning Note Ericka Vee (RN) (Signed 24-Jun-2018 11:17) Authored: Discharge Planning Note Last Updated: 24-Jun-2018 11:17 by Ericka Vee (ROBY) References: 1. Data Referenced From 5. Education 06/20/2018 9:20 PM 2. Data Referenced From Admission Risk Screen - Adult 06/20/2018 9:20 PM PATIENT PROFILE - Observed: 06/20/2018 Status: UNK Source: [facility] ADULT V2 9:25 PM HOSPITALS REPOSITORY Profile: Initial Info: How to be AddressedNancy(1) Spoken Language PreferredEnglish (1) Are you currently using the Personal Electronic Health Record or STP Groupno (1) Stated Reason for Admissionright ear surgery for ca Primary Contact Name and Numbersflorentin De La Cruz Arrived FromOR Patient Belongingsnone Medications Brought to Hospitalno General Health: Weight in kg70.3 kilogram(s) Weight in ixw156 pound(s) Height in feet5 feet Height in inches9 inch(es) Height in cm175.2 centimeter(s) BMI (kg/m2)22.902 square meter Weight Methodactual (measured) Scale Typebed Height Methodstated Blood Avoidance/Restrictionsnone(1) Previous Transfusion Reactionno(1) RSP Based Care: How would you like to participate in your care?unsure What is the number one concern for you during this hospitalization?pain What is the most important thing we can do to support you during this hospitalization?keep informed Is there anything we need to know to best care for you?unsure Substance: Current or Former Substance Use never: Cigarette/Tobacco(1), Alcohol(1), Street Drugs(1) Health Mgmt: Symptoms/Conditions Managed at [place] Relationship/Environ: Primary Source of Support/Comfortchild(landon) Lives Withalone Living Arrangementshouse Resource/Environmental Concernsnone Anticipated Transition [facility] Services Anticipated at Transitionnone Significant IndicatorsComplete Information Review: ? Allergies, Home Meds and Significant Events have been Reviewed and Verified with Patient/Familyyes ALLERGY, INTOLERANCE, ADVERSE EVENT: Allergies: ? No Known Allergies: Active Intolerances: ? Eggs: Food, Nausea/Vomiting, Active Electronic Signatures: Alia Gibson) (Signed 20-Jun-2018 21:28) Authored: Profile, Additional Information Last Updated: 20-Jun-2018 21:28 by Alia Gibson (TEETEE) References: 1. Data Referenced From Patient Profile - Preop v2 06/20/2018 6:24 AM ADMISSION RISK SCREEN Observed: 06/20/2018 Status: UNK Source: [facility] - ADULT 9:20 PM HOSPITALS REPOSITORY Allergies: Allergies: ? No Known Allergies: Intolerances: ? Eggs: Nausea/Vomiting Patient Verification: ? New W ID Band Applied in my Departmentyes ? Patient Identity Verified Bypatient ? ID Band FULL Name, include Middle, spelling matches patient's ID used for verificationyes ? ID Band Matches Patient ID used for Verficationyes ? ID Band MRN Matches EMR MRNyes Advance Directive: ? Advance Directive Medicalno (1) ? Advance Directive Information Givenpatient/family declined (1) ? Advance Directive Mental Healthnot applicable Falls Screen: Type of Assessmentadmission Moderate Risk Factorsaltered elimination, patient care equipment (scds, iv?s, chest tubes, wheeler, etc) High Risk Factorsgait instability, symptoms due to meds (sedatives, hypnotics, new diuretics and new laxatives) Risk for Injury Associated with Fallrisk of surgical complications post surgery (recent abdominal, thoracic surgery, lower limb amputation) Fall Risk Conclusionhigh falls risk with risk for associated injury [place] Safety InterventionsWDL *orient to call system *instruct to call for assistance before getting out of bed *non-slip footwear when patient is out of bed *call alberts in reach *personal items and telephone in reach *physically safe environment (no spills or clutter) *bed in lowest position with wheels locked *appropriate side rails in place *room/bathroom lighting operational, light cord in reach *appropriate signage on door Family Violence Screen: ? Are you or have you been threatened or abused physically, emotionally, or sexually by anyone?no ? Do you feel UNSAFE going back to the place where you are living?no ? Clinical assessment: Are there any apparent signs of injuries/behaviors that could be related to abuse/neglectno ? Social Service Consult for abuse/neglect needed this visit?no Functional screen: ? Functional Screen: In the recent/past 2-4 weeks, patient or family have noticedno issues that require a rehabilitation consult at this time Learning Assessment (Patient): ? Patient is Able to be Assessed for Learningyes ? Factors Influencing Readiness to Learnpain ? Factors that Impact Ability to Learnnone ? Devices/Methods Used to Communicatenone ? Learning Preferencesverbal instruction; skill demonstration; written material ? Cultural Considerationsnone ? Developmental Considerationsnone ? Nondenominational Considerationsnone Learning Assessment (Other Learner): ? Other learner availableno Suicide/Depression Screen: ? During the past month, have you often been bothered by feeling down, depressed or hopeless?no (1) ? During the past month, have you often had little interest or pleasure in doing things?no (1) ? Have you had any thoughts of harming yourself?no (1) ? Have you had any thoughts of harming anyone else?no (1) Adult Nutrition Screen: ? Have you recently lost weight without tryingno ? Have you been eating poorly because of a decreased appetiteno ? MST Score0 ? RiskMST = 0 or 1 Not at risk. Eating well with little or no weight loss ? Nutrition Consult needed this visit?no ? Can Patient Participate in Room Service?yes ? Patient requires Paper Dishes/Plastic Utensilsno Pain Screen: ? Pain Scalenumerical 0-10 (1) ? Pain Scale Educationteaching provided (1) ? Current Pain Level0 = None ? Acceptable Pain Levelunable to assess ? Expression of Pain (nonverbal)verbalization ? Chronic Painno (1) Spiritual Screen: ? Are there any cultural, spiritual, yazdanism practices/values/needs that are important for us to know?no CAGE: Is this an injured patient at a Trauma Center ([facility]): no Vaccinations: Vaccination - Influenza Vaccination Screen: ? Is it flu season? (between and )No Vaccination - Pneumonia Vaccination Screen: ? Patient has received a previous pneumonia vaccine:yes Parag: Skin - Parag Scale: ? Parag: Sensory Perception (response to environment)(3) slightly limited ? Parag: Moisture (degree skin exposed to moisture)(4) rarely moist ? Parag: Activity (ability to walk)(3) walks occasionally ? Parag: Mobility (amount/control of body movement)(3) slightly limited ? Parag: Nutrition (quality of food intake)(3) adequate ? Parag: Friction and Shear(3) no apparent problem ? Parag: Score19 Significant Indicatiors: Significant Indicators: Complete Pressure Injury: Pressure Injury Present on Admissionno Electronic Signatures: Alia Gibson) (Signed 20-Jun-2018 21:23) Authored: Admission Risk Screens, Vaccinations, Parag, Pressure Injury Last Updated: 20-Jun-2018 21:23 by Alia Gibson (TEETEE) References: 1. Data Referenced From Patient Profile - Preop v2 06/20/2018 6:24 AM POST OPERATIVE NOTE - Observed: 06/20/2018 Status: COMPLETED Source: [facility] OR 6:20 PM HOSPITALS REPOSITORY Post Operative Note: PreOp Diagnosis: Basal cell carcinoma right neck and EAC Post-Procedure Diagnosis: Same Procedure: Radical resection of right facial malignancy/skin Right parotidectomy with facial nerve dissection and preservation Submental island flap Right mastoid obliteration Complex right facial closure 15cm Complex right ear reconstruction 7.5cm Surgeon: Jessica Resident/Fellow/Other Coin Machine Service Repairer: Sadie Mercaod Anesthesia: general Estimated Blood Loss (mL): 100 Specimen: yes. Right skin lesion, New medial margins Complications: none Findings: Large BCC involving skin of the right EAC, conchal bowl, tragus and parotid. Submental island flap used to fill defect. Nerve stimulated at completion of case. Doppler showed strong pulse. Patient Returned To/Condition: PACU in stable condition Drains and/or Catheters: Left neck 15 round Right neck 10 round Postauricular / [place] Signature/Cosignature/Attestation: Attending AttestationI was present for chinchilla portions of the procedure and the procedure lasted longer than 5 minutes. Electronic Signatures: Sharad Lopez MD (Otolaryngology) YENY) (Signed 21-Jun-2018 07:56) Authored: Post Operative Note, Signature/Cosignature/Attestation Co-Signer: Post Operative Note, Signature/Cosignature/Attestation Andrew Noel (Resident)) (Signed 20-Jun-2018 18:27) Authored: Post Operative Note, Signature/Cosignature/Attestation Last Updated: 21-Jun-2018 07:56 by Sharad Lopez MD (Otolaryngology) YENY) POST OPERATIVE NOTE - Observed: 06/20/2018 Status: COMPLETED Source: [place] OR 3:01 PM HOSPITALS REPOSITORY Post Operative Note: PreOp Diagnosis: right BCCA ear Post-Procedure Diagnosis: same Procedure: right lateral temporal bone resection Surgeon: francis Resident/Fellow/Other Coin Machine Service Repairer: duane Anesthesia: ga Estimated Blood Loss (mL): 15 Specimen: yes Findings: negative margin on the glenoid, removed enbloc Operative Report Dictated: Dictation: yes Dictation job number: [id number] Signature/Cosignature/Attestation: Attending AttestationI was present for the entire procedure Electronic Signatures: Kelli Kim) (Signed 20-Jun-2018 15:02) Authored: Post Operative Note, Signature/Cosignature/Attestation Last Updated: 20-Jun-2018 15:02 by Kelli Kim) HISTORY AND PHYSICAL Observed: 06/20/2018 Status: UNK Source: [facility] SURGICAL UPDATE < 6:50 AM HOSPITALS REPOSITORY 30 DAYS This report has been cancelled. HISTORY AND PHYSICAL Observed: 06/20/2018 Status: COMPLETED Source: [facility] SURGICAL UPDATE < 6:34 AM HOSPITALS REPOSITORY 30 DAYS History & Physical Reviewed: I have reviewed the History and Physical dated: 29-May-2018 History and Physical reviewed and relevant findings noted. Patient examined to review pertinent physical findings.: No significant changes Home Medications Reviewed: no changes noted Allergies Reviewed: no changes noted This patient has been seen and discussed with the attending physician responsible for performing the procedure: yes Signatures/Attestation/Certification: Attending AttestationI saw and evaluated the patient. I personally obtained the chinchilla and critical portions of the history and physical exam or was physically present for chinchilla and critical portions performed by the resident/fellow. I reviewed the resident/fellow?s documentation and discussed the patient with the resident/fellow. I agree with the resident/fellow?s medical decision making as documented in the resident?s note. I personally evaluated the patient (as noted in the above attestation) on 20-Jun-2018 Attending Provider ? Inpatient Certification StatementI certify this patient?s need for inpatient care based on the above documentation including; the order to admit as inpatient, the anticipated length of stay, diagnosis, problem list and plan of care, and discharge plan. I certify that SNF services are required to be given on an inpatient basis because of the above named patient's need for [facility] care on a continuing basis for the condition(s) for which he/she was receiving inpatient hospital services prior to his/her transfer to the SNF. Electronic Signatures: Sharad Lopez MD (Otolaryngology) () (Signed 21-Jun-2018 07:54) Authored: Signatures/Attestation/Certification Co-Signer: History & Physical Reviewed, Signatures/Attestation/Certification Andrew Noel (Resident)) (Signed 20-Jun-2018 12:46) Authored: History & Physical Reviewed, Signatures/Attestation/Certification Last Updated: 21-Jun-2018 07:54 by Sharad Lopez MD (Otolaryngology) YENY) PATIENT PROFILE - Observed: 06/20/2018 Status: UNK Source: [place] PREOP V2 6:24 AM HOSPITALS REPOSITORY Profile: Initial Info: How to be AddressedNancy Spoken Language PreferredEnglish Source of Informationpatient Are you currently using the Personal Electronic Health Record or MYUHCAREno Are you interested in learning more about MYCARE for the management of your healthnot at this time Stated Reason for Admissionremove tumor from right side - points to right ear Primary Contact Name and NumberAndgilbert (son) [phone] Patient BelongingsUH bag x 1, dentures (top and bottom) Medications Brought to Hospitalno General Health: Weight in kg70.2 kilogram(s) Weight in ioa343.7 pound(s) Weight Methodactual (measured) Scale Typestanding Height in cm174 centimeter(s) Height Methodstated BMI (kg/m2)23.186 square meter Patient or Family Member Reaction to Anesthesiano previous reaction Blood Avoidance/Restrictionsnone Previous Transfusion Reactionno Health Mgmt: Symptoms/Conditions Managed at Homecancer; cardiovascular; musculoskeletal; gastrointestinal; bladder/vaginal prolapse, low platelet, tonsillectomy, crani, mediport placement Cancer Symptoms/Conditionslymphoma; brain tumor - benign cranial bone tumor with resection/crani lymphoma - non-hodgkins lymphoma Treatment Givenchemotherapy, radiotherapy Last Chemotherapy Givenmore than 90 days ago Last Radiotherapy Givenmore than 90 days ago Cardiovascular Symptoms/Conditionshypertension; HLD, BLE Edema Gastrointestinal Symptoms/Conditionsreflux/heartburn; PUD Musculoskeletal Symptoms/Conditionsback pain; osteoarthritis Barriers to Managing Healthnone Relationship/Environ: Lives Withalone Living Arrangementshouse Resource/Environmental Concernsnone [place]ticipated [place] Services Anticipated at Transitionnone Substance: Current or Former Substance Use never: Cigarette/Tobacco, e-Cigarette/Vaping, Alcohol, Street Drugs Risk Screens: Advance Directive Medicalno Advance Directive Information Givenpatient/family declined During the past month, have you often been bothered by feeling down, depressed or hopeless?no During the past month, have you often had little interest or pleasure in doing things?no Have you had any thoughts of harming yourself?no Have you had any thoughts of harming anyone else?no Patient is Able to be Assessed for Learningyes Factors Influencing Readiness to Learnacuteness of illness Factors that Impact Ability to Learncommunication limitations, hard of hearing, right ear Devices/Methods Used to Communicatenone Learning Preferenceswritten material; individual instruction; verbal instruction Cultural Considerationsnone Developmental Considerationsnone Nondenominational Considerationsnone Other learner availableno Falls RiskPatient location auto qualifies him/her for HIGH RISK. Are there any cultural, spiritual, yazdanism practices/values/needs that are important for us to know?no Pain Scalenumerical 0-10 Pain Scale Educationteaching provided Current Pain Level0 = None Acceptable Pain Levelunable to assess Chronic Painno Information Review: ? Allergies, Home Meds and Significant Events have been Reviewed and Verified with Patient/Familyyes Allergy, Intolerance, Adverse Event: Allergies: ? No Known Allergies: Active Intolerances: ? Eggs: Food, Nausea/Vomiting, Active Electronic Signatures: Gin Linares (ROBY) (Signed 20-Jun-2018 06:29) Authored: Profile, Additional Information Last Updated: 20-Jun-2018 06:29 by Gin Linares (ROBY) PREOP CHECKLIST Observed: 06/20/2018 Status: UNK Source: [place] 6:21 AM HOSPITALS REPOSITORY Preop Checklist: Preop Checklist: ? Arrival [id number] ? Arrival Time05:53 ? Procedure clinical research nurse coordinator parotidectomy, wide local excision of R facial skin, facial nerve dissection, poss facial nerve resection and grafting, R cervicofacial advancement flap, R supraclavicular flap, or R submental island flap, sleeve resection of R EAC with R mastoidectomy ? NPO [id number] 00:00 ? NPO CommentAM meds ? ID Band Onyes ? Allergy Bandno known allergies ? Consent Signedyes ? H&P Completepending ? Anesthesia Assessment Completedpending ? EKG Performedsee results tab ? Chest X-Ray Performedsee results tab ? Chlorhexadine Bath Givennot applicable ? Soap and water bath with hair shampoo the night before surgeryyes ? SCD's Appliedsent to OR ? GERTRUDE Hose Appliedyes ? Denturesplaced in locker ? Prostheticsnot applicable ? Hearing Aidsnot applicable ? Valuables Securedplaced in locker [facility] bag x 1 ? Glasses / Contactsnot applicable ? Bowel Prepno Cardiovascular Assessment: ? Apicalregular ? Radial Pulsespalpable ? Extremitieswarm, well perfused ? Central Venous Access Devicemediport Rt chest wall, not accessed Respiratory Assessment: ? Respirationsunlabored regular ? Air Exchangeequal, good ? Breath Soundsclear Neurological Assessment: ? Level of Consciousnessalert, oriented ? Mobilitymoves all extremities ? Able to Express Selfyes ? Age Appropriateyes ? Emotional Statuscalm Preop Education: ? Surgical Site Infection Preventionyes ? Pain Scales and Managementyes Language / Communication: ? Language / CommunicationEnglish Electronic Signatures: Gin Linares (ROBY) (Signed 20-Jun-2018 06:24) Authored: Preop Checklist Last Updated: 20-Jun-2018 06:24 by Gin Linares (RN) OPERATIVE REPORT Observed: 06/20/2018 Status: UNK Source: [place] 12:00 [place] [address] Patient Name: NANCY. Crow ROTH : 1940 Date of Service: 06/20/2018 Patient Location: [place] [id number] Patient Type: I Surgeon: Sharad Lopez MD Report Type: Operative Reports PREOPERATIVE DIAGNOSIS: Invasive basal cell carcinoma. POSTOPERATIVE DIAGNOSIS: Invasive basal cell carcinoma. OPERATION/PROCEDURE: 1. Right-sided lateral temporal bone excision with preservation of the facial nerve. 2. Facial nerve monitoring. 3. Microsurgical add-on. SURGEON: Kelli Kim MD RECREATION DIRECTOR(S): Anita Bryant MD ANESTHESIA: GA, Kiesha Cintron md INDICATION FOR OPERATION: Ms. Roth is a 77-year-old woman with a history of a non- Hodgkin's lymphoma, for which she received radiation in the distant past. She subsequently developed a basal cell carcinoma of her skin which was treated, however, she had recurrence. She did recieve radiation to the temporal bone in order to try to treat this lesion, however, her lesion did not respond and progressed. 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 Preoperatively, her facial nerve function was 1/6. Given the location of the tumor centered at the tragus, we elected for a complete lateral temporal bone resection because the ear canal skin did appear involved on her preoperative examination. FINDINGS AT OPERATION: Frozen section margins at the glenoid were negative. There was an area of, sort of moth eaten bone at the root of the zygoma, this was drilled down with high-speed drill. The eustachian tube was packed with the myofascial tissue. DESCRIPTION OF OPERATION: The patient was taken to the operating room with Dr. Lopez at the beginning of the case. She was positively identified. Consent was signed in the preop area. She was brought to the operating room, induced into general anesthesia. Facial nerve electrodes were placed in orbicularis oculi and orbicularis codie muscle. Placement was confirmed of the facial monitoring. Continuous facial monitoring was then performed for the rest of the case which lasted approximately 6 hours. My portion of the surgery lasted approximately 2 hours. The incisions were designed in conjunction with Dr. Lopez. She then proceeded to perform a parotidectomy and superior neck dissection, and then I came in to perform the lateral temporal bone resection. Once the mastoid cortex was exposed, the high-speed drill was used to do a cortical mastoidectomy. The horizontal semicircular canal was identified. The mastoid tip was taken down to the digastric muscle. The sigmoid sinus was identified exposing burred down. The tegmen was identified. At this point, the incus was removed. The high-power microscope was then brought in for the rest of the case. The facial recess was drilled extending down to an extended facial recess. The inferior trough was drilled forward through the hypotympanic bone superiorly. The superior trough was drilled all the way around anterior to the head of the malleus into the glenoid fossa. Once the canal was surrounded in 270 degrees, I used my thumb to fracture the ear canal forward. We then dissected the tissue en bloc with the parotid specimen. There was a small amount of the anterior annular bone that was left in place and so, I removed this again with a high-speed drill. The tensor tympani was cut prior to removing the specimen. The eustachian tube orifice was then packed with muscle. The bone in the mastoid cavity was polished with a high-speed drill. At this point, Dr. Lopez came in and performed the rest of the excision and reconstruction, and her portion of the dictation will be dictated separately. ESTIMATED BLOOD LOSS: For my portion of the procedure is 15 cc. SPECIMENS: En bloc resection of the ear canal, parotid, and skin of the ear. COMPLICATIONS: No complications apparent during my portion of the procedure. COUNTS: Sponge, needle, and jose counts were correct at the end of my portion of the case. Kelli Kim MD EST TT: 06/21/2018 07:10 AM EST DICTATION NUMBER: [id number] CHUCK JOB NUMBER: [id number] CC: Sharad Lopez MD, Arcadio Alvarez MD Edited by Kelli Kim 06/23/2018 07:35:20 AM Electronically Signed by Dr. Kelli Kim 06/23/2018 07:35:20 AM OPERATIVE REPORT Observed: 06/20/2018 Status: UNK Source: [place] 12:00 [place] [address] Patient Name: NANCY. Crow ROTH : 1940 Date of Service: 06/20/2018 Patient Location: [facility] [id number] Patient Type: I Surgeon: Sharad Lopez MD Report Type: Operative Reports PREOPERATIVE DIAGNOSES: 1. Right parotid basal cell carcinoma. 2. Right EAC cancer involvement. 3. History of right tonsil lymphoma status post radiation. POSTOPERATIVE DIAGNOSES: 1. Right parotid basal cell carcinoma. 2. Right EAC cancer involvement. 3. History of right tonsil lymphoma status post radiation. 4. Acquired ear and facial defect, open wound of the ear/face. OPERATION/PROCEDURE: 1. Radical resection of her right facial skin, measuring 6 x 4.5 cm. 2. Right parotidectomy with facial nerve dissection and preservation. 3. Right submental island flap. 4. Complex facial closure measuring 20 cm. 5. Mastoid obliteration. 6. Right partial auriculectomy. SURGEONS: 1. Sharad Lopez MD RECREATION DIRECTOR(S): Flaquito Mercado MD ANESTHESIA: General. ESTIMATED BLOOD LOSS: 50 mL. COMPLICATIONS: There were no complications. OPERATIVE INDICATIONS: Ms. Roth is a 77-year-old female who was recently noted to have an enlarging right facial mass with associated pain. This was felt to be involving the external auditory canal and biopsies obtained confirmed the diagnosis of basal cell carcinoma. Therefore, it was recommended she undergo resection of this, which would require a radical resection of both the soft tissue of her face and parotid as well as a lateral temporal bone resection. The need for reconstruction was recognized, and therefore, she was consented for a rotational flap in addition to the above. Risks, benefits, and alternatives were discussed with the patient at length. OPERATIVE FINDINGS: A right parotid/right facial mass was noted to have enlarged since the time of the patient's last exam. This did involve the right facial skin as well as the external auditory canal. We began first by marking out the skin incision, and this did measure approximately 6 x 4.5 cm and extended from above the tragus down to the lobule. Due to the fact that the external auditory canal was involved, a portion of the ear had to be removed, and this was marked out including most of the lobule, then come across the helix to the base of the helical rim. We began first by injecting this with 1% lidocaine with 1:100,000 epinephrine. The patient was then sterilely prepped and draped in the usual sterile fashion. Once this was complete, using a 15 blade, we began the incisions coming around the facial incisions down onto the parotid fascia. Prior to making the incision, the bed was turned 180 degrees. The patient was kept supine, and a shoulder roll was placed. A facial nerve monitor was conducted and checked for accuracy, and a time-out was confirmed. Preoperative and antibiotics were administered and documented. No long-term muscle relaxants were used. The skin incision was brought down into the neck and injected as described. Using the knife, incision was carried down to the level of this mass overlying the parotid tissue. The greater auricular nerve was identified. It was taken as this did lead directly into the mass, and it was preserved for potential use later for the facial nerve and grafting if needed. The skin was raised anteriorly until the end of the parotid tissue was reached. I then developed a plane medial to the sternocleidomastoid up to the mastoid tip, identified the posterior belly of the digastric, which was also followed up to the mastoid tip. At this point because we could not go to the external auditory canal where the tragus was located as this was all involved, we began to identify the nerve for retrograde dissection starting at where the marginal mandibular nerve would be. We used our landmarks to follow this posteriorly toward the main trunk. I was able to find this. It was difficult as she was quite scarred. However, I was able to identify the marginal mandibular nerve and traced this back to the lower division of the trunk of the facial nerve. We then continued to work the lower division back to the main trunk and then followed this up to the superior division. I was able to save all of the nerve branches. The mass was found to be adjacent but not directly invading into the nerve. The nerve was working preoperatively, so I did not take the nerve. We continued to release all the tissue superiorly. There was a small area of mass that was seen to be eroding into the zygoma. This was drilled the down to clear it and as described in Dr. Kelli Kim's dictation. In regard to the TMJ joint, there was no direct involvement of the joint itself, but the overlying tissue was tested and was negative, although there was a separate small cauterized portion of microscopic basal cell carcinoma. Therefore, additional tissue was taken, but this was all negative. Once the parotid tissue had been removed completely it was only attached to the external auditory canal. Dr. Kelli Kim came in and did her lateral temporal bone resection. Following this, we were able to remove the specimen which was sent for frozen analysis of margins. Skin margins were obtained, and these were all negative except for the superior aspect. A re-excision was performed, and this was negative on the permanent. At this time, we then proceeded with the submental island flap. The 6 x 4.5 facial skin tissue was measured in the chin to be 7 x 5 cm, and this was marked out in the submental tissue. Using a 15 blade, we came through the skin and then Bovie electrocautery to come through the deeper tissues. We made sure to come down to identify the anterior belly of the digastric on the left. Due to the fact that we needed some thickness to do the mastoid obliteration, we did take the anterior digastric both on the left and the right as well as a portion of the mylohyoid again because we needed that additional thickness. We then followed the submental branches back to the facial artery and were able to turn the flap on the facial artery. This was very difficult as there was a calcified mass where her submandibular gland had been located, probably from her prior radiation. I was able to get this released so that there was no tension. I was able to bring that skin into place and then reset the ear into place. The mastoid obliteration was performed using the muscle from mylohyoid that had been harvested with the right submental island flap. Once this was complete, then we began the complex closure of the right face using the submental island flap using 3-0 Vicryl for the deep dermis followed by a running 5-0 fast. Placed 2 drains into the right neck and 1 into the postauricular aspect which was a [place]. Once this was complete, the patient was turned over to Anesthesia. She was extubated, awakened, and brought to PACU in stable condition. Sharad Lopez MD EST TT: 06/26/2018 01:48 AM EST DICTATION NUMBER: [id number] SPHERIS JOB NUMBER: [id number] CC: Arcadio Alvarez MD Edited by Sharad Lopez 06/27/2018 10:27:06 PM Electronically Signed by Dr. Sharad Lopez 06/27/2018 10:27:06 PM [facility] SURGICAL PATHOLOGY Observed: 06/20/2018 Status: C Source: [facility] 12:00 AM [facility]OSPITALS REPOSITORY Name ARCADIO ROTH Pathologist: BRODY SANDHU MD Date of Procedure: 06/20/2018 Date Received: 06/20/2018 Date Reported 07/07/2018 Submitting Physician: SHARAD LOPEZ MD Location: [facility] Other External # Case is Amended FINAL DIAGNOSIS A. RIGHT TM JOINT CAPSULE, BIOPSY: -- MINUTE FOCUS OF CRUSHED ATYPICAL CELLS. B. RIGHT AURICULAR CARTILAGE, EXCISION: -- CARTILAGE AND SCANT ADJACENT FIBROUS TISSUE WITH NO EVIDENCE OF MALIGNANCY. C. RIGHT INFERIOR PAROTID, EXCISION: -- FIBROADIPOSE TISSUE, SCANT SKELETAL MUSCLE, AND ONE LYMPH NODE WITH NO EVIDENCE OF MALIGNANCY (0/1). D. RIGHT FACIAL SKIN EXCISION, PAROTIDECTOMY, AND EAC RESECTION: -- INVASIVE POORLY DIFFERENTIATED SQUAMOUS CELL CARCINOMA, SEE NOTE. Note: The maximal depth of invasion is 2.6 cm. Carcinoma invades cartilage. Invasive carcinoma is present at the superior medial (D1, D2), inferior medial (D4), and superior lateral (D9) margins. A section from the shaved inferior lateral margin (D5), shows a focus of invasive carcinoma (likely within an angiolymphatic space) in the deeper permanent sections, but not in the original frozen section, indicating that the carcinoma is likely less than 1 mm from the margin in this area. The bony and deep soft tissue margins are uninvolved. See additional margins below. An immunostain for p40 is positive in the carcinoma. Immunostains for CK 20, CD56, and chromogranin are negative. The findings are consistent with squamous cell carcinoma. Staff Consultants: Drs. George Jaquez (Dermatopathology) and Monserrat Houston. E. ADDITIONAL MEDIAL MARGIN, EXCISION: -- SKIN WITH NO EVIDENCE OF MALIGNANCY. F. ADDITIONAL LATERAL SUPERIOR MARGIN, EXCISION: -- SKIN WITH NO EVIDENCE OF MALIGNANCY. G. RIGHT MASTOID CONTENTS: -- FIBROUS TISSUE AND BONE WITH NO EVIDENCE OF MALIGNANCY. H. ADDITIONAL JOINT TISSUE, EXCISION: -- FIBROUS TISSUE AND MATURE ADIPOSE TISSUE WITH NO EVIDENCE OF MALIGNANCY. Electronically Signed Out By BRODY SANDHU MD/DION By the signature on this report, the individual or group listed as making the Final Interpretation/Diagnosis certifies that they have reviewed this case. Amendment Comments: Amended: 07/04/2018 Reason: Review by another pathologist Part D final diagnosis changed from Basal cell carcinoma. . . to Invasive poorly differentiated squamous cell carcinoma. Previous Signout Date: 07/03/2018 Intraoperative Consultation: A: RIGHT TM JOINT CAPSULE Frozen Section 1: Date Ordered: 06/20/2018 12:22 Date Received: 06/20/2018 12:22 Date Called: 06/20/2018 12:43 Intraoperative Diagnosis: A) right TM joint capsule: Minute cluster of crushed atypical cells at edge of tissue (present on the first level only) cannot exclude contaminant. Intraoperative Consult Pathologist(s): JOSE F CHUNG DO (P) B: RIGHT ARICULAR CARTILAGE Frozen Section 1: Date Ordered: 06/20/2018 12:22 Date Received: 06/20/2018 12:22 Date Called: 06/20/2018 12:43 Intraoperative Diagnosis: B) Right auricular cartilage: Negative for malignancy. Intraoperative Consult Pathologist(s): JOSE F CHUNG DO (P) D: RIGHT FACIAL SKIN PAROTIDECTOMY AND EAC RESECTION Frozen Section 1: Date Ordered: 06/20/2018 12:34 Date Received: 06/20/2018 12:34 Date Called: 06/20/2018 16:00 Intraoperative Diagnosis: D. the superior medial margin: A1 suspicious, A2 positive for carcinoma, superior/lateral A9 positive for carcinoma. Remaining skin margins negative for carcinoma. Intraoperative Consult Pathologist(s): JOSE F CHUNG DO (P) E: ADDITIONAL MEDIAL MARGIN, STITCH-SUPERIOR, INKED-TRUE MARGIN Frozen Section 1: Date Ordered: 06/20/2018 12:34 Date Received: 06/20/2018 12:34 Date Called: 06/20/2018 16:35 Intraoperative Diagnosis: E. additional medial margin: Negative for carcinoma Intraoperative Consult Pathologist(s): JOSE F CHUNG DO (P) F: ADDITIONAL LATERAL SUPERIOR MARGIN Frozen Section 1: Date Ordered: 06/20/2018 12:34 Date Received: 06/20/2018 12:34 Date Called: 06/20/2018 16:35 Intraoperative Diagnosis: F. additional lateral superior margin: Negative for carcinoma Intraoperative Consult Pathologist(s): JOSE F CHUNG DO (P) nxj/06/20/2018 Clinical History: Basal cell carcinoma Specimens Submitted As: A: RIGHT TM JOINT CAPSULE B: RIGHT ARICULAR CARTILAGE C: RIGHT INFERIOR PAROTID D: RIGHT FACIAL SKIN PAROTIDECTOMY AND EAC RESECTION E: ADDITIONAL MEDIAL MARGIN, STITCH-SUPERIOR, INKED-TRUE MARGIN F: ADDITIONAL LATERAL SUPERIOR MARGIN G: RIGHT MASTOID CONTENTS H: ADDIOTIONAL JOINT TISSUE Gross Description: A. Received fresh for intraoperative consultation, labeled with the patient's name and hospital number is one piece of red-kessler soft tissue measuring 0.6 x 0.4 x 0.2 cm. The specimen is entirely submitted for frozen evaluation and in one cassette. NXJ B. Received fresh for intraoperative consultation, labeled with the patient's name and hospital number is one piece of pink kessler soft tissue measuring 1.9 x 0.2 x 0.1 cm. The specimen is entirely submitted for frozen evaluation and in one cassette. NXJ C: Received in formalin, labeled with the patient's name and hospital number, is an unoriented lobulated segment of kessler-pink soft tissue measuring 3.5 x 2.2 x 0.4 cm. The specimen is inked black and serially sectioned to reveal kessler-brown lobulated spongy cut surface. There is a 0.4 x 0.4 x 0.2 cm red-brown ill-defined area that is 0.2 cm from the closest margin. The specimen is entirely submitted in 4 cassettes. NPH D. Received in formalin, labeled with the patient's name and hospital number, is a right facial skin excision, parotidectomy, and external ear canal resection with attached lateral temporal bone that measures 6.4 x 5.3 x 3.6 cm. The resected surface has previously been inked black. The remainder of the specimen surface is covered by kessler-white skin. On serial sectioning, a kessler-white mass with a light pink central region is identified that extends along the anterior portion of the external auditory canal. The mass measures 4.7 x 2.7 x 2.5 cm, lies 0.1 cm from the medial resection margin, and invades the parotid gland anteriorly. The lateral temporal bone is inked in the following manner: posterior green, anterior black, medial blue, inferior yellow, and superior uninked. Photographs have been taken. Margins are submitted for frozen sections. Legal Receptionist sections are submitted in 23 cassettes. NPH E. Received fresh, labeled with the patient's name and hospital number is one piece of cylindrical white-kessler soft tissue, measuring 4.2 x 0.3 x 0.2 cm, oriented with a stitch as superior and inked at one surface as true margin. The specimen is re-inked black, bisected (yellow ink at superior), and entirely submitted for frozen evaluation and in two cassettes. NXJ/AO F. Received fresh, labeled with the patient's name and hospital number is one piece of kessler-brown soft tissue measuring 0.7 x 0.2 x 0.1 cm. The specimen is entirely submitted for frozen evaluation and in one cassette. NXJ G: Received in formalin, labeled with the patient's name and hospital number and A, are multiple fragments of kessler-white membranous tissue aggregating to 1.1 x 0.4 x 0.2 cm. Submitted in toto in one cassette. IAD H:Received in formalin, labeled with the patient's name and hospital number and B, is a fragment of kessler-pink membranous tissue measuring 1.5 x 1.5 x 0.2 cm. Submitted in toto in cassette. IAD Summary of Cassettes: Specimen Label Site C 1-4 right inferior parotid gland, submitted entirely (ill-defined area best represented in C2) D 1FS-10FS circumferential peripheral margin, clockwise from superior anterior to superior posterior, D1 to D4 from superior to inferior and D5-D10 from inferior to superior; D8 and D9 includes cartilage 11-12 anterior, logistics service representative sections 13-14 inferior, logistics service representative sections 15-16 posterior, logistics service representative sections 17-18 superior, logistics service representative sections 19-20 medial, logistics service representative sections 21 mass, logistics service representative section 22 lateral temporal bone, shaved margin 23 lateral temporal bone, logistics service representative sections nxj/06/20/2018 The assays/tests were performed with appropriate positive and negative controls which stained appropriately. Performed By: #### CS #### [facility] Surgical Pathology Department [address] [facility] [address] TYPE + SCREEN Collected: 06/19/2018 Status: CANCELLED Source: [place] 8:51 AM [facility]PITALS REPOSITORY Order Comment: TEST TYPE + SCREEN WAS CANCELLED, 06/20/2018 22:22 NO SPECIMEN RECEIVED IN LAB. TYPE CODE TESTS RESULT OUT OF REFERENCE UNITS RANGE LAB ABORH(LOIN C) ABO TYPE Canceled LAB RH(LOINC) RH TYPE Canceled LAB ABSC(LOINC ) ANTIBODY Canceled SCREEN Performed By: #### T+S #### [facility] [id number] [address] CT ORB L[facility] PFOS EAR Observed: 06/14/2018 Status: F Source: [facility] W/O CONTRAST 11:34 AM [facility] REPOSITORY Final Report Accession No: [id number] Performed: Jun 14 2018 11:34AM Examination: CT ORB LUDWIN PFOS EAR W/O CONTRAST EXAM: CT ORB LUD[place] PFOS EAR W/O CONTRAST CLINICAL STATEMENT: History of basal cell carcinoma. COMPARISON: CT neck with contrast 04/06/2008 TECHNIQUE: Multiple computerized tomographic images were performed through the temporal bones and skull base without utilizing any contrast. Coronal and sagittal reconstructed images were generated from the axial data set and reviewed. Dose reduction techniques were achieved by using automated exposure control and/or adjustment of mA and/or kV according to patient size and/or use of iterative reconstruction technique. FINDINGS: On the previous neck CT there was a necrotic spiculated lesion on the right. This lesion is reidentified and demonstrates interval growth. It measures 3.6 x 3.3 x 3.3 cm. It extends to the skin surface and there is evidence of soft tissue tracking from the lesion into the external auditory canal. It does not appear to erupt through the tympanic membrane at this time and the middle ear cavity is unremarkable. Some irregularity of the osseous portion of the external auditory canal is questioned. The temporomandibular joint is intact. There is also noted to be opacity within the right mastoid air cell which could be due to to outflow obstruction versus coexistent mastoiditis. On the left the external and middle ear cavities are normal and the mastoid air cells are well pneumatized. There is no soft tissue mass on the left. There is evidence of a previous left occipital craniotomy. IMPRESSION: 1. Increase in the size of the soft tissue mass on the left side of the head. The soft tissue component now appears to be extending into the external auditory canal. It now also extends to the skin surface. 2. Opacification within the right mastoid air cell could be due to outflow obstruction as well coexistent mastoiditis. Interpreting Physician: BRODY KUMAR D.O. Trans: sskees : cc: ESTABLISHED VISIT Observed: 06/11/2018 Status: UNK Source: [place] (OTOLARYNGOLOGY) 7:44 PM HOSPITALS REPOSITORY Chief Complaint Follow up visit referred by NF. History of Present Illness Ms. ARCADIO ROTH, is a 77 year old female followed by Dr. Lopez for right face/parotid basal cell carcinoma. Currently there are plans for combined surgery with HNS and neurotology for her right tempor al bone resection in conjunction with wide local excision, right parotidectomy, possible cervicofacial advancement versus submental versus supraclavicular flap. Currently she is taking tylenol for ear p ain and melatonin to help sleep at night. She denies ear infections and drainage. 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 She denies room spinning dizziness but has imbalance from periphera l neuropathy. Denies odynophagia, dysphagia. Tolerating a regular diet. Denies weight loss. No fevers/chills. No night sweats. She does have a mediport in the right neck. 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 Pedraza +BCC Review of Systems ENT and Constitutional systems have been reviewed and are negative for complaint except what is stated in the HPI and/or Past Medical History. Active Problems Basal cell carcinoma (BCC) of neck (173.41) (C44.41) Hearing loss (389.9) (H91.90) Past Medical History History of BPH (V13.89) (Z87.438) History of gastroesophageal reflux (GERD) (V12.79) (Z87.19) History of high cholesterol (V12.29) (Z86.39) Surgical History History of Craniotomy Excision Of Benign Cranial Bone Tumor History of Tonsillectomy Social History Caffeine use (V49.89) (Z78.9) Never a smoker No alcohol use No illicit drug use Person living alone (V60.3) (Z60.2) Retired (V61.07) (Z63.4) Allergies No Known Drug Allergies Recorded By: Tracey Kaur; 05/10/2018 1:48:36 PM Egg White Recorded By: Tracey Kaur; 05/10/2018 1:47:45 PM Current Meds AmLODIPine Besylate 5 MG Oral Tablet; Therapy: [id number] to Recorded Dispense: 90 Days ; #:90 TABS; Refill: 0; NILESH = N; Record; Last Updated By: Tracey Kaur; 05/10/2018 1:42:29 PM Gabapentin 300 MG Oral Capsule; Therapy: [id number] to Recorded Dispense: 90 Days ; #:90 CAPS; Refill: 0; NILESH = N; Record; Last Updated By: Tracey Kaur; 05/10/2018 1:42:50 PM Gemfibrozil 600 MG Oral Tablet; Therapy: [id number] to Recorded Dispense: 90 Days ; #:180 TABS; Refill: 0; NILESH = N; Record; Last Updated By: Tracey Kaur; 05/10/2018 1:43:23 PM Omeprazole 20 MG Oral Capsule Delayed Release; Therapy: [id number] to Recorded Dispense: 90 Days ; #:90 CPDR; Refill: 0; NILESH = N; Record; Last Updated By: Tracey Kaur; 05/10/2018 1:43:35 PM Rosuvastatin Calcium 5 MG Oral Tablet; Therapy: [id number] to Recorded Dispense: 90 Days ; #:90 TABS; Refill: 0; NILESH = N; Record; Last Updated By: Tracey Kaur; 05/10/2018 1:44:09 PM Vitals Vital Signs Recorded: [id number] 01:43PM Heart Rate70 Cbeofufs855 Ihqljjbtt79 Height5 ft 9 in Smxqdd827 lb BMI Jqaooerikz71.45 BSA Calculated1.84 Physical Exam Constitutional: General appearance: Healthy appearing, well-nourished, well groomed. No acute distress. Communication: Normal communication without aids or christian education director, normal voice quality. No hoarseness, stridor or stertor. Psychiatric: Oriented to person, place and time. Normal mood and affect. Neurologic: Cranial nerves II-XII grossly intact and symmetric bilaterally. Specifically her facial nerve has symmetric and strong movement in all divisions on the right. 1/6 bilaterally Head and Face: Head: Atraumatic with no masses, lesions or scarring. Face: Normal symmetry, no paralysis, synkinesis or facial tic. No scars or deformities. Sinuses: Palpation of the face revealed no sinus tenderness Salivary glands: Firm mass involving the right preauricular area and parotid and invading the tragus and anterior right EAC with stenosis of the eac. No erosin coming through the skin but anterior wall of the EAC is full extending toward the BC junction TMJ: Normal, no trismus. Eyes: Conjunctiva not edematous or erythematous Ears: Preauricular area firm and full pushing into the right EAC. Otoscopic examination: right auditory canal stenotic from the mass effect left eac clear with tm intact without effusion Nose: External inspection of nose: No nasal lesions, lacerations or scars. Septum midline. No inferior turbinate hypertrophy. Patent with good air entry bilaterally. Oral Cavity/Mouth Lips, teeth, and gums: Normal lips, gums, and dentition. Oropharynx: Mucosa moist, no lesions. Hard and soft palate normal. Tongue normal, no lesions or edema. Tonsils normal, no lesions. Neck: She has a firm area in right level II, no discrete lymphadenopathy, no other masses. Thyroid: Symmetrical, no enlargement, no tenderness, no nodules. Lymphatic: No palpable cervical lymphadenopathy, no submandibular lymphadenopathy, no supraclavicular lymphadenopathy. Cardiovascular: Examination of peripheral vascular system shows no clubbing or cyanosis. Respiratory: No respiratory distress increased work of breathing. Inspection of the chest with symmetric chest expansion and normal respiratory effort. Skin: No rashes in the head or neck Results/Data I personally reviewed the CT scan from 04/06 reviewed with a lesion involving the right preauricular area that is extending to the right TMJ unclear involvement of the right bony EAC given limitations of the imaging. I personally reviewed the audogram from June 06 which demonstrates a profound hearing loss in the right ear. there is normal thresholds in the left ear. Diagnoses/Problems Basal cell carcinoma (BCC) of neck (173.41) (C44.41) Pain, cancer (338.3) (G89.3) Orders CT IAC without Contrast; Status:Hold For - Scheduling; Requested for:[id number]; Perform:[facility] Radiology Services Imaging; Due:13Hlo2010;Ordered; For:Basal cell carcinoma (BCC) of neck; Ordered By:Kelli Kim; Radiologist to Determine Optimal Study : Y What are the patient's signs and symptoms? : right basal cell ca erosion to the eac Start: TraMADol HCl - 50 MG Oral Tablet; TAKE 1 TABLET EVERY 4 TO 6 HOURS NEEDED FOR PAIN Rx By: Kelli Kim; Dispense: 5 Days ; #:30 Tablet; Refill: 0;For: Pain, cancer; NILESH = N; Print Rx Provider Impressions 77 year old female patient with h/o right neck xrt and lymphoma with basal cell carcinoma of the right preauricular tissues. At this time we recommend surgical resection. Per plans with Dr. Lopez we ag ain discussed wide local excision with right parotidectomy and right temporal bone resection with hemiauriculectomy. Dr. Lopez will the reconstruct with cervicofacial advancement flap, supraclavicular flap, submental island flap. Risks, benefits and alternatives were discussed at length regarding the above procedure. We discussed hearing rehabilitation but she is not interested in pursing this furthe r as she is adjusted to the hearing loss she experienced after her radiation. Patient Discussion/Summary Welcome to Dr. Nunn clinic. We are here to assist you through your ENT care at [facility]. Dr. Kim is an Ear surgeon. This means that she specializes in taking care of patients with complex ear problems. Dr. Kim's office number is [phone]. While you may see her at a satellite office, she has a team committed to help meet your healthcare needs at [facility]'s main campus. This number is t he most direct way to communicate with the office. Cindi is Dr. Nunn secretary to the vice president and she answers the office phone from 8am-4pm Tue-Tue. She can help you with many general questions and information. Questions that she cannot answer will be directed to [facility] appropriate staff. You may need to leave a message. In this case, someone from the team will call you back. Donna is Dr. Nunn primary nurse and can be reached by calling the office. Donna is in clinic with Dr. Nunn on Mondays, Tuesdays, most Wednesdays, and . Non-urgent calls will be returned o n non-clinic days typically Fridays. Sometimes, other team members will also be involved in your care. These people may include dieticians, social workers, speech therapists, fish hatchery supervisor, neurologist, and physical therapist. Dr. Kim will provide these referrals as needed. Please let her know if you would like to request a specific referral. For your convenience, Dr. Kim sees patients at several [facility] locations including [facility], [facility], and [facility] at the main [facility]. While we try to make your appointments as convenient as possible, occasionally a visit to another location may be necessary to provide the best care for you. We look forward to working with you to meet your healthcare goals. Dr. Kim makes every effort to run on time for your appointments. Therefore, if you are more than 30 minutes late unrelated to a scan or another appointment such therapy or audio. End of Encounter Meds AmLODIPine Besylate 5 MG Oral Tablet; Therapy: 20Sep2017 to Recorded Gabapentin 300 MG Oral Capsule; Therapy: 75Gle0487 to Recorded Gemfibrozil 600 MG Oral Tablet; Therapy: 16Aic2106 to Recorded Omeprazole 20 MG Oral Capsule Delayed Release; Therapy: 64Udr0473 to Recorded Rosuvastatin Calcium 5 MG Oral Tablet; Therapy: 23Sep2017 to Recorded TraMADol HCl - 50 MG Oral Tablet; TAKE 1 TABLET EVERY 4 TO 6 HOURS NEEDED FOR PAIN; Therapy: 59Bgl2576 to (Evaluate:52Lzj5476); Last Rx:[id number] Ordered Signatures Electronically signed by : Kelli Kim MD; Jun 11 2018 7:44PM EST (Author) OFFICE VISIT Observed: 06/06/2018 Status: UNK Source: [facility] (AUDIOLOGY) 5:18 PM HOSPITALS REPOSITORY Chief Complaint hearing loss with ENT Reference Documentation See scanned note :Audiogram. History of Present Illness Arcadio Roth, age 77 years, was seen today for a hearing evaluation in conjunction with an otologic examination with Dr. Kim. Arcadio presents with history of hearing loss with her right being worse wesley n her left ear due to radiation. She reports occasional tinnitus in the right ear, aural fullness and ear pain. No past ear surgeries. Arcadio reports plans for combined surgery with Dr. Lopez and ENT for temporal bone resection. Results/Data Otoscopy revealed clear ear canal with visualization of the tympanic membrane in the left ear. Ear drum could not be visualized in the right ear due to narrow ear canal and patient reporting pain. Tympanometry: Right Ear: Could not test Left Ear: Type A tympanogram with normal mobility Ipsilateral Acoustic Reflexes: Right Ear: Could not test Left Ear: Present from 500-4000 Hz. Behavioral Hearing Evaluation conducted using TDH headphones: Right Ear: Severe to profound mixed hearing loss. Poor word recognition ability, 24%. Left Ear: Mild to moderate sensorineural hearing loss. Excellent word recognition ability, 100%. Speech recognition thresholds were obtained down to 85 dB HL in the right ear and 35 dB HL in the left ear. Thresholds are in agreement with pure tone averages suggesting good test reliability. appointment time: [id number] Diagnoses/Problems Sensorineural hearing loss (SNHL) of left ear with restricted hearing of right ear (389.22) (H90.A22) Mixed conductive and sensorineural hearing loss of right ear with restricted hearing of left ear (389.22) (H90.A31) Patient Discussion/Summary Results from today's evaluation were explained to Arcadio. Hearing in the left ear revealed mild to moderate sensorineural hearing loss and in the right ear a severe to profound hearing loss. Treatment plan: 1. Follow up with Dr. Kim as directed 2. Retest hearing in coordination with otologic care. End of Encounter Meds AmLODIPine Besylate 5 MG Oral Tablet; Therapy: 20Sep2017 to Recorded Gabapentin 300 MG Oral Capsule; Therapy: 15Aug2017 to Recorded Gemfibrozil 600 MG Oral Tablet; Therapy: 26Jul2017 to Recorded Omeprazole 20 MG Oral Capsule Delayed Release; Therapy: 26Jul2017 to Recorded Rosuvastatin Calcium 5 MG Oral Tablet; Therapy: 23Sep2017 to Recorded TraMADol HCl - 50 MG Oral Tablet; TAKE 1 TABLET EVERY 4 TO 6 HOURS NEEDED FOR PAIN; Therapy: 56Fjd2843 to (Evaluate:37Iaw2196); Last Rx:[id number]; Status: ACTIVE - Retrospective By Protocol Authorization Ordered Signatures Electronically signed by : Rimma Delgado, ; Jun 06 2018 3:11PM EST (Author) Electronically signed by : Karri Olsen; Jun 06 2018 5:18PM EST (Author) ESTABLISHED VISIT Observed: 05/29/2018 Status: UNK Source: [place] (OTOLARYNGOLOGY) 6:04 PM HOSPITALS REPOSITORY Chief Complaint basal cell carcinoma History of Present Illness Ms. ARCADIO ROTH, is a 77 year old female following up with me for further surgical discussion regarding her right face/parotid basal cell carcinoma. Since last visit we have been arranging for combined surgery with my neurotology partners for her right temporal bone resection in conjunction with wide local excision, right parotidectomy, possible cervicofacial advancement versus submental versus supra clavicular flap. No change since last visit. Denies odynophagia, dysphagia. Tolerating a regular diet. Denies weight loss. No fevers/chills. No night sweats. She reports minimal hearing from her right ear which she was told would never return after radiation, told to never get hearing aid on the right ear because it wouldn't help. She does feel that her hear ing is worse than her usual bad baseline on the right. 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 Pedraza +BCC SH: Tob: Never ETOH: Denies Here with family member Review of Systems all other systems have been reviewed and are negative for complaint. Active Problems Basal cell carcinoma (BCC) of neck (173.41) (C44.41) Hearing loss (389.9) (H91.90) Past Medical History History of BPH (V13.89) (Z87.438) History of gastroesophageal reflux (GERD) (V12.79) (Z87.19) History of high cholesterol (V12.29) (Z86.39) Surgical History History of Craniotomy Excision Of Benign Cranial Bone Tumor History of Tonsillectomy Social History Caffeine use (V49.89) (Z78.9) Never a smoker No alcohol use No illicit drug use Person living alone (V60.3) (Z60.2) Retired (V61.07) (Z63.4) Allergies No Known Drug Allergies Recorded By: Tracey Kaur; 05/10/2018 1:48:36 PM Egg White Recorded By: Tracey Kaur; 05/10/2018 1:47:45 PM Current Meds AmLODIPine Besylate 5 MG Oral Tablet; Therapy: 20Sep2017 to Recorded Dispense: 90 Days ; #:90 TABS; Refill: 0; NILESH = N; Record; Last Updated By: Tracey Kaur; 05/10/2018 1:42:29 PM Gabapentin 300 MG Oral Capsule; Therapy: 52Ykt1031 to Recorded Dispense: 90 Days ; #:90 CAPS; Refill: 0; NILESH = N; Record; Last Updated By: Tracey Kaur; 05/10/2018 1:42:50 PM Gemfibrozil 600 MG Oral Tablet; Therapy: 31Dfg6862 to Recorded Dispense: 90 Days ; #:180 TABS; Refill: 0; NILESH = N; Record; Last Updated By: Tracey Kaur; 05/10/2018 1:43:23 PM Omeprazole 20 MG Oral Capsule Delayed Release; Therapy: 08Hbc2499 to Recorded Dispense: 90 Days ; #:90 CPDR; Refill: 0; NILESH = N; Record; Last Updated By: Tracey aKur; 05/10/2018 1:43:35 PM Rosuvastatin Calcium 5 MG Oral Tablet; Therapy: 23Sep2017 to Recorded Dispense: 90 Days ; #:90 TABS; Refill: 0; NILESH = N; Record; Last Updated By: Tracey Kaur; 05/10/2018 1:44:09 PM Vitals Vital Signs Recorded: 84Ybo4342 04:10PM Etxxmnswkax57.9 F Heart Rate71 Awftoeqa688 Ctfsdbdsd72 Height5 ft 9 in Ijrjcv256 lb BMI Lojrpurhtl02.18 BSA Calculated1.86 Physical Exam Constitutional: General appearance: Healthy appearing, well-nourished, well groomed. No acute distress. Communication: Normal communication without aids or christian education director, normal voice quality. No hoarseness, stridor or stertor. Psychiatric: Oriented to person, place and time. Normal mood and affect. Neurologic: Cranial nerves II-XII grossly intact and symmetric bilaterally. Specifically her facial nerve has symmetric and strong movement in all divisions on the right. Head and Face: Head: Atraumatic with no masses, lesions or scarring. Face: Normal symmetry, no paralysis, synkinesis or facial tic. No scars or deformities. Sinuses: Palpation of the face revealed no sinus tenderness Salivary glands: She has a firm mass which is located in the right preauricular area which involves the EAC on the right and is resulting in some stenosis of the right EAC although I can get past this a reji. The mass in not coming through the skin, not visible on the skin but does feel to be attached to the skin. Non-tender, firm. TMJ: Normal, no trismus. Eyes: Conjunctiva not edematous or erythematous Ears: Preauricular area firm and full; with mass plus radiation changes as described above. Otoscopic examination: right auditory canal stenotic from the mass effect, with a small speculum I can get bey ond this area and the EAC is not directly involved, this opens more distally and the right TM does appear to have +middle ear effusion. Nose: External inspection of nose: No nasal lesions, lacerations or scars. Septum midline. No inferior turbinate hypertrophy. Patent with good air entry bilaterally. Oral Cavity/Mouth: No masses, lesions or ulcers along the lips, gingival or buccal mucosa. Floor of the mouth is soft without edema or masses. Teeth in fair condition. No masses, lesions or ulcers along the tongue. Oral cavity and oropharynx mucosa moist. Hard and soft palate intact and symmetric with no masses or lesions. Posterior oropharynx patent. Palate, posterior pharyngeal bee and tonsils nor mal, symmetric with no masses, lesions or ulcers. Neck: She has a firm area in right level II which correlates to the calcified area on her CT scan, no discrete lymphadenopathy, no other masses. She does have skin laxity on her neck consistent with age Thyroid: Symmetrical, no enlargement, no tenderness, no nodules. Lymphatic: No palpable cervical lymphadenopathy, no submandibular lymphadenopathy, no supraclavicular lymphadenopathy. Cardiovascular: Examination of peripheral vascular system shows no clubbing or cyanosis. Respiratory: No respiratory distress increased work of breathing. Inspection of the chest with symmetric chest expansion and normal respiratory effort. Skin: No rashes in the head or neck Diagnoses/Problems Basal cell carcinoma (BCC) of neck (173.41) (C44.41) Hearing loss (389.9) (H91.90) Provider Impressions Ms. ARCADIO ROTH, is here for follow up treatment discussion for her basal cell carcinoma of the right preauricular tissues. She is at high risk having undergone previous radiation to this area due to a history of tonsillar non-Hodgkin's lymphoma in 1999. She also had a basal cell carcinoma which was removed from her skin surface approximately 2 years ago and I do not have any information regarding ma rgins. It's possible there was a deep margin that was positive and this current mass may have arisen from that. There is no evidence of a skin lesion at this time but the lesion is just beneath the skin . This will require surgical resection. We discussed wide local excision with right parotidectomy and right temporal bone resection (discussed possible hemiauriculectomy) with reconstruction via cervico facial advancement flap, supraclavicular flap, submental island flap which were all discussed with the patient today. Risks, benefits and alternatives were discussed at length regarding the above proced ure(s). I did explain the diagnosis, possible alternative diagnoses, and the plans for evaluation and treatment of the problem. I answered all of the patients questions. They did appear to understand an d confirmed this, and do agree to proceed as outlined above. I am will referring her to my otology colleague, Dr. Kim for audiogram and ear evaluation for assistance with the otologic portion. I spent 25 minutes with ARCADIO ROTH. Greater than 50% of this time was spent in counseling and/or coordination of care. Patient Discussion/Summary .. End of Encounter Meds AmLODIPine Besylate 5 MG Oral Tablet; Therapy: 20Sep2017 to Recorded Gabapentin 300 MG Oral Capsule; Therapy: [id number] to Recorded Gemfibrozil 600 MG Oral Tablet; Therapy: 26Jul2017 to Recorded Omeprazole 20 MG Oral Capsule Delayed Release; Therapy: 26Jul2017 to Recorded Rosuvastatin Calcium 5 MG Oral Tablet; Therapy: 23Sep2017 to Recorded Signatures Electronically signed by : Sharad Lopez MD; May 29 2018 6:04PM EST (Author) Reviewed by : Kelli Kim MD; Jun 06 2018 9:17AM EST CBC Collected: 05/29/2018 Status: F Source: [place] 4:08 [facility] REPOSITORY TYPE CODE TESTS RESULT OUT OF REFERENCE UNITS RANGE LAB WBCR(LOINC 4.4 - 11.3 x10E9/L ) WBC 6.9 LAB NRBC(LOINC 0.0-0.0 /100 WBC ) NUCLEATED RBC 0.0 LAB RBCCT(LOIN 4.00 - 5.20 x10E12/L C) RBC 4.70 LAB HGB(LOINC) 12.0 - 16.0 g/dL HGB 13.8 LAB HCT(LOINC) 36.0 - 46.0 % HCT 42.1 LAB MCV(LOINC) 80 - 100 fL MCV 90 LAB MCHC2(LOIN 32.0 - 36.0 g/dL C) MCHC 32.8 LAB PLTCT(LOIN 150 - 450 x10E9/L C) Low PLT 130 LAB RDWCV(LOIN 11.5 - 14.5 % C) RDW-CV 13.9 Performed By: #### CBC #### [facility] [address] [place] [address] COAGULATION SCREEN Collected: 05/29/2018 Status: F Source: [place] 4:08 [facility] REPOSITORY TYPE CODE TESTS RESULT OUT OF REFERENCE UNITS RANGE LAB PT(LOINC) 9.8 - 12.7 sec PROTHROMBIN TIME 10.8 LAB INR(LOINC) 0.9 - 1.1 PT, INR 1.0 LAB APTT(LOINC 25 - 36 sec ) APTT 31 Result Comment: THE APTT IS NO LONGER USED FOR MONITORING UNFRACTIONATED HEPARIN THERAPY. FOR MONITORING HEPARIN THERAPY, USE THE HEPARIN ASSAY. Performed By: #### COAGS #### [facility] [address] [place] [address] BASIC METABOLIC PANEL Collected: 05/29/2018 Status: F Source: [place] 4:08 [facility] REPOSITORY TYPE CODE TESTS RESULT OUT OF RANGE REFERENCE UNITS LAB GLU(LOINC) 74 - 99 mg/dL GLUCOSE 77 LAB SOD(LOINC) 136 - 145 mmol/L SODIUM 141 LAB K(LOINC) 3.5 - 5.3 mmol/L POTASSIUM 4.3 LAB CHLOR(LOIN 98 - 107 mmol/L C) CHLORIDE 103 LAB BIC(LOINC) 21 - 32 mmol/L BICARBONATE 29 LAB ANGAP(LOIN 10 - 20 mmol/L C) ANION GAP 13 LAB UREA(LOINC 6 - 23 mg/dL ) UREA NITROGEN 19 LAB CREA(LOINC 0.50 - 1.05 mg/dL ) CREATININE 1.02 LAB GFRFN(LOIN >60 mL/min/1.7 C) 3m2 GFR-NON Abnormal AM. 53 LAB GFRAA(LOIN >60 mL/min/1.7 C) 3m2 GFR- AM. 64 Result Comment: CALCULATIONS OF ESTIMATED GFR ARE PERFORMED USING THE MDRD STUDY EQUATION FOR THE IDMS-TRACEABLE CREATININE METHODS. CLIN CHEM 2007;53:766-72 LAB CA(LOINC) 8.6 - 10.6 mg/dL CALCIUM 9.5 Performed By: #### BMP #### [facility] [address] [place] [address] TYPE + SCREEN Collected: 05/29/2018 Status: F Source: [place] 4:08 [facility] REPOSITORY TYPE CODE TESTS RESULT OUT OF REFERENCE UNITS RANGE LAB ABORH(LOINC ) ABO TYPE A LAB RH(LOINC) RH TYPE POS LAB ABSC(LOINC) ANTIBODY NEG SCREEN Performed By: #### T+S #### [facility] [address] [place] [address] [facility] SURGICAL PATHOLOGY Observed: 05/12/2018 Status: F Source: [facility] 12:00 AM HOSPITALS REPOSITORY Pathologist: DARÍO WELCH MD Date of Procedure: 05/12/2018 Date Received: 05/12/2018 Date Reported: 05/16/2018 Submitting Physician: SHARAD LOPEZ MD Location: [facility] Copy To/Referring/Attending: JOHN PEDRAZA SR., M.D. FINAL DIAGNOSIS [facility], [id number] (05/01/2018; 1 H AND E slide and 1 block): A. PREAURICULAR SKIN LESION: -- BASAL CELL CARCINOMA, NODULAR TYPE, PRESENT AT ALL MARGINS OF RESECTION. Electronically Signed Out By DARÍO WELCH MD/STS By the signature on this report, the individual or group listed as making the Final Interpretation/Diagnosis certifies that they have reviewed this case. Clinical History: {Not Provided} Specimens Submitted As: A: [facility] [id number] (05/01/2018) Slide/Block Description Received from [facility], Dept of Pathology, [address] [place] [address], [facility], are 1 slide labeled [id number] and 1 block labeled [id number]. Keep Slides: N Slides Returned: N Personal Consult: N Performed By: #### [facility] #### [facility] Surgical Pathology Department [address] [address] INITIAL VISIT Observed: 05/10/2018 Status: UNK Source: [place] (OTOLARYNGOLOGY) 5:42 PM HOSPITALS REPOSITORY Chief Complaint basal cell carcinoma History of Present Illness Ms. ARCADIO ROTH, is a 77 year old female referred to me today by Dr. John Pedraza for further evaluation and treatment of basal cell carcinoma of the right face. She has a history of tonsillar non Hodg kin's lymphoma which was treated with head radiation approximately 20 yrs ago. She had a recurrence of her lymphoma 6 years ago treated with chemotherapy alone (no further radiation). 2 years ago preaur icular basal cell carcinoma was excised (no information available regarding margins). She has a 6-7 week history of right sided facial pain and right preauricular mass. She has visited five doctors for this, ultimately she was seen by Dr Mejias. He performed a biopsy 05/01/18 +basal cell cancer. Therefore he referred her to me. Denies odynophagia, dysphagia or otalgia. Tolerating a regular diet. Denies weight loss. No fevers/chills. No night sweats. She reports minimal hearing from her right ear which she was told would never return after radiation, told to never get hearing aid on the right ear arvin use it wouldn't help. She does feel that her hearing is worse than her usual bad baseline on the right. She comes today with a CD of her CT neck with contrast which was obtained 04/06/18. This shows a partially necrotic, heterogeneous mass in the right preauricular soft tissues. I do not have access to pre vious imaging but the radiologist comments that a previous CT neck from 10/31/17 shows this mass but it was much smaller at that time. 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 Pedraza +BCC I have personally reviewed PMH (GERD, HTN, high cholesterol), PSH (h/o brain tumor s/p excision 1997), FH (reviewed and not pertinent to the presenting complaint except as noted above) and SH which are provided in the attached Adult Patient Questionnaire which is scanned into the electronic medical record. SH: Tob: Never ETOH: Denies Here with family member Review of Systems all other systems have been reviewed and are negative for complaint. Past Medical History History of BPH (V13.89) (Z87.438) History of gastroesophageal reflux (GERD) (V12.79) (Z87.19) History of high cholesterol (V12.29) (Z86.39) Surgical History History of Craniotomy Excision Of Benign Cranial Bone Tumor History of Tonsillectomy Social History Never a smoker No alcohol use Person living alone (V60.3) (Z60.2) Retired (V61.07) (Z63.4) Allergies No Known Drug Allergies Recorded By: Tracey Kaur; 05/10/2018 1:48:36 PM Egg White Recorded By: Tracey Kaur; 05/10/2018 1:47:45 PM Current Meds AmLODIPine Besylate 5 MG Oral Tablet; Therapy: 20Sep2017 to Recorded Dispense: 90 Days ; #:90 TABS; Refill: 0; NILESH = N; Record; Last Updated By: Tracey Kaur; 05/10/2018 1:42:29 PM Gabapentin 100 MG Oral Capsule; Therapy: [id number] to Recorded Dispense: 90 Days ; #:90 CAPS; Refill: 0; NILESH = N; Record; Last Updated By: Tracey Kaur; 05/10/2018 1:42:50 PM Gabapentin 300 MG Oral Capsule; Therapy: [id number] to Recorded Dispense: 90 Days ; #:90 CAPS; Refill: 0; NILESH = N; Record; Last Updated By: Tracey Kaur; 05/10/2018 1:42:50 PM Gemfibrozil 600 MG Oral Tablet; Therapy: [id number] to Recorded Dispense: 90 Days ; #:180 TABS; Refill: 0; NILESH = N; Record; Last Updated By: Tracey Kaur; 05/10/2018 1:43:23 PM Omeprazole 20 MG Oral Capsule Delayed Release; Therapy: [id number] to Recorded Dispense: 90 Days ; #:90 CPDR; Refill: 0; NILESH = N; Record; Last Updated By: Tracey Kaur; 05/10/2018 1:43:35 PM Rosuvastatin Calcium 5 MG Oral Tablet; Therapy: [id number] to Recorded Dispense: 90 Days ; #:90 TABS; Refill: 0; NILESH = N; Record; Last Updated By: Tracey Kaur; 05/10/2018 1:44:09 PM Physical Exam Constitutional: General appearance: Healthy appearing, well-nourished, well groomed. No acute distress. Communication: Normal communication without aids or christian education director, normal voice quality. No hoarseness, stridor or stertor. Psychiatric: Oriented to person, place and time. Normal mood and affect. Neurologic: Cranial nerves II-XII grossly intact and symmetric bilaterally. Specifically her facial nerve has symmetric and strong movement in all divisions on the right. Head and Face: Head: Atraumatic with no masses, lesions or scarring. Face: Normal symmetry, no paralysis, synkinesis or facial tic. No scars or deformities. Sinuses: Palpation of the face revealed no sinus tenderness Salivary glands: She has a firm mass which is located in the right preauricular area which involves the EAC on the right and is resulting in some stenosis of the right EAC although I can get past this a reji. The mass in not coming through the skin, not visible on the skin but does feel to be attached to the skin. Non-tender, firm. TMJ: Normal, no trismus. Eyes: EOMI, PERRL, conjunctiva not edematous or erythematous Ears: Preauricular area firm and full; with mass plus radiation changes as described above. Otoscopic examination: right auditory canal stenotic from the mass effect, with a small speculum I can get bey ond this area and the EAC is not directly involved, this opens more distally and the right TM does appear to have +middle ear effusion. Nose: External inspection of nose: No nasal lesions, lacerations or scars. Septum midline. No inferior turbinate hypertrophy. Patent with good air entry bilaterally. Oral Cavity/Mouth: No masses, lesions or ulcers along the lips, gingival or buccal mucosa. Floor of the mouth is soft without edema or masses. Teeth in fair condition. No masses, lesions or ulcers along the tongue. Oral cavity and oropharynx mucosa moist. Hard and soft palate intact and symmetric with no masses or lesions. Posterior oropharynx patent. Palate, posterior pharyngeal bee and tonsils nor mal, symmetric with no masses, lesions or ulcers. Neck: She has a firm area in right level II which correlates to the calcified area on her CT scan, no discrete lymphadenopathy, no other masses. She does have skin laxity on her neck consistent with age Thyroid: Symmetrical, no enlargement, no tenderness, no nodules. Lymphatic: No palpable cervical lymphadenopathy, no submandibular lymphadenopathy, no supraclavicular lymphadenopathy. Cardiovascular: Examination of peripheral vascular system shows no clubbing or cyanosis. Respiratory: No respiratory distress increased work of breathing. Inspection of the chest with symmetric chest expansion and normal respiratory effort. Skin: No rashes in the head or neck Results/Data Summarized history and recent workup and imaging I personally reviewed available images with my findings as documented above in the HPI. I personally reviewed available pathology with my findings as documented above in the HPI. Diagnoses/Problems Basal cell carcinoma (BCC) of neck (173.41) (C44.41) Provider Impressions Ms. ARCADIO ROTH, is here for an initial consultation of basal cell carcinoma of the right preauricular tissues. She is at high risk having undergone previous radiation to this area due to a history of tonsillar non-Hodgkin's lymphoma in 1999. 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 It's possible there was a deep margin that was positive and this current mass may have arisen from that. There is no evidence of a skin lesion at this time but the lesion is just beneath the skin. This will require surgical resection. We discussed wide local excision with right parotidectomy and resection of the right EAC (possible right temporal bone resection) with reconstruction via cervicofacial advanc ement flap, supraclavicular flap, submental island flap which were all discussed with the patient today. Risks, benefits and alternatives were discussed at length regarding the above procedure(s). I did explain the diagnosis, possible alternative diagnoses, and the plans for evaluation and treatment of the problem. I answered all of the patients questions. They did appear to understand and confirmed t his, and do agree to proceed as outlined above. I am will referring her to my otology colleague, Dr. Rodriguez for audiogram and ear evaluation for assistance with the otologic portion. Will schedule for p re-operative testing and optimization. Follow up for further discussion regarding surgery and reconstruction. Patient Discussion/Summary Dear Ms. ARCADIO ROTH, Welcome to [facility], Dr. Lopez is a Head and neck Surgeon. This means that she specializes in caring for patients with complex head and neck problems such as cancer, however,you may be seeing her for another reason. Dr. Lopez's office number is [phone]. While you may see her at a satellite office, she has a team committed to help meet your healthcare needs at [facility]'s main campus. This number lis gertrude, is the most direct way to communicate with her office. Dr. Lopez's secretary to the vice president answers the office phone from 8am-4pm Tuesday-Tuesday. She can help you with many general questions and information. Questions that she may not be able to answer will be directed to the appropriate staff. You may need to leave a message and someone from the team will call you back. Korin is Dr. Lopez's primary nurse. She can be reached by calling the office as well. Korin is in clinic on Mondays, Wednesdays, and , and out of the office on . If you are in need of immediate assistance on , another nurse will be covering Korin. Non Urgent calls will be returned within 24 hours of the call. Sometimes, other team members will also be involved in your care. These people may include dieticians, social workers, speech therapists, medical oncologists, or radiation oncologists. Dr. Lopez will p rovide these referrals for you as needed. For your connivence, Dr. Lopez sees patients at several [facility] locations. These locations are [facility], [facility], and [facility]. While we try to make your appointment as convenient as possible, occasionally a visit to another location may be necessary to provide you with the best care. We look forward to working with you to meet your healthcare goals. Dr. Lopez evaluated you today. She did not see anything concerning today. Your care plan is outlined below: -- you need to see the clinical research spec -- Dr. Lopez recommended that we schedule surgery. Dr. Lopez's nurse, Korin, provided you with additional instructions for your surgery. -- Follow up with Dr. Lopez 2 weeks after surgery. This appointment was scheduled at the end of your visit today. If you need to reschedule, please call the office at [phone]. Please keep in mind that last minute cancellations will often result in delayed follow-up appointments and this is not advised after surgery. --Family Medical Leave paperwork is available through your human resources department. Please call your human resources department to obtain the paperwork. You must allow up to two weeks for paperwork t o be completed. You will need to fill out a portion of the paperwork before faxing it to our office for completion. In addition, indicate what kind of leave you are requesting (intermittent or continuou s) and how long you are requesting the leave extend. Please fax the paperwork to [phone]. Dr. Lopez makes every effort to run on time for your appointments. Therefore, if you are more than 20 minutes late for your appointment, unrelated to a scan or another appointment such as chemotherapy or radiation, your appointment will need to be rescheduled to another day. We appreciate your understanding. End of Encounter Meds AmLODIPine Besylate 5 MG Oral Tablet; Therapy: [id number] to Recorded Gabapentin 100 MG Oral Capsule; Therapy: [id number] to Recorded Gabapentin 300 MG Oral Capsule; Therapy: [id number] to Recorded Gemfibrozil 600 MG Oral Tablet; Therapy: [id number] to Recorded Omeprazole 20 MG Oral Capsule Delayed Release; Therapy: [id number] to Recorded Rosuvastatin Calcium 5 MG Oral Tablet; Therapy: [id number] to Recorded Signatures Electronically signed by : Sharad Lopez MD; May 10 2018 5:42PM EST (Author) Reviewed by : Nikki Rodriguez MD; May 18 2018 9:59AM EST CBC WITH DIFF Collected: 05/01/2018 Status: F Source: [facility] 11:06 AM [facility] TYPE CODE TESTS RESULT OUT OF RANGE REFERENCE UNITS LAB WBC 3.4-10.6 K/mcL WBC Normal 6.6 LAB RBC 3.7-5.0 M/mcL RBC Normal 4.50 LAB HGB 11.6-15.4 g/dL Normal Hemoglobin 13.6 LAB HCT 34.4-44.8 % Normal Hematocrit 39.0 LAB MCV 82.6-98.9 FL MCV Normal 86.8 LAB MCH 27.9-33.9 pg MCH Normal 30.2 LAB MCHC 33.1-35.1 g/dL MCHC Normal 34.8 LAB RDW 10.0-14.4 % RDW Normal 14.1 LAB PLT 162-402 K/mcL Low Platelet Count 102 LAB MPV 7.0-10.6 FL MPV Normal 7.2 LAB NEUT# 1.2-6.9 K/mcL Normal Neutrophil # 5.1 LAB LYMPH# 1.0-3.7 K/mcL Normal Lymphocyte # 1.0 LAB MONO# 0.1-0.6 K/mcL Monocyte Normal # 0.4 LAB EOS# 0-0.5 K/mcL Normal Eosinophil # 0.1 LAB BASO# 0-0.2 K/mcL Basophil Normal # 0.0 LAB SEGNEU% % Normal Segmented Neut % 77.5 LAB LYMP% % Normal Lymphocyte% 14.5 LAB MO% % Monocyte Normal % 6.2 LAB EO% % Normal Eosinophil % 1.3 LAB BA% % Basophil Normal % 0.5 Performed By: #### HEPF, CHEM8, TSH, CBCDIF, LIPID #### Unless otherwise noted, all testing performed by [facility] [address] [place], [place] [address] CLIA: [id number] Local Truck Driver: Alvino Chandler M.D. BASIC METABOLIC PANEL Collected: 05/01/2018 Status: F Source: [facility] 11:06 AM [facility] TYPE CODE TESTS RESULT OUT OF REFERENCE UNITS RANGE LAB GLU 70-99 mg/dL High Glucose 110 Result Comment: This test result might be falsely depressed or falsely elevated on samples drawn from patients taking Sulfasalazine and Sulfapyridine. Venipuncture should occur prior to taking either of these drugs. LAB BUN 8-25 mg/dL BUN 22 LAB CREA 0.60-1.20 mg/dL Creatinine 0.90 LAB eGFR ml/min/1.73sq .m eGFR,NonAfrican-Am erican >=60 Result Comment: Non- GFR Calc eGFR is an estimated Glomerular Filtration Rate based on the value of the patient's serum creatinine. In outpatients, eGFR should be used as a helpful tool in screening for CKD. In inpatients or patients with acute renal failure, eGFR represents the GFR at the moment of the draw and should be used with caution. LAB eGFRB ml/min/1.73sq.m eGFR, -Romanian >=60 Result Comment: GFR Calc LAB CALCM 8.4-10.2 mg/dL Calcium Low 8.3 LAB NA 135-145 mmol/L Sodium 137 LAB K 3.5-5.1 mmol/L Potassium 4.1 LAB CL 98-108 mmol/L Chloride 105 LAB CO2 21-32 mmol/L CO2 28 Performed By: #### HEPF, CHEM8, TSH, CBCDIF, LIPID #### Unless otherwise noted, all testing performed by [place] [address] CLIA: [id number] Local Truck Driver: Alvino Chandler M.D. TSH Collected: 05/01/2018 Status: F Source: [facility] 11:06 AM [facility] TYPE CODE TESTS RESULT OUT OF RANGE REFERENCE UNITS LAB TSH 0.320-5.000 uIU/mL Normal TSH 2.61 Result Comment: Samples from patients routinely receiving high dose biotin therapy (100-300 mg/day) may show falsely decreased results. Please correlate clinically. Performed By: #### HEPF, CHEM8, TSH, CBCDIF, LIPID #### Unless otherwise noted, all testing performed by [place] [address] CLIA: [id number] Local Truck Driver: Alvino Chandler M.D. HEPATIC FUNCTION Collected: 05/01/2018 Status: F Source: [facility] 11:06 AM [facility] TYPE CODE TESTS RESULT OUT OF RANGE REFERENCE UNITS LAB AST 0-45 U/L Normal AST 15 (SGOT) Result Comment: This test result might be falsely depressed or falsely elevated on samples drawn from patients taking Sulfasalazine and Sulfapyridine. Venipuncture should occur prior to taking either of these drugs. LAB ALT 14-65 U/L Normal ALT (SGPT) 23 Result Comment: This test result might be falsely depressed or falsely elevated on samples drawn from patients taking Sulfasalazine and Sulfapyridine. Venipuncture should occur prior to taking either of these drugs. LAB ALKP 40-150 U/L Normal Alkaline Phosphatase 62 LAB BILIT 0.3-1.2 mg/dL Normal Bilirubin,Total 0.8 LAB BILID 0.0-0.4 mg/dL Normal Bilirubin, Direct 0.2 LAB PROT 6.0-8.0 g/dL Normal Protein, Total 6.5 LAB ALB 3.2-5.2 g/dL Normal Albumin 3.4 Performed By: #### HEPF, CHEM8, TSH, CBCDIF, LIPID #### Unless otherwise noted, all testing performed by [address] [address] CLIA: [id number] Local Truck Driver: Alvino Chandler M.D. LIPID PANEL Collected: 05/01/2018 Status: F Source: [facility] 11:06 AM [facility] TYPE CODE TESTS RESULT OUT OF REFERENCE UNITS RANGE LAB CHOL 100-199 mg/dL Cholesterol Normal 167 LAB TRIG 25-120 mg/dL Triglycerides High 158 LAB HDL 40-59 mg/dL HDL Normal 47 LAB LDL 10-150 mg/dL LDL Normal 88 LAB VLDL 5-40 mg/dL VLDL Normal 32 LAB CHOL/HDL 3.2-5.0 CHOL/HDL Ratio Normal 3.6 Result Comment: Female Coronary Heart Disease Risk Factor (CHDRF): Average risk= 4.4 1/2 Average risk= 3.3 2 times Average risk= 7.1 Performed By: #### HEPF, CHEM8, TSH, CBCDIF, LIPID #### Unless otherwise noted, all testing performed by [place] [address] CLIA: [id number] Local Truck Driver: Alvino Chandler M.D. ECHOCARDIOGRAM COMPLETE Observed: 04/25/2018 Status: F Source: [facility] 7:30 AM [facility] REPOSITORY Transthoracic Echocardiogram Patient: IRA ERVIN Crow Med Rec#: [id number] (Age): 1940(77y) Height: 170.18(cm)/66(i Study Date: 04/24/2018 Weight: 71.21(kg)/157(l Room#: BSA: [id number] Type: Outpatient Loc: Sex: F Reading: Neda Nichols MD, RVPI Ordering [facility] Aws Architect: Sendy Thacker RN RDCS History: Cardiotoxic agent exposure (chemotherapy and other). Study Quality The study quality is good. Summary: Patient identity verified (pause and confirm). Current HP present on patient chart. Procedure explained and patient verified understanding. Consent obtained for procedure. Conclusions: There is normal left ventricular systolic function.The ejection fraction is calculated to be 54% using the Method of Disks. Global Longitudinal Strain (GLS) reported as -18.8%. The right ventricle is moderately dilated. There is evidence of moderate pulmonary hypertension.The right ventricular systolic pressure is 53.01 mmHg. Findings Reason For Study: LV function, evaluate. Left Ventricle: The left ventricular chamber size is normal. Global left ventricular wall motion and contractility are within normal limits. There is normal left ventricular systolic function. The Quantified 3D LV Ejection Fraction is 53%. The ejection fraction is calculated to be 54% using the Method of Disks. Global Longitudinal Strain (GLS) reported as -18.8%. indetermiante diastolic function Left Atrium: The left atrial chamber size is normal. Right Ventricle: The right ventricle is moderately dilated. The right ventricular global systolic function is grossly normal. Right Atrium: The right atrial cavity size is normal. Aortic Valve: The aortic valve is trileaflet. There is aortic annular calcification. There is no dilatation of the aortic root. Systolic excursion of the aortic valve is normal. No significant insufficiency. Mitral Valve: The mitral valve leaflets appear normal. No significant insufficiency. Tricuspid Valve: The tricuspid valve leaflets are normal. The right ventricular systolic pressure is 53.01 mmHg. There is evidence of moderate pulmonary hypertension. No significant insufficiency. Pulmonic Valve: The pulmonic valve appears normal. No significant insufficiency. Pericardium: There is no pericardial effusion. Aorta: There is plaque visualized in the ascending aorta. Venous: The inferior vena cava appears normal in size. There is a greater than 50% respiratory change in the inferior vena cava dimension. HR BP 149/94 Measurements Chambers 2D Name Value Normal Range RVIDd (AP) 5.2 cm none RVIDd (AP) 2D 5.15 cm none RVIDd (2D) index 2.82 cm/m2 none IVSd (2D) 0.68 cm none LVPWd (2D) 0.62 cm none IVS:LVPW ratio (2D) 1.1 ratio none LVIDd (2D) 4.65 cm none LVIDs (2D) 3.24 cm none LVIDd (2D) index 2.55 cm/m2 none LVIDs (2D) index 1.78 cm/m2 none LV FS (2D) 30.23 % none LV EF (2D) 54 % (60 - 100) EF Teichholz (2D) 57.57 % none Ao root diameter (2D) 2.8 cm none Volumes/Mass Name Value Normal Range LA ESV SP 4CH (A/L) 56.84 ml none LA ESV SP 2CH (A/L) 53.43 ml none LA ESV BP (A/L) 55.86 ml none LA ESV BP (A/L) index 30.62 ml/m2 none LA ESV SP 4CH (MOD) 54.07 ml none LA ESV SP 2CH (MOD) 51.19 ml none LV EDV SP 4CH (MOD) 65.37 ml none LV ESV SP 4CH (MOD) 30.19 ml none EF SP 4CH (MOD) 53.81 % none LV EDV SP 2CH (MOD) 69.92 ml none LV ESV SP 2CH (MOD) 31.93 ml none EF SP 2CH (MOD) 54.33 % none LV EDV BP 67.99 ml none LV ESV BP 31.41 ml none BP EF (MOD) 53.8 % none LV EDV BP index 37.27 ml/m2 none LV ESV BP index 17.22 ml/m2 none LV mass (2D) 91.7 g none LV mass (2D) index 50.26 g/m2 none RWT 0.27 ratio none Diastolic/Systolic Function Name Value Normal Range MV E-wave Vmax 0.91 m/sec none MV deceleration time 121.02 msec none MV A-wave Vmax 1.09 m/sec none MV E:A ratio 0.84 ratio (1.1 - 1.5) LV septal e' Vmax 0.07 m/sec none LV lateral e' Vmax 0.08 m/sec none LV average e' Vmax 0.08 m/sec none LV E:e' septal ratio 13.79 ratio none LV E:e' lateral ratio 10.82 ratio none LV average E:e' ratio 12.13 ratio none TAPSE 3 cm none Aortic Valve Name Value Normal Range AV Vmax 1.69 m/sec (1 - 1.7) AV VTI 40.87 cm none AV peak gradient 11.39 mmHg (Less Than 36) AV mean gradient 5.35 mmHg (Less Than 20) LVOT Vmax 0.73 m/sec (0.7 - 1.1) LVOT VTI 23.55 cm none LVOT peak gradient 2.15 mmHg none LVOT mean gradient 0.99 mmHg none DOI (VTI) 0.58 ratio none DOI (Vmax) 0.43 ratio none Mitral Valve Name Value Normal Range MV Vmax 1.06 m/sec (0.6 - 1.3) MV VTI 36.18 cm none MV peak gradient 4.49 mmHg none MV mean gradient 1.67 mmHg none MV PHT 35.33 msec none MVA (PHT) 6.23 cm2 none Tricuspid Valve Name Value Normal Range TR Vmax 3.54 m/sec none TR peak gradient 50.01 mmHg none RAP 3 mmHg none RVSP 53.01 mmHg none Pulmonic Valve/Qp:Qs Name Value Normal Range PV Vmax 0.95 m/sec (0.6 - 0.9) PV VTI 21.44 cm none PV peak gradient 3.58 mmHg none PV mean gradient 1.73 mmHg none Electronically Signed at 04/25/2018 07:30:02 by: Neda Nichols MD, RVPI CT NECK W/CONTRAST Observed: 04/06/2018 Status: F Source: [facility] 9:41 AM [facility] Final Report Accession No: [id number] Performed: Apr 06 2018 9:41AM Examination: CT NECK W/CONTRAST EXAM: CT NECK W/CONTRAST. CLINICAL STATEMENT: History of lymphoma. Lump right neck. COMPARISON: CT scan performed 10/31/[address] scan performed 11/01/2016. TECHNIQUE: CT examination of the soft tissues of the neck following the administration of 75 mL Isovue-370 contrast. Coronal and sagittal reformations were performed. Dose reduction techniques were achieved by using automated exposure control and/or adjustment of mA and/or kV according to patient size and/or use of iterative reconstruction technique. FINDINGS: Right neck subcutaneous heterogeneous nodule with ill-defined margins abutting the anterior margin of the external ear, lateral margin of the temporomandibular joint, and superior margin of the parotid gland. This lesion measures approximately 30 x 21 x 14 mm in craniocaudad and transverse dimension. Prominent heterogeneous calcification with spiculation involving the anterior margin of the right sternocleidomastoid muscle region of the jugular vein and lateral margin of the carotid sheath. The nasopharynx, oropharynx, and larynx are otherwise normal in appearance. The left parotid gland, left submandibular gland, and left thyroid are normal in appearance. Hypoplastic right thyroid. Probable resection of the right submandibular gland as well as fatty infiltration of the right parotid gland. No evidence of adenopathy. Lung apices are clear. Postsurgical changes left suboccipital craniectomy. When compared to the prior examination, the lesion anterior to the external ear is new when compared to examination performed 11/01/2016 and has increased in size when compared to examination performed 10/31/2017. At that date the lesion measured approximately 13 x 10 x 12 mm in craniocaudad and transverse dimension. IMPRESSION: 1. Subcutaneous spiculated lesion measuring 30 x 21 x 14 mm in diameter, right neck immediately anterior to the external ear. This is increased in size from a prior measurement of 13 x 10 x 12 mm on examination performed 10/31/2017. 2. Stable calcification right neck. 3. No evidence of adenopathy. 4. Incidental note is made of opacification of the right mastoid as well as right external auditory canal and middle ear. Interpreting Physician: FAREED WANG M.D. Trans: [email or web address] : cc: CREATININE WITH EGFR Collected: 04/06/2018 Status: F Source: [facility] 9:21 AM [facility] TYPE CODE TESTS RESULT OUT OF RANGE REFERENCE UNITS LAB CREA 0.60-1.20 mg/dL Normal Creatinine 1.1 LAB eGFR >60 ml/min/1.7 Low 3sq.m eGFR,NonAfrican- 48 Romanian Result Comment: eGFR is an estimated Glomerular Filtration Rate based on the value of the patient's serum creatinine. In outpatients, eGFR should be used as a helpful tool in screening for CKD. In inpatients or patients with acute renal failure, eGFR represents the GFR at the moment of the draw and should be used with caution. LAB eGFRB >60 ml/min/1.73sq.m eGFR, -Romanian Low 59 Performed By: #### CREAT #### Unless otherwise noted, all testing performed by [facility] [address] [place], [place] [address] CLIA: [id number] Local Truck Driver: Alvino Chandler M.D. US NECK SOFT TISSUE Observed: 03/31/2018 Status: F Source: [facility] 11:23 AM [facility] Final Report Accession No: [id number] Performed: Mar 31 2018 11:23AM Examination: US NECK SOFT TISSUE EXAM TYPE: US NECK SOFT TISSUE. EXAM DATE AND TIME: 03/31/2018, 11:23 AM. INDICATION: 77-year-old female with left cheek swelling. COMPARISON: None. TECHNIQUE: Superficial soft tissue ultrasound of the left cheek region. FINDINGS: 2.2 x 2.2 x 1.4 cm heterogeneous hypoechoic amorphous mass demonstrated within the subcutaneous soft tissues anterior to the left ear. Color Doppler evaluation demonstrates scattered areas of vascularity. IMPRESSION: Indeterminate 2.2 cm heterogeneous mass within the subcutaneous soft tissues located anterior to the left ear. Recommend further evaluation with contrast-enhanced CT neck. Interpreting Physician: ITZEL SAMANO D.O. Trans: [email or web address] : cc: CBC WITH DIFF Collected: 01/31/2018 Status: F Source: [facility] 10:58 AM [facility] TYPE CODE TESTS RESULT OUT OF RANGE REFERENCE UNITS LAB WBC 3.4-10.6 K/mcL WBC Normal 5.6 LAB RBC 3.7-5.0 M/mcL RBC Normal 4.40 LAB HGB 11.6-15.4 g/dL Normal Hemoglobin 13.3 LAB HCT 34.4-44.8 % Normal Hematocrit 39.5 LAB MCV 82.6-98.9 FL MCV Normal 89.9 LAB MCH 27.9-33.9 pg MCH Normal 30.3 LAB MCHC 33.1-35.1 g/dL MCHC Normal 33.7 LAB RDW 10.0-14.4 % High RDW 14.8 LAB PLT 162-402 K/mcL Low Platelet Count 118 LAB MPV 7.0-10.6 FL MPV Normal 7.4 LAB NEUT# 1.2-6.9 K/mcL Normal Neutrophil # 3.8 LAB LYMPH# 1.0-3.7 K/mcL Normal Lymphocyte # 1.1 LAB MONO# 0.1-0.6 K/mcL Monocyte Normal # 0.3 LAB EOS# 0-0.5 K/mcL Normal Eosinophil # 0.3 LAB BASO# 0-0.2 K/mcL Basophil Normal # 0.0 LAB SEGNEU% % Normal Segmented Neut % 68.5 LAB LYMP% % Normal Lymphocyte% 20.2 LAB MO% % Monocyte Normal % 5.4 LAB EO% % Normal Eosinophil % 5.1 LAB BA% % Basophil Normal % 0.8 Performed By: #### HEPF, CBCDIF, TSH, CHEM8, LIPID #### Unless otherwise noted, all testing performed by [place] [address] CLIA: [id number] Local Truck Driver: Alvino Chandler M.D. TSH Collected: 01/31/2018 Status: F Source: [facility] 10:58 AM [facility] TYPE CODE TESTS RESULT OUT OF RANGE REFERENCE UNITS LAB TSH 0.320-5.000 uIU/mL Normal TSH 3.16 Result Comment: Samples from patients routinely receiving high dose biotin therapy (100-300 mg/day) may show falsely decreased results. Please correlate clinically. Performed By: #### HEPF, CBCDIF, TSH, CHEM8, LIPID #### Unless otherwise noted, all testing performed by [place] [address] CLIA: [id number] Local Truck Driver: Alvino Chandler M.D. HEPATIC FUNCTION Collected: 01/31/2018 Status: F Source: [facility] PANEL 10:58 AM [facility] REPOS[facility] TYPE CODE TESTS RESULT OUT OF RANGE REFERENCE UNITS LAB AST 0-45 U/L Normal AST 16 (SGOT) Result Comment: This test result might be falsely depressed or falsely elevated on samples drawn from patients taking Sulfasalazine and Sulfapyridine. Venipuncture should occur prior to taking either of these drugs. LAB ALT 14-65 U/L Normal ALT (SGPT) 32 Result Comment: This test result might be falsely depressed or falsely elevated on samples drawn from patients taking Sulfasalazine and Sulfapyridine. Venipuncture should occur prior to taking either of these drugs. LAB ALKP 40-150 U/L Normal Alkaline Phosphatase 64 LAB BILIT 0.3-1.2 mg/dL Normal Bilirubin,Total 0.4 LAB BILID 0.0-0.4 mg/dL Normal Bilirubin, Direct < 0.1 LAB PROT 6.0-8.0 g/dL Normal Protein, Total 6.6 LAB ALB 3.2-5.2 g/dL Normal Albumin 3.4 Performed By: #### HEPF, CBCDIF, TSH, CHEM8, LIPID #### Unless otherwise noted, all testing performed by [place] [address] [address] [place], [place] [address] CLIA: [id number] Local Truck Driver: Alvino Chandler M.D. BASIC METABOLIC PANEL Collected: 01/31/2018 Status: F Source: [facility] 10:58 AM [facility] TYPE CODE TESTS RESULT OUT OF REFERENCE UNITS RANGE LAB GLU 70-99 mg/dL High Glucose 114 Result Comment: This test result might be falsely depressed or falsely elevated on samples drawn from patients taking Sulfasalazine and Sulfapyridine. Venipuncture should occur prior to taking either of these drugs. LAB BUN 8-25 mg/dL BUN High 28 LAB CREA 0.60-1.20 mg/dL Creatinine 1.02 LAB eGFR >60 ml/min/1.73s Low q.m eGFR,NonAfrican-Am erican 53 Result Comment: Non- GFR Calc eGFR is an estimated Glomerular Filtration Rate based on the value of the patient's serum creatinine. In outpatients, eGFR should be used as a helpful tool in screening for CKD. In inpatients or patients with acute renal failure, eGFR represents the GFR at the moment of the draw and should be used with caution. LAB eGFRB ml/min/1.73sq.m eGFR, -Romanian >=60 Result Comment: GFR Calc LAB CALCM 8.4-10.2 mg/dL Calcium 8.4 LAB NA 135-145 mmol/L Sodium 139 LAB K 3.5-5.1 mmol/L Potassium 4.0 LAB CL 98-108 mmol/L Chloride 106 LAB CO2 21-32 mmol/L CO2 26 Performed By: #### HEPF, CBCDIF, TSH, CHEM8, LIPID #### Unless otherwise noted, all testing performed by [place] [address] CLIA: [id number] Local Truck Driver: Alvino Chandler M.D. LIPID PANEL Collected: 01/31/2018 Status: F Source: [facility] 10:58 AM [facility] TYPE CODE TESTS RESULT OUT OF REFERENCE UNITS RANGE LAB CHOL 100-199 mg/dL Cholesterol Normal 123 LAB TRIG 25-120 mg/dL Triglycerides High 139 LAB HDL 40-59 mg/dL HDL Normal 40 LAB LDL 10-150 mg/dL LDL Normal 56 LAB VLDL 5-40 mg/dL VLDL Normal 28 LAB CHOL/HDL 3.2-5.0 Low CHOL/HDL Ratio 3.1 Result Comment: Female Coronary Heart Disease Risk Factor (CHDRF): Average risk= 4.4 1/2 Average risk= 3.3 2 times Average risk= 7.1 Performed By: #### HEPF, CBCDIF, TSH, CHEM8, LIPID #### Unless otherwise noted, all testing performed by [place] [address] CLIA: [id number] Local Truck Driver: Alvino Chandler M.D. ALLERGIES ALLERGIES DATE TYPE / CODE NAME / CODE REACTION SEVERITY SOURCE 10/19/2018 Miscellaneous EGGS Nausea Unknown [place] Allergy/[id number]([facility]) Hospital Repository 10/19/2018 Miscellaneous HAYFEVER Itching Unknown [place] Allergy/823946275([facility]) Hospital Repository Drug NO KNOWN [facility] Class/[id number](SNO ALLERGIES Three MED CT) Repository ENCOUNTERS ENCOUNTERS ADMIT/DISCHARGE ACCOUNT NUMBER ADMITTING ENCOUNTER LOCATION SOURCE CLASS 12/04/2018 [id number] Ambulatory [address] [place] [address] Repository 11/17/[id number] Donna Ambulatory [facility] Repository 10/19/2018 [id number] Ambulatory BMSBuilding: [place] BMS.CF.[facility] Repository 10/19/2018 [id number] Ambulatory [facility] ding:OMD Repository 10/02/2018 [id number] Ambulatory [address] [place] [address] Repository 09/27/2018 [id number] Ambulatory [address] [place] [address] Repository 09/21/2018 [id number] Ambulatory [facility] ding:SP Repository 09/20/2018 [id number] Ambulatory BMSBuilding: [place] BMS.CF.[facility] Repository 09/13/2018 [id number] Ambulatory BMSBuilding: [place] BMS.CF.[facility] Repository 09/06/2018 [id number] Ambulatory BMSBuilding: [place] BMS.CF.[facility] Repository 08/30/2018 [id number] Ambulatory BMSBuilding: [place] BMS.CF.[facility] Repository 08/23/2018 [id number] Ambulatory BMSBuilding: [place] BMS.CF.[facility] Repository 08/16/2018 [id number] Ambulatory BMSBuilding: [place] BMS.CF.[facility] Repository 08/14/2018 [id number] Ambulatory [address] [place] [address] Repository 08/09/2018 [id number] Ambulatory BMSBuilding: [place] BMS.CF.[facility] Repository 08/04/2018 [id number] Ambulatory BMSBuilding: [facility] Repository 07/31/2018 [id number] Ambulatory Building:[facility] Repository 07/26/2018 [id number] Ambulatory BMSBuilding: [facility] Repository 07/20/2018 [id number] Ambulatory BMSBuilding: [place] BMS.CF.[facility] Repository 07/19/2018 [id number] [facility] ding:[facility] Repository 07/03/2018 [id number] Ambulatory [address] [place] [address] Repository 06/27/2018 [id number] Ambulatory Building:[facility] Three ER Repository 06/20/2018/06/24/[id number] Jessica Inpatient UHCBuilding: [place] [address] Sharad Encounter F654Vice: [facility] I4875Pfl: Repository [id number] 06/14/2018 [id number] Kelli Kim Ambulatory [facility] Repository 06/09/2018 [id number] Miscellaneou Ambulatory [facility] Repository 06/06/2018 [id number] Ambulatory [facility] Repository 06/06/2018 [id number] Ambulatory [facility] Repository 05/29/2018 [id number] Ambulatory [address] [place] [address] Repository 05/29/2018 [id number] Ambulatory [facility] Repository 05/12/2018 [id number] Ambulatory [facility] Repository 05/10/2018 [id number] Ambulatory [facility] Repository 05/01/2018/05/01/[address] [id number] Keila [address] Regional ding:[facility] Repository 05/01/2018 [id number] Ambulatory [address] [place] [address] Repository 04/25/2018 [id number] Ambulatory [place]in [facility] [place] Repository 04/24/2018/04/24/20 [id number] Ambulatory Building:[address] Repository 04/24/[id number] Donna Ambulatory [facility] Repository 04/10/2018/04/10/20 [id number] Ambulatory Building:[place] [address] [facility] ER Repository 04/06/2018 [id number] Alvarez, Ambulatory [facility] Repository 03/31/2018 [id number] [place], Ambulatory [facility] Repository 03/29/2018 [id number] Ambulatory [facility]in[place] [facility] [place] Repository 03/15/2018 [id number] Ambulatory [place] [facility] [place] Repository 02/27/2018 [id number] Ambulatory Buildin [facility] ([place] Repository 02/27/2018/02/28/20 [id number] [facility] [place] ([place] Repository 02/15/2018 [id number] [facility]ulatory [facility] [place] Repository PAYERS PAYERS ENCOUNTER GUARANTOR PAYER SUBSCRIBER SOURCE 12/04/2018 ARCADIO Maria Primary ARCADIO Maria [employer] IRADOB: Insurance:Humana Iftikhar ROTHDOB: [facility] Division[facility] Number: [id number] Repository [facility] [id number] 5 [place], [place] Date:Plan Name:[facility] [id number]: [place], [place] [id number]: () (HP) 11/17/2018 Primary ARCADIO Maria [facility] Insurance:Humanvinay MOCTEZUMAB: [facility] Number: [id number] [facility] [id number] 5 [facility] Repository Date:6586-07-55UeszBr[place], [place] Name:Health [address]Lbn: (HP) 10/19/2018 ARCADIO Maria Primary ARCADIO [place] [id number] Insurance:MAKAYLA KERN: [facility][1] MEDICARE [facility] [id number], [place] Number: Repository [id number]: 419 [id number] [phone] (HP) Date:3983-01-06PA[address] [address]TN: 10/19/2018 Secondary NOT GIVENUNK [place] Insurance:SELF PAY [facility] Number: Effective Repository Date:2018-10-19 10/19/2018 ARCADIO Maria Primary ARCADIO [place] [id number] Insurance:MAKAYLA MOCTEZUMAB: [facility][1] MEDICARE OPolicy [id number], [place] Number: Repository [address]Frd: 419 [id number] [phone] (HP) Date:0832-22-89DV [address] [place] [address]WP: 10/19/2018 Secondary NOT GIVENUNK [place] Insurance:SELF PAY [facility] Number: Effective Repository Date:2018-07-17 10/02/2018 ARCADIO Maria Primary ARCADIO Maria [facility] TylerDOB: Insurance:Humana [facility]: [facility] Number: [id number] [facility] [id number] 5 [place], [place] Date:Plan Name:[facility] [id number]: [place], [place] [id number]: () () 09/27/2018 ARCADIO MOCTEZUMAB: Primary ARCADIO MOCTEZUMAB: [place] Insurance:[facility] [id number] [place] [address] Number: 5 [place], [place] [id number] [place] [id number]: Date:Plan Name:[place], [place] [id number]: () () 09/21/2018 ARCADIO Maria Primary ARCADIO [id number] Insurance:HUMANA CLINTONDOB: Community [place] MEDICARE PPOPolicy [id number], [place] Number: Repository [address]Nvg: 419 [id number] [phone] (HP) Date:8736-80-39EB [address] [place] [address]JD: 09/21/2018 Secondary NOT GIVENUNK [place] Insurance:SELF PAY [facility] Number: Effective Repository Date:2018-09-06 09/20/2018 ARCADIO Maria Primary ARCADIO [id number] Insurance:HUMANA CLINTONDOB: Community [place] MEDICARE PPOPolicy [id number], [place] Number: Repository [address]Nxy: (378) [id number] [phone] (HP) Date:0114-47-35OG [address] [place] [address]QH: 09/20/2018 Secondary NOT GIVENUNK [place] Insurance:SELF PAY [facility] Number: Effective Repository Date:2018-09-20 09/13/2018 ARCADIO J Primary ARCADIO J [place] [id number] Insurance:HUMANA ARNOLDDOB: [facility][1] MEDICARE [facility] [id number], [place] Number: Repository [id number]: 419 [id number] () Date:5270-61-12BI [address] [place] [address]OH: 09/13/2018 Secondary NOT GIVENUNK [place] Insurance:SELF PAY [facility] Number: Effective Repository Date:2018-09-13 09/06/2018 ARCADIO J Primary ARCADIO J [place] [id number] Insurance:HUMANA ARNOLDDOB: [facility][1] MEDICARE [facility] [id number], [place] Number: Repository [id number]: 419 [id number] () Date:5811-19-72OK [address] [address]BO: 09/06/2018 Secondary NOT GIVENUNK [place] Insurance:SELF PAY [facility] Number: Effective Repository Date:2018-09-06 08/30/2018 ARCADIO J Primary ARCADIO J [place] [id number] Insurance:HUMANA ARNOLDDOB: Community [place] MEDICARE PPOPolicy [id number], [place] Number: Repository [address]Lsj: 419 [id number] [phone] () Date:3624-75-22CT [address] [place] [address]GZ: 08/30/2018 Secondary NOT GIVENUNK [place] Insurance:SELF PAY [facility] Number: Effective Repository Date:2018-08-30 08/23/2018 ARCADIO J Primary ARCADIO J [place] [id number] Insurance:HUMANA ARNOLDDOB: Community [place] MEDICARE PPOPolicy [id number], [place] Number: Repository [phone]: 419 [id number] [phone] () Date:4490-17-14AY [address] [address]UW: 08/23/2018 Secondary NOT GIVENUNK [place] Insurance:SELF PAY [facility] Number: Effective Repository Date:2018-08-23 08/16/2018 ARCADIO Maria Primary ARCADIO J [place] [id number] Insurance:HUMANA ARNOLDDOB: Community [place] MEDICARE PPOPolicy [id number], [place] Number: Repository [address]Pus: 419 [id number] [phone] () Date:8155-49-56BO [address] [address]BY: 08/16/2018 Secondary NOT GIVENUNK [place] Insurance:SELF PAY [facility] Number: Effective Repository Date:2018-08-16 08/14/2018 ARCADIO MOCTEZUMAB: Primary ARACDIO MOCTEZUMAB: [place] Insurance:Humana [facility] [id number] Number: 5 [place], [place] [id number] [place] [id number]: Date:Plan Name:Health [place], [place] [id number]: () () 08/09/2018 ARCADIO Maria Primary ARCADIO J [place] [id number] Insurance:HUMANA ARNOLDDOB: Community [place] MEDICARE PPOPolicy [id number], [place] Number: Repository [address]Egw: 419 [id number] [phone] () Date:5403-72-58WG[address] [address]OY: 08/09/2018 Secondary NOT GIVENUNK [place] Insurance:SELF PAY [facility] Number: Effective Repository Date:2018-08-09 08/04/2018 ARCADIO J Primary ARCADIO J [place] [id number] Insurance:HUMANA ARNOLDDOB: Community [place] MEDICARE PPOPolicy [id number], [place] Number: Repository [address]Wzp: 419 [id number] [phone] (HP) Date:2772-00-57VD [address] [place] [address]JS: 08/04/2018 Secondary NOT GIVENUNK [place] Insurance:SELF PAY [facility] Number: Effective Repository Date:2018-08-04 07/31/2018 ARCADIO J Primary ARCADIO J [facility] ARNOLDDOB: Insurance:HUMANA ARNOLDDOB: [facility] Repository [id number] MANAGED [id number] [place] NO MEDICAREPolicy 5 [place], [place] Number: NORTH [address]Tfp: 419 [id number] [place], [place] [phone] (HP) Date:4046-64-91JB [address] [address] [place] [address]BU: 07/26/2018 ARCADIO J Primary ARCADIO J [place] [id number] Insurance:HUMANA ARNOLDDOB: Community [place] MEDICARE PPOPolicy [id number], [place] Number: Repository [address]Pgx: 419 [id number] [phone] (HP) Date:9287-20-41PA [address] [place] [address]XO: 07/26/2018 Secondary NOT GIVENUNK [place] Insurance:SELF PAY [facility] Number: Effective Repository Date:2018-07-26 07/20/2018 ARCADIO J Primary ARCADIO J [place] [id number] Insurance:HUMANA ARNOLDDOB: Community [place] MEDICARE PPOPolicy [id number], [place] Number: Repository [address]Dof: 419 [id number] [phone] (HP) Date:4499-97-53ZS [address] [place] [address]EL: 07/20/2018 Secondary NOT GIVENUNK [place] Insurance:SELF PAY [facility] Number: Effective Repository Date:2018-07-20 07/19/2018 ARCADIO Crow Primary ARCADIO Maria Jain [facility]AL[facility]AB: Insurance:HUMANAPolic ARNOLDDOB: [facility] y Number: Effective [id number] [facility] Date:2018-07-14 [place], [place] 7554-31-11Ztfy NORTH [address]Lsn: Name::[id number] [place] [address] [place] [address]Dye: (GS) [id number]: [phone] (HP) () 07/03/2018 ARCADIO Maria Primary ARCADIO Maria [place] IRADOB: Insurance:Humana [facility]: [facility] Number: [id number] [facility] [id number] 5 [place], [place] Date:Plan Name:[facility] [phone]: [phone] [place], [place] [phone] () [phone]: () 06/27/2018 ARCADIO J Primary ARCADIO J [facility] ARNOLDDOB: Insurance:HUMANA ARNOLDDOB: Three Repository MANAGED [id number] [place] NO MEDICAREPolicy 5 [place], [place] Number: [place] [address]Xpe: (711) [id number] [place], [place] [phone] () Date:1021-31-15RV [address] [address] [place] [address]QS: 06/20/2018 ARCADIO MOCTEZUMAB: Primary ARCADIO MOCTEZUMAB: [place] Insurance:Humana Gold [id number] [facility] ChoicePolicy Number: 5 [place], [place] [id number] [place] [id number]: Date:Plan Name:[place], [place] [phone]: (HP) (HP) 06/14/2018 Primary ARCADIO J [facility] Insurance:Humana IRAB: [facility] Number: [id number] [facility] [id number] 5 [facility] Repository Date:1207-37-77Oeyl [place] Name:Health [address]Pnq: (HP) 06/09/2018 Primary ARCADIO J [facility] Insurance:Humana BERTOLDDOB: [facility] Number: [id number] [facility] [id number] 5 [facility] Repository Date:4000-35-96Nacv [place] Name:Health [address]Zfs: (HP) 06/06/2018 ARCADIOREYNOLD MOCTEZUMAB: Primary ARCADIO MOCTEZUMAB: [place] Insurance:Humana [facility] [id number] [facility] ChoicePolicy Number: 5 [place], [place] [id number] [place] [address]Jei: (419) Date:Plan Name:[place], [place] [phone] (HP) [address]Wli: (HP) 06/06/2018 Secondary ARCADIO MOCTEZUMAB: [place] Insurance:MedicarePol [id number] [facility] icy Number: 5 [facility] [id number] [place] Date: - [place], [place] 7889-09-93Huvf [address]Ilm: (419) Name:Meng [place] [phone] (HP) 06/06/2018 Tertiary ARCADIO KERN: [place] Insurance:MedicarePol [id number] [facility] icy Number: 5 [facility] [id number] [place] Date:2017-11-21 - [place], [place] 9587-26-58Bzae [address]Vfx: (419) Name:Meng Diamond [phone] (HP) 06/06/2018 ARCADIOREYNOLD ROTHB: Primary ARCADIO ROTHB: [place] Insurance:[facility] [id number] [facility] ChoicePolicy Number: 5 [facility] [place] [id number] [place] [address]Zix: (419) Date:Plan Name:[place], [place] [phone] () 48[address]Bez: () 06/06/2018 Secondary ARCADIO MOCTEZUMAB: [place] Insurance[facility] [id number] [facility] icy Number: 5 [place] Repository [id number] [place] Date: - [place], [place] 8370-17-33Qbfl [address]Enj: (419) Name:Meng Coronado [phone] () 06/06/2018 Tertiary ARCADIO MOCTEZUMAB: [place] Insurance:MedicarePol [id number] [facility] icy Number: 5 [place] Repository [id number] [place] Date:2017-11-21 - [place] 6614-81-65Wlqk [address]Ymg: (419) Name:Meng Diamond [phone] () 06/06/2018 Tertiary ARCADIO MOCTEZUMAB: [place] Insurance:[facility] [id number] [facility] y Number: 5 [facility] [id number] [place] Date: - [place], [place] 6458-53-83Jmuw 14[address]Tal: (419) Name:[facility] [phone] () 05/29/2018 ARCADIO MOCTEZUMAB: Primary ARCADIO ROTHB: [place] Insurance:[facility] [id number] [place] [address] ChoicePolicy Number: 5 [place], [place] [id number] [place] [address]Ses: (419) Date:Plan Name:[place], [place] [phone] () 553[address]Iet: () 05/29/2018 ARCADIOREYNOLD NOELLALITHAB: Primary ARCADIO ROTHB: [place] Insurance:[facility] [id number] [facility] Number: 5 [place], [place] [id number] [place] [address]Eqd: (419) Date:Plan Name:[place], [place] [phone] (HP) [address]Wce: (HP) 05/12/2018 ARCADIO MOCTEZUMAB: Primary ARCADIO MOCTEZUMAB: [place] [id number] Insurance:[facility] [id number] [facility] Number: 5[place], [place] [id number] NORTH [address]Biv: (419) Date:Plan Name:[place], [place] [phone] (HP) [address]Feg: (HP) 05/12/2018 Secondary ARCADIO MOCTEZUMAB: [place] Insurance:MedicarePol [id number] [facility] icy Number: Effective [place] Repository Date:Plan Name:[place], [place] [address]Okx: (HP) 05/10/2018 ARCADIO MOCTEZUMAB: Primary ARCADIO MOCTEZUMAB: [place] Insurance:[facility] [id number] [place] [address] Number: 5 [place], [place] [id number] [place] [address]Qir: (419) Date:Plan Name:[place], [place] [phone] (HP) [address]Sho: (HP) 05/01/2018 ARCADIO Maria Primary ARCADIO MOCTEZUMAB: [facility] y Number: Effective [id number] [facility] Date:2018-05-02 [place] 2802-27-45Nldt NORTH [address]Erb: Name:CD:[id number] [id number] [place] [address]Zhk: (HP) [id number]: [phone] (HP) (WP) 05/01/2018 ARCADIO MOCTEZUMAB: Primary ARCADIO KERN: [place] Insurance:Humanvinay Buitrago [id number] [facility] Number: 5 [place], [place] [id number] [place] [id number]: Date:Plan Name:[facility] [place] [id number]: (HP) (HP) 04/24/2018 ARCADIO J Primary ARCADIO J [facility] ARNOLDDOB: Insurance:HUMANA RHIANNAB: Three Repository MANAGED [id number] [place] NO MEDICAREPolic 5 [place] Number: [place] [address]Mce: (083) [id number] [place], [place] [phone] (HP) Date:7058-22-95XD [address] [address] [place] [address]IB: 04/24/2018 Primary ARCADIO J [facility] Insurance:Makayla KERN: Romie sanchez [facility] Number: [id number] [facility] [id number] 5 [facility] Repository Date:3189-93-38QhvfBr[place], [place] Name:[facility] [address]Qft: (HP) 04/10/2018 ARCADIO J Primary ARCADIO J [facility] ARNOLDDOB: Insurance:HUMANA RHIANNAB: Three Repository MANAGED [id number] [place] NO MEDICAREPolicy 5 [place] Number: [place] [address]Dnq: (779) [id number] [place], [place] [phone] (HP) Date:[id number] [address] [place] [id number]: 04/06/2018 Primary ARCADIO J [facility] Insurance:[employer] RHIANNAB: [facility] Number: [id number] [facility] [id number] 5 [facility] Repository Date:[id number] [place], [place] Name:Health [id number]: () 03/31/2018 Primary ARCADIO Crow [facility] Insurance:Makayla KERN: [facility] Number: [id number] [facility] [id number] 5 [facility] Repository Date:[id number] [place], [place] Name:Health [id number]: ()
== END 2018-09-21 19:00 | disposition home or self-care (01) ==
LOC: SP 09:15
PROVIDERS: Referring Provider Student in an Organized Health Care Education/Training Program; Visit Provider Student in an Organized Health Care Education/Training Program
DX: C44.300 Unspecified malignant neoplasm of skin of unspecified part of face (principal); R25.2 Cramp and spasm
CPT/HCPCS: 92526; 92610

== ENCOUNTER → 2018-12-25 08:26 | Outpatient (CLI) | payer MEDICARE, SELFPAY ==
[2018-07-20 11:05] VITALS: BMI 21.4
--- NOTE | 2018-12-25 07:11 | PET_ITS ---
EXAMINATION: FDG PET CT INDICATIONS: A 78-year-old female with reported history of head and neck presenting for restaging examination and prior history of lymphoma. COMPARISON EXAMINATION: Prior FDG PET study dated 07/31/18. INDEX LESION SIZE SUV INTERPRETATION PERSISTENT: Right lateral neck, parotid space 1.9 compared to 2.6, 07/31/18 Quantitative criteria for viable neoplasm not fulfilled TECHNIQUE: Following the intravenous administration of 16 mCi of F-18 deoxyglucose via the left antecubital fossa, multiplanar image acquisitions of the neck, chest, abdomen and pelvis to level of mid thigh, obtained at one hour post radiopharmaceutical administration contemporaneously interpreted with the current CT of the neck, chest, abdomen and pelvis to level of mid thigh, dated 12/25/18 via coregistration and prior FDG PET study dated 07/31/18 reveal: SERUM GLUCOSE LEVEL: 105 mg/dl. HEIGHT: 68 inches. WEIGHT: 150 lbs. FINDINGS: 1. There is a mild asymmetric increase in glucose metabolism persistently manifest in the right lateral neck, parotid space on the current examination generating a calculated maximum standard uptake value of 1.9 compared 2.6 defined on the FDG PET study dated 07/31/18. Quantitative criteria for viable neoplasm are not fulfilled. 2. Normal physiologic distribution of the radiopharmaceutical is apparent in the hepatic (3.1/3.9) and splenic parenchyma, both renal units, bladder and visualized intestinal tract. There is uniform distribution of the radiopharmaceutical concentration defined in the visualized cerebellar hemispheres and cerebral cortical structures.? Diffuse intestinal tract activity is noted throughout all four quadrants of the abdominal-pelvic retroperitoneum, mesentery consistent with normal physiologic distribution of the radiopharmaceutical. Prominent glucose metabolism is defined in the ascending and descending thoracic aorta commensurate with activated leukocytes associated with atherosclerotic plaque formation. (Jonathan et al, Clinical Nuclear Medicine 29:93, 2004). The prior defined right lateral neck hypermetabolic focus noted on the FDG PET study dated 07/31/18 is not readily apparent on the current examination. An asymmetric decrease in glucose concentration remains evident in the left cerebellar hemisphere unchanged compared to the examination dated 07/31/18. Jywp-P-Iyzn-MediPort placement is noted. The prior defined morphologic-anatomic changes noted on CT of the neck, chest, abdomen and pelvis manifest on the FDG PET CT study dated 07/31/18 are essentially unchanged on the present examination. PET/PET/CT Tumor Base -Thigh Subs IMPRESSION: 1. NEGATIVE EXAMINATION. There is no definitive quantitative scintigraphic evidence of recurrent-metastatic viable neoplasm. 2. Mild increased glucose concentration observed in the right lateral neck, parotid space does not fulfill quantitative criteria for viable neoplasm. 3. Overall, compared to the prior FDG PET study dated 07/31/18, there is apparent current absence of defined viable neoplastic disease. Electronic Signature Nicolas Lund D.O. Electronically Signed: Nicolas Lund DO at 23:35 EST Tel , Service support ,
== END ==
PROVIDERS: Visit Provider Student in an Organized Health Care Education/Training Program
DX: C44.329 Squamous cell carcinoma of skin of other parts of face (principal)
CPT/HCPCS: 78815; A9552